=== PATIENT | male | born 1945 | race Caucasian/White ===

== ENCOUNTER → 2020-02-05 14:33 | Outpatient (BNVA) | payer MEDICARE, MEDICAID, SELFPAY | PROVIDERS: Family Provider Family Medicine; Referring Provider Physician Assistant Medical; Visit Provider Specialist | DX: M25.559 Pain in unspecified hip (principal); Z96.641 Presence of right artificial hip joint | CPT/HCPCS: 72170 ==

== ENCOUNTER → 2020-04-01 16:30 | Outpatient (BNVA) | payer MEDICARE, MEDICAID, SELFPAY | PROVIDERS: Family Provider Family Medicine; Visit Provider Specialist | DX: M16.12 Unilateral primary osteoarthritis, left hip (principal) | CPT/HCPCS: 81000; 87081 ==

== ENCOUNTER 2020-04-07 06:26 | Inpatient (IN) | payer MEDICARE, MEDICAID, SELFPAY ==
--- NOTE | 2020-04-03 14:55 | ECG_ITS ---
[facility] Test Date: 2020-04-03 Pat Name: Ted Borden Department: Room: Gender: Male Core Dipper: : 1945 Requested By: Swathi Kidd Order Number: [id number] Trevor MD: Grant Peguero M.D. Measurements Intervals [place] Rate: 67 P: 78 WV: 165 QRS: -35 QRSD: 135 T: 28 QT: 426 QTc: 450 Interpretive Statements SINUS RHYTHM MARKED LEFT AXIS DEVIATION [QRS AXIS < -30] INTRAVENTRICULAR CONDUCTION DELAY [130+ ms QRS DURATION] POSSIBLE LEFT VENTRICULAR HYPERTROPHY [VOLTAGE CRITERIA PLUS LAE OR QRS WIDENING] No previous ECG available for comparison Electronically Signed On 04-03-2020 16:12:12 CDT by Grant Peguero M.D. [id number]
--- NOTE | 2020-04-03 15:05 | XR_ITS ---
WS: [id number] Chest 2 views, 04/03/2020 Clinical Data: preop Comparison: None. Findings: No nodules, masses or effusions are seen. The heart is normal. The pulmonary vascularity is not increased. No pneumonia or pneumothorax is seen. XR/XR chest 2V* [id number] Impression: Negative chest.
--- NOTE | 2020-04-03 15:17 | P.ANESASSM_ITS ---
Pre-Anesthetic Assessment Pre-Anesthetic Assessment: Height/Weight: Height 1.8 m Weight 119.748 kg Preop Diagnosis: Left hip DJD Proposed Procedure: Operation Date: 04/07/20 08:50 Proposed Procedures p Total Hip Arthroplasty 95524/ m16.12 left hip osteoarthritis(Left) - Felicia Duarte MD Familial anesthetic complications: None Social: Social History: Tobacco Exam: Pre-Anes Outpt Exam: alert, oriented x 3, clear to auscultation bilaterally and regular rate & rhythm Additional Exam Findings (including area of procedure): coarse and diminshed breath sounds Airway: Cervical ROM: WNL MP: 3 Dentition: Other (edentulous) Additional comments: full najera Pulmonary: Pulmonary: COPD (wears 2 L NC during day and 3 L NC at night), ANDREW and Sleep apnea (cpap and night) CV/HEM: CV/HEM: Afib (no recent episodes), Angina (Stable) (hx of chest pains), CAD (stent placed 2013), HTN, AR and PVD Comments: echo 02/06 ef 60%, mild LVH, Mild Metabolic: Metabolic: Morbid obesity Musc/skel: Comments: wheelchair because of hip pain Neuropsych: Comments: B/L carotid stenosis Anesthetic Plan: ASA status: 4 Anesthesia: General Risk of > 500 ml blood loss (7ml/kg in children): No Other Pertinent Information: An EKG 11/2018 was done, to further evaluate the symptoms. The EKG showed a sinus; With incomplete right bundle-branch block pattern. Nonspecific ST changes. Left axis deviation. Features of LVH. Possible left atrial enlargement. 01/2019 ECHO Normal left ventricular size and systolic function, EF 60 %. Mild left ventricular hypertrophy. No regional wall motion abnormalities. Grade I/IV diastolic dysfunction (abnormal relaxation filling pattern), normal to mildly elevated filling pressures. Mild aortic valve stenosis, mean gradient 14.6 mmHg, NUNU 1.5 cm squared. Peak velocity 2.6. Her per second with a peak gradient of 27 and a mean gradient of 15 mmHg. Thickened mitral valve. Moderate mitral annular calcification. Mildly increased left atrial size. There is no pericardial effusion. Pulmonary artery systolic pressure is within normal limits. No previous study is available for comparison. 03/2019 CAROTID DUPLEX Bilateral ICA stenosis less than 50%. Mild carotid atherosclerosis. 01/2019 LMM IMPRESSIONS 1. Nonspecific EKG changes with the LexiScan infusion 2. No LexiScan induced chest pain or cardiac arrhythmia 3. Normal blood pressure and heart rate response #1. Myocardial perfusion imaging revealing a moderate area of persistent decreased tracer uptake in the inferior, inferolateral and apical regions, suggestive of myocardial scarring in the distribution of the right coronary artery/circumflex artery. #2. Markedly diminished LV ejection fraction of 28%. #3. Moderately dilated LV cavity with an end systolic volume of 121 mL. #4. Multiple wall motion abnormalities as mentioned above. No significant coronary ischemia, based on the above findings. No similar previous studies available for comparison 12/2018 EVENT MONITOR 1. The baseline rhythm was found to be normal sinus rate of 67 beats per minute 2. The above-mentioned symptom was not found to be associated with any significant arrhythmias. One episode of nonsustained V. tach of 6 beats was noted, found to be asymptomatic 3. No other significant tachycardia or bradycardia arrhythmias. PFSH Anesthesia PFSH: Medical History (Updated 04/03/20 @ 14:07 by Felicia Duarte MD) Aortic valve stenosis Atherosclerosis of coronary artery of [place] heart with stable angina pectoris Atrial fibrillation Bilateral carotid artery stenosis Hyperlipidemia Hypertension Ischemic cardiomyopathy Surgical History S/P hip replacement Right Family History Other CAD (coronary artery disease) Stroke Social History Smoking and tobacco status: current every day smoker e-cigarettes E-Cigarette Details: e-cigarette Alcohol intake: never Data Anesthesia CBC & Chem 7: 04/03/20 15:04 04/03/20 15:04 Cardiac Studies: No Data to Display
[2020-04-03 15:29] LABS: Basophils # 0.1 10^3/uL (0.0-0.1); Basophils % 1.2 %; Eosinophils # 0.2 10^3/uL (0.0-0.8); Eosinophils % 2.6 %; Lymphocytes # 2.4 10^3/uL (0.8-4.8); Lymphocytes % 28.3 %; Mean Corpuscular HGB Conc 34.1 g/dL (30.0-36.0); Mean Corpuscular Hemoglobin 32.8 pg (28.0-34.0); Mean Platelet Volume 11.1 fL (7.4-10.4); Monocytes # 0.8 10^3/uL (0.2-0.9); Monocytes % 9.7 %; Neutrophils # 4.88 10^3/uL (1.8-7.7); Neutrophils % 57.8 %; Nucleated Red Blood Cells % 0 %; Platelet Count 198 10^3/cmm (130-400); Red Blood Count 4.27 10^6/uL (4.1-5.3); Red Cell Distribution Width 13.3 % (12.1-15.1); White Blood Count 8.4 10^3/uL (4.0-10.0)
[2020-04-03 15:46] LABS: Alanine Aminotransferase 25 U/L (0-41); Albumin Level 4.7 g/dL (3.5-5.2); Alkaline Phosphatase 51 IU/L (40-130); Anion Gap 11.1 (5-19); Aspartate Amino Transferase 25 U/L (0-40); Blood Urea Nitrogen 15 mg/dL (8-23); Calcium 9.6 mg/dL (8.5-10.5); Carbon Dioxide 28 mmol/L (22-29); Chloride 102 mmol/L (98-107); Glucose 99 mg/dL (65-115); Osmolality Calculated 280 mOsm/kg (285-295); Potassium 4.1 mmol/L (3.5-5.1); Sodium 137 mmol/L (136-145); Total Bilirubin 0.4 mg/dL (0.15-1.2); Total Protein 7.7 g/dL (6.6-8.7)
[2020-04-05 15:27] LABS: Coronavirus Lab Test PTC Negative
[2020-04-07] VITALS (16 sets, daily range): BP systolic 113–168; BP diastolic 57–76; PULSE 65–102; RESP 16–23; TEMP 36.3–37.1; O2SAT 91–97
--- NOTE | 2020-04-07 06:57 | W.PM.OPSUD ---
Surgery/Procedure H&P Update DATE OF PROCEDURE: April 07, 2020 DATE H&P PERFORMED: 04/02/20 H&P UPDATE INFORMATION: I have reviewed H&P completed within last 30 days, I have examined patient prior to procedure and H&P is in [facility] EMR on date indicated PREOP DIAGNOSIS: Left hip DJD PLANNED PROCEDURE: Operation Date: 04/07/20 08:00 Proposed Procedures p Total Hip Arthroplasty 28045/ m16.12 left hip osteoarthritis(Left) - Felicia Duarte MD Related Problem List Diagnoses (1) Primary osteoarthritis of left hip:
[2020-04-07] MEDS: sodium chloride 0.9% 1,000 ML 30 ML IV (07:30)
[2020-04-07] MEDS: CELEcoxib 200 mg Capsule 400 MG PO (07:31)
[2020-04-07] MEDS: vancomycin 1,000 MG in sodium chloride 0.9% 250 ML 250 MG IV ×2 (07:38→16:43)
--- NOTE | 2020-04-07 07:43 | P.ANESUD_ITS ---
Pre-Anesthetic Update Pre-Anesthetic Assessment: Date of Surgery/Procedure: 04/07/20 Preop Josie gnosis: Left hip DJD Proposed Procedure: Operation Date: 04/07/20 08:00 Proposed Procedures p Total Hip Arthroplasty 26222/ m16.12 left hip osteoarthritis(Left) - Felicia Duarte MD Any changes to Pre-Anesthetic Assessment?: No Last Intake: Intake Last Liquid Date 04/06/20 Last Liquid Time 20:00 Last Solid Date 04/06/20 Last Solid Time 20:00 Labs Last 48hrs: Laboratory Results - last 48 hr 04/03/20 15:04 Nasal/Oral COVID-1 9 PCR Negative Vitals: Temperature 98.2 F 04/07/20 07:10 Temperature Source Temporal Artery S can 04/07/20 07:10 Pulse Rate 102 H 04/07/20 07:10 Pulse Strength 3+ Normal 04/07/20 07:10 Respiratory Rate 20 H 04/07/20 07:10 Blood Pressure 149/74 04/07/20 07:10 Blood Pressure Yaritza n 99 04/07/20 07:10 Pulse Oximetry 95 04/07/20 07:10 Oxygen Delivery Me thod 04/07/20 07:10 Oxygen Flow Rate 2 04/07/20 07:10 Exam: Pre-Anes Outpt Exam: alert, oriented x 3, clear to auscultation bilaterally and regular rate & rhythm Cardiac Studies: No Data to Display
[2020-04-07] MEDS: vancomycin 1,000 MG SDV 1000 MG XX (09:26)
[2020-04-07] MEDS: ceFAZolin 1,000 mg SDV 1000 MG IRRIGATION (09:26)
--- NOTE | 2020-04-07 10:57 | PC.CHAP ---
Pastoral Care Encounter/Spiritual Assessment Type of Contact [] Declined slitting machine operator helper visit [] Patient/Family/Request visit [] Outpatient visit [] Follow-up visit [] Physician referral [] Code/Alert [] Routine visit [] Staff referral [] Actively dying [] Patient sleeping [] Family support [] [] Out of room [] Palliative care [] [] Receiving care in room [] Pre-surgical visit [] Trauma [] Long length of stay [] ICU visit [] Other: Procedure out of room moved to [facility] Relational/Emotional Strength [] Patient feels connected with others/family/visitors/staff [] Distress [] Loneliness/isolation [] Abandonment Spirituality of Patient [] Person of Pema [] Attends Rastafarian of their Pema [] Believes in Prayer [] Reads Bible or Muslim materials [] There are Spiritual issues to be addressed Acoustic Sensor Operator Interventions [] Prayer [] Active listening [] Non-anxious presence [] Spiritual/emotional support [] Crisis/trauma care [] Spiritual counseling [] Bereavement support [] Provided bereavement packet [] Provided Bible/devotional materials [] Provided toy/stuffed animal, coloring book to patient or family member [] Provided Communion [] Anointing/[place] [] Salvation [] Completed spiritual assessment [] Other: Impact on Illness or Injury [] Angry [] Fearful [] Anxious [] Often cries [] Exhaustion [] Unable to work [] Unable to attend rastafari [] Unable to walk/stand [] Unable to read [] Unable to drive [] Unable to eat/drink [] Unable to sleep [] Unable to be with family [] Patient intubated [] Other: Summary Procedure out of room moved to [facility] Time spent with patient 5 mins
[2020-04-07 11:10] LABS: Hematocrit 37.1 % (42.0-52.0); Hemoglobin 12.3 g/dL (11.7-16.6)
--- NOTE | 2020-04-07 11:54 | XR_ITS ---
WS: [id number] EXAM: AP PELVIS DATE OF EXAMINATION: 04/07/2020, 1212 hours COMPARISON: AP pelvis examination from 02/05/2020. HISTORY: Patient is 75 years old with new left total hip arthroplasty. FINDINGS: Since the prior examination there has been interval placement of a noncemented left total hip arthrop lasty. No hardware complication is seen. No bony malalignment. Air in the soft tissues correlates wit h an open procedure. Right total hip arthroplasty changes similar. XR/XR pelvis 1-2V* [id number] IMPRESSION: New noncemented left total hip arthroplasty without acute abnormality.
--- NOTE | 2020-04-07 11:56 | P.OP_ITS ---
Operative Report Date of procedure: April 07, 2020 Pre-op Diagnosis: Left hip DJD Post-op diagnosis: same Post-op Findings: Significant osteoarthritic findings. Postoperatively, the patient was stable at 90 degrees of flexion with 30 degrees of abduction and 60 degrees of internal rotation. He was stable to gentle toe hang and to external rotation. Procedure Done: Left total hip arthroplasty utilizing the following implants: The Rebekah Accolade II total hip system with a size 6 x 127 degree neck angle hip stem, a Trident II Tritanium solid back acetabular shell size 52 with an E alpha code, an MDM liner size 42 mm inner diameter with an E alpha code, and MDM insert size 28 mm inner diameter by 42E to match the MDM liner, and a Biolox ceramic femoral head size 28 mm x +0 mm offset Specimens removed/disposition: Femoral head, disposed of Pathology: none sent Surgeon: Felicia Duarte Gimp Buttonhole Machine Operator: Sera Martin Anesthesia: General (Intubated, ASA 4) Estimated blood loss (mL): 600 IV fluids (mL): 1,400 Urine output (mL): 300 Complications: None Findings: Severe degenerative osteoarthritis of the left hip. The patient is status post right total hip arthroplasty Condition: stable Disposition: PACU (Then to floor for postoperative rehabilitation and pain management) Brief History: This 75-year-old gentleman was admitted today with complaints of severe left hip pain secondary to degenerative osteoarthritis. Remotely, he underwent right total hip arthroplasty, and following that procedure, he remained approximately 7 to 10 days in the hospital. Preoperatively, I did notify the hospitalist team of the patient's admission and my request that they help to follow the patient postoperatively. He was made a mandatory inpatient secondary to his significant cardiac history. He did have cardiac clearance preoperatively. Procedure: Patient was brought to the operating theater. He was transferred to the operating room table and subsequently administered a general anesthetic intubated. Following administration of adequate anesthesia, the patient was placed in full lateral position and held in position with a pegboard. Also, the patient had minimal movement in his left lower extremity preoperatively. The patient's left lower extremity was then prepped and draped in usual fashion utilizing DuraPrep. It was draped free. Following prepping and draping a surgical pause was performed. At the time of surgical pause, we identified the site and side of surgery. We also identified the patient and preoperative surgical markings. Confirmation was made of equipment availability. Additionally, the patient's preoperative IV antibiotic, vancomycin 1 g, was confirmed as being given in a timely fashion and being the appropriate antibiotic. Following the surgical pause, an incision was made centering over the patient's greater trochanter continuing proximally and distally as necessary to allow access to the hip joint. Dissection continued through skin and soft tissues using a scalpel, and hemostasis was obtained using electrocautery. The tensor fascia caro was identified and incised longitudinally. The patient had quite deep subcutaneous tissue, and this required significant retraction and made exposure of the joint quite difficult. Sciatic nerve was identified and protected throughout the surgical procedure. A Charnley U retractor was placed after the tensor fascia caro had been incised longitudinally, and the sciatic nerve had been identified. The hip was internally rotated, and the piriformis muscle was identified and tagged. Piriformis muscle along with the remaining short external rotators were then incised from the posterior aspect of the hip joint. These were retracted posteriorly. The capsule was entered in a T-type fashion with the edges being tagged, and subsequently the hip was dislocated. Following hip dislocation, a femoral neck osteotomy was accomplished in the appropriate position. The head was sent to pathology. We then evaluated the acetabulum. The femur was retracted anteriorly. Soft tissues were retracted and the labrum was removed. We then began reaming. Exposure was noted to be difficult secondary to this patient's size, and the acetabulum was noted to be quite small with respect to the soft tissue envelope surrounding the patient's hip. Once the femoral head was removed, we reamed to a size 51 to allow for a size 52 acetabular shell. The acetabulum was impacted into position. It was noted that the acetabulum matched the bony anatomy. There were osteophytes posteriorly which were removed as well. The cup was noted to seat nicely and had good fixation upon impact. The MDM liner was then impacted into position with significant difficulty secondary to the soft tissue. We confirmed that the acetabular insert was completely seated prior to addressing the femur. Attention was directed to the proximal femur. The proximal femur was lifted out of the wound. A canal finder was passed after the box chisel. The reamer was used to lateralize. We then began broaching. We broached sequentially and had excellent fit and fill with the size 6 Accolade II broach. A trial reduction was accomplished with a -4 mm offset femoral head, and following this, we increased to the +0 mm offset femoral head to provide better stability and leg length. The patient soft tissues were quite retracted, so the -4 was used to further stretch out the muscles around the hip. With this in place, we had the above stabilities, and at that time, we felt that we had restored leg lengths. We also felt that we had excellent stability noted above. Therefore, trial components were removed after the hip was dislocated. The size 6 Accolade II stem with a 127 degree neck was impacted into position without difficulty and onto this was placed a 28 mm by +0 mm offset femoral head which had been placed into the MDM insert size 42E with a 28 mm outer diameter. With a +0 mm offset femoral head, we had the above-noted stability. The stem was noted to seat nicely prior to placement of the femoral head MDM insert construct. The wound was copiously irrigated with 20 mL of Betadine and 500 mL of normal saline mixed together. Subsequently, we suctioned this out and irrigated the wound copiously with lactated Ringer's. At this time, with all components in appropriate position, the hip was reduced. Following reduction of the prosthesis once again, we confirmed the stability of the hip. Leg lengths were also felt to be satisfactory. Being satisfied with the prosthesis, attention was directed to closure. Closure was accomplished with 0 Vicryl in the capsular tissues. Piriformis was reattached with 0 Vicryl as well. Tensor fascia caro was closed with 0 Vicryl in an interrupted fashion. The subcutaneous tissues were closed the combination of 0 Vicryl and 2-0 Monocryl. Vancomycin powder and a Gelfoam thrombin mixture was placed into the wound as well. The skin was closed with a running 3-0 Monocryl followed by Exofin and Steri-Strips. This was covered with Telfa and Tegaderm. The patient was placed in an abduction pillow. He was returned the Recovery Room in a satisfactory condition and will be discharged to the floor for postoperative rehabilitation and pain management. There were no complications. Associated Problem List Diagnoses (1) Primary osteoarthritis of left hip:
--- NOTE | 2020-04-07 12:36 | SUR.PHASEI ---
1230 PT TO FLOOR PER BED LT HIP DRESSSING D/I FIRST ICE TO HIP STRONG REGULAR PULSE TO DISTAL FOOT HANDOFF AT BEDSIDE PT AAWKE AND TALKATIVE WITH STAFF. BP 133/73, HR 75, RESP 22 SATS ON 3LNC 94%
--- NOTE | 2020-04-07 12:40 | ANE.PACU2 ---
Inpatient post-anesthesia follow up: Airway intact: Yes Vital signs: Temperature 98.3 F Pulse Rate 68 Respiratory Rate 18 Blood Pressure 116/64 Pulse Oximetry 94 Oxygen Delivery Me thod CPAP Oxygen Flow Rate 4.5 Fraction of Inspir ed Oxygen Hydration adequate: Yes Nausea and vomiting: No Pain level: 1 Mental status: Baseline
--- NOTE | 2020-04-07 14:45 | P.CONIM_ITS ---
Providers/Reason For Consult Consulting Physican/Specialty*: Ondina Pompa, hospitalist Reason for Consult*: Medical management Requesting Physcian: Dr. Duarte, orthopedic surgery Attending Physician: Felicia Duarte MD Primary Care Provider: Musa Myers History of Present Illness History of Present Illness Ted Borden is a 75 year old male with a past medical history of aortic stenosis, coronary artery disease, atrial fibrillation, bilateral carotid artery stenosis, hypertension and congestive heart failure that presented to the hospital today for left total hip arthroplasty. Patient reported that he had been doing well prior to surgery, no recent illness, no fevers or chills. He reports that his only concern was hip pain. He denies any concerns at time of exam, no chest pain or shortness of breath. Review of Systems Const: Denies: fever(s) or chills Eyes: Denies: change in vision ENMT: Denies: nasal congestion Card: Denies: chest pain, palpitations or edema Resp: Denies: dyspnea, productive cough or hemoptysis GI: Denies: abdominal pain, nausea, vomiting, diarrhea, constipation, hematochezia or melena : Denies: dysuria or hematuria Musc: Reports: extremity pain (Postoperative discomfort in the left hip); Denies: muscle cramps Skin/Breast: Denies: rash or new lesions Neuro: Denies: headache(s) or dizziness Psych: Denies: anxiety or depression Endo: Denies: polyuria or hot flashes Jez/Lymph: Denies: easy bruising or easy bleeding Meds/Allergies Home Medications and Allergies Home Medications Medication Instructions Recorded Confirmed Last Taken Type lisinopril 10 mg tablet 10 mg PO DAILY #90 tab 11/18/19 04/03/20 04/06/20 Rx aspirin 325 mg tablet 325 mg PO DAILY 01/06/20 04/03/20 04/03/20 History atorvastatin 40 mg tablet 40 mg PO DAILY 01/06/20 04/03/20 04/06/20 History metoprolol tartrate 25 mg tablet 12.5 mg PO DAILY 01/06/20 04/03/20 04/06/20 22:00 History nitroglycerin 0.4 mg sublingual 0.4 mg SUBLINGUAL Q5M PRN 01/06/20 04/03/20 Unknown History tablet sertraline 50 mg tablet 50 mg PO DAILY 01/06/20 04/03/20 04/06/20 History tizanidine 2 mg tablet 2 mg PO Q8H PRN 01/06/20 04/03/20 04/06/20 History acetaminophen [Tylenol Arthritis 650 mg PO Q8H PRN 04/03/20 04/03/20 Unknown History Pain] albuterol sulfate 90 mcg INHALATION BID PRN 04/03/20 04/03/20 04/07/20 History arformoterol [Brovana] 2 ml INHALATION BID 04/03/20 04/03/20 04/06/20 History budesonide 0.25 mg INHALATION BID 04/03/20 04/03/20 04/06/20 History ipratropium-albuterol 3 ml INHALATION BID 04/03/20 04/03/20 04/06/20 History multivitamin 1 tab PO DAILY 04/03/20 04/07/20 04/07/20 History Allergies Allergy/AdvReac Type Severity Reaction Status Date / Time erythromycin base Allergy Mild ALGY-Rash Verified 04/03/20 14:25 Current Medications Current Medications Generic Name Dose Route Start Last Admin Trade Name Freq PRN Reason Stop Dose Admin Chlorhexidine Gluconate 30 ml 04/07/20 13:00 04/07/20 13:14 Perigard MUCOUS MEM Not Given QID ILDA PFSH Acute PFSH: Medical History Aortic valve stenosis Atherosclerosis of coronary artery of [place] heart with stable angina pectoris Atrial fibrillation Bilateral carotid artery stenosis Hyperlipidemia Hypertension Ischemic cardiomyopathy Surgical History History of total left hip arthroplasty S/P hip replacement Right Family History Other CAD (coronary artery disease) Stroke Social History Smoking and tobacco status: current every day smoker e-cigarettes E-Cigarette Details: e-cigarette Alcohol intake: never Vitals/I&O/Wt Last Vital Signs Temp 98.0 F 04/07/20 12:26 Pulse 81 04/07/20 13:54 Resp 18 04/07/20 13:54 BP 133/73 04/07/20 12:26 Pulse Ox 94 04/07/20 13:54 04/06/20 04/07/20 04/07/20 22:59 06:59 14:59 Intake Total 2368 / 2368 Output Total 1200 / 1200 Balance 1168 / 1168 Physical Exam Urinary Catheter Management^: F: Cath Placed During This Visit: yes Urinary Catheter Date of Insertion: 04/07/20 Urinary Catheter Time of Insertion: 08:55 A&P Assessment and plan (1) Atrial fibrillation: Continue on metoprolol 12.5 mg twice daily Aspirin 325 mg daily Patient is not on anticoagulation, previously had been taken off of anticoagulation. On recent Holter monitor did not have any recurrence of atrial fibrillation. Continue with close monitoring on telemetry. Hold off on full dose anticoagulation at this time Status: Acute Qualifiers: Atrial fibrillation type: paroxysmal Qualified Code(s): I48.0 - Paroxysmal atrial fibrillation (2) Bilateral carotid artery stenosis: Continue aspirin and atorvastatin Status: Acute (3) Hyperlipidemia: Continue atorvastatin 40 mg daily Status: Acute Qualifiers: Hyperlipidemia type: mixed hyperlipidemia Qualified Code(s): E78.2 - Mixed hyperlipidemia (4) Hypertension: Continue lisinopril 10 mg, metoprolol 12.5 mg twice daily Status: Acute Qualifiers: Hypertension type: essential hypertension Qualified Code(s): I10 - Essential (primary) hypertension (5) Aortic valve stenosis: Mild aortic valve stenosis, continue close outpatient follow-up Status: Acute Qualifiers: Cardiac valve disease etiology: nonrheumatic Qualified Code(s): I35.0 - Nonrheumatic aortic (valve) stenosis (6) Atherosclerosis of coronary artery of [place] heart with stable angina pectoris: Status: Acute Qualifiers: Coronary Disease-Associated Artery/Lesion type: [place] artery Qualified Code(s): I25.118 - Atherosclerotic heart disease of [place] coronary artery with other forms of angina pectoris (7) Primary osteoarthritis of left hip: Status post total hip arthroplasty performed by Dr. Duarte Status: Acute Consult Attestations Medical Necessity Statement: Patient requires hospitalization status post total hip arthroplasty with aortic stenosis, coronary artery disease, atrial fibrillation, hypertension and bilateral carotid artery stenosis. Expected stay greater than 2 midnights Coding Level of Care Code Acute Advertising Strategist for [facility] Fwd Diagnoses Atrial fibrillation I48.0 Atrial fibrillation type: paroxysmal Bilateral carotid artery stenosis I65.23 Hyperlipidemia E78.2 Hyperlipidemia type: mixed hyperlipidemia Hypertension I10 Hypertension type: essential hypertension Aortic valve stenosis I35.0 Cardiac valve disease etiology: nonrheumatic Atherosclerosis of coronary artery of [place] heart with stable angina pectoris I25.118 Coronary Disease-Associated Artery/Lesion type: [place] artery Primary osteoarthritis of left hip M16.12
[2020-04-07] MEDS: chlorhexidine gluconate 0.12% Btl 473 mL 30 ML MUCOUS MEM ×2 (16:43→21:14)
[2020-04-07] MEDS: metoprolol tartrate 25 mg Tablet 12.5 MG PO (16:44)
[2020-04-07] MEDS: calcium carbonate 500 mg Chew Tablet 1000 MG PO (16:44)
[2020-04-07] MEDS: CELEcoxib 200 mg Capsule PO (16:44)
[2020-04-07] MEDS: iron polysaccharide complex 150 mg Capsule PO (16:45)
[2020-04-07] MEDS: sennosides-docusate Tablet 2 TAB PO (16:45)
--- NOTE | 2020-04-07 19:12 | PC.NURSE ---
End of shift summary Patient had a left total hip replacement today. Patient is A&Ox3. Respirations even and non-labored on 3 liters of oxygen. Patient uses 2 liter of oxygen at home regularly. Patient has his home CPAP to use while here. Patient dressing is clean and dry and ice is applied. Patient is up to chair. Patient has a Montoya Catheter in place.
[2020-04-07] MEDS: ipratropium-albuterol 3 mL Neb INHALATION (20:33)
[2020-04-07] MEDS: budesonide 0.5 mg/2 mL Neb 0.25 MG INHALATION (20:33)
[2020-04-08] VITALS (17 sets, daily range): BP systolic 107–139; BP diastolic 53–67; PULSE 61–101; RESP 14–20; TEMP 36.4–36.9; O2SAT 87–98
[2020-04-08] MEDS: CELEcoxib 200 mg Capsule PO ×2 (01:32→13:59)
[2020-04-08 04:36] LABS: Basophils % 0.1 %; Hematocrit 30.5 % (42.0-52.0); Hemoglobin 9.9 g/dL (11.7-16.6); Lymphocytes # 1.2 10^3/uL (0.8-4.8); Lymphocytes % 8.8 %; Mean Corpuscular HGB Conc 32.5 g/dL (30.0-36.0); Mean Corpuscular Hemoglobin 31.1 pg (28.0-34.0); Mean Corpuscular Volume 95.9 fL (80-94); Mean Platelet Volume 10.8 fL (7.4-10.4); Monocytes # 0.9 10^3/uL (0.2-0.9); Monocytes % 6.6 %; Neutrophils % 83.9 %; Nucleated Red Blood Cells % 0 %; Platelet Count 152 10^3/cmm (130-400); Red Blood Count 3.18 10^6/uL (4.1-5.3); Red Cell Distribution Width 13.3 % (12.1-15.1); White Blood Count 13.5 10^3/uL (4.0-10.0)
[2020-04-08 05:06] LABS: Anion Gap 16.6 (5-19); Blood Urea Nitrogen 17 mg/dL (8-23); Carbon Dioxide 24 mmol/L (22-29); Chloride 99 mmol/L (98-107); Glucose 170 mg/dL (65-115); Osmolality Calculated 280 mOsm/kg (285-295); Potassium 4.6 mmol/L (3.5-5.1); Sodium 135 mmol/L (136-145)
[2020-04-08] MEDS: metoprolol tartrate 25 mg Tablet 12.5 MG PO ×2 (05:30→17:36)
[2020-04-08] MEDS: albuterol 8 gm MDI 1 PUFF INHALATION ×2 (05:55→17:54)
[2020-04-08] MEDS: budesonide 0.5 mg/2 mL Neb 0.25 MG INHALATION ×2 (08:47→20:32)
[2020-04-08] MEDS: ipratropium-albuterol 3 mL Neb INHALATION ×2 (08:48→20:33)
[2020-04-08] MEDS: lisinopril 10 mg Tablet PO (08:56)
[2020-04-08] MEDS: multivitamin therapeutic Tablet 1 TAB PO (08:56)
[2020-04-08] MEDS: sertraline 50 mg Tablet PO (08:56)
[2020-04-08] MEDS: atorvastatin 40 mg Tablet PO (08:56)
[2020-04-08] MEDS: cholecalciferol (vitamin D3) 1,000 unit Tablet 1000 UNIT PO (08:56)
[2020-04-08] MEDS: iron polysaccharide complex 150 mg Capsule PO ×2 (08:56→17:37)
[2020-04-08] MEDS: sennosides-docusate Tablet 2 TAB PO (08:57)
[2020-04-08] MEDS: calcium carbonate 500 mg Chew Tablet 1000 MG PO ×2 (08:57→17:36)
[2020-04-08] MEDS: chlorhexidine gluconate 0.12% Btl 473 mL 30 ML MUCOUS MEM ×3 (08:59→17:37)
[2020-04-08] MEDS: aspirin 325 mg Tablet PO (09:00)
--- NOTE | 2020-04-08 10:23 | P.PN_ITS ---
Subjective Subjective: Interval history: Patient awake sitting up in the chair at time of exam this morning. He denied any chest pain or shortness of breath. Reported nonproductive cough which is chronic in nature due to smoking. Patient reported the pain is well controlled. Reported that he does not have any nausea, had a bowel movement this morning. RN at bedside during exam Vitals/I&O/Wt Last Vital Signs Temp 98.3 F 04/08/20 07:21 Pulse 87 04/08/20 08:57 Resp 20 H 04/08/20 08:55 BP 135/67 04/08/20 07:21 Pulse Ox 95 04/08/20 08:55 04/07/20 04/08/20 04/08/20 22:59 06:59 14:59 Intake Total 440 / 2808 100 / 2908 480 / 480 Output Total 500 / 1700 1400 / 3100 300 / 300 Balance -60 / 1108 -1300 / -192 180 / 180 Physical Exam Const: COMMON NORMALS: patient oriented x3 and alert GENERAL APPEARANCE: cooperative ORIENTATION/CONSCIOUSNESS: Yes awake, Yes oriented to person, Yes oriented to place and Yes oriented to time HENMT: COMMON NORMALS: normocephalic and atraumatic HEAD & SCALP: normocephalic and atraumatic Eye: COMMON NORMALS: Equal, round and reactive pupils present PUPIL: Yes Equal, round and reactive pupils present Neck/C-Spine: COMMON NORMALS: supple GENERAL: Yes normal visual inspection Resp: COMMON NORMALS: normal respiratory effort and clear to auscultation bilaterally EFFORT & INSPECTION: Yes able to speak in complete sentences AUSCULTATION: clear to auscultation bilaterally and no rhonchi OTHER: Faint end expiratory wheezing, prolonged expiratory phase Cardio: COMMON NORMALS: regular rate, regular rhythm and No murmurs present ( Cardio) RATE: regular rate RHYTHM: regular rhythm GI: COMMON NORMALS: Soft to palpation and non-tender INSPECTION: No abdominal distension AUSCULTATION: Yes normoactive bowel sounds PALPATION: Yes Soft to palpation Extremity: COMMON NORMALS: no calf tenderness NARRATIVE EXTREMITY EXAM: Postoperative dressing in place in the left hip Neuro: COMMON NORMALS: patient oriented x3, CN's II-XII intact bilaterally, moves all extremities and no focal motor deficits SENSORIUM/ORIENTATION: Yes alert, Yes oriented to person, Yes oriented to place and Yes oriented to time SPEECH: speech normal Psych: COMMON NORMALS: mental status grossly normal and cooperative Skin: COMMON NORMALS: no rashes or lesions noted GENERAL SKIN EXAM: no rashes or lesions noted Urinary Catheter Management^: F: Cath Placed During This Visit: yes Reason for Continuing Indwelling Catheter: Perioperative Use in Selected Surgeries Urinary Catheter Date of Insertion: 04/07/20 Urinary Catheter Time of Insertion: 08:55 Data : 04/08/20 04:06 04/08/20 04:06 A&P Assessment and plan (1) Atrial fibrillation: Continue on metoprolol 12.5 mg twice daily Aspirin 325 mg daily Patient is not on anticoagulation, previously had been taken off of anticoagulation. On recent Holter monitor did not have any recurrence of atrial fibrillation. Continue with close monitoring on telemetry. Hold off on full dose anticoagulation at this time Status: Acute Qualifiers: Atrial fibrillation type: paroxysmal Qualified Code(s): I48.0 - Paroxysmal atrial fibrillation (2) Bilateral carotid artery stenosis: Continue aspirin and atorvastatin Status: Acute (3) Hyperlipidemia: Continue atorvastatin 40 mg daily Status: Acute Qualifiers: Hyperlipidemia type: mixed hyperlipidemia Qualified Code(s): E78.2 - Mixed hyperlipidemia (4) Hypertension: Continue lisinopril 10 mg, metoprolol 12.5 mg twice daily Status: Acute Qualifiers: Hypertension type: essential hypertension Qualified Code(s): I10 - Essential (primary) hypertension (5) Aortic valve stenosis: Mild aortic valve stenosis, continue close outpatient follow-up Status: Acute Qualifiers: Cardiac valve disease etiology: nonrheumatic Qualified Code(s): I35.0 - Nonrheumatic aortic (valve) stenosis (6) Atherosclerosis of coronary artery of [place] heart with stable angina pectoris: Status: Acute Qualifiers: Coronary Disease-Associated Artery/Lesion type: [place] artery Qualified Code(s): I25.118 - Atherosclerotic heart disease of [place] coronary artery with other forms of angina pectoris (7) Primary osteoarthritis of left hip: Status post total hip arthroplasty performed by Dr. Duarte on 04/07/2020 Status: Acute Additional A&P Information Chronic oxygen dependence of 2 L of oxygen by nasal cannula at baseline, 3 L at night Obstructive sleep apnea: Continue home CPAP Attestations Medical Necessity Statement*: Patient requires continued hospitalization status post total hip arthroplasty with atrial fibrillation, carotid stenosis, aortic stenosis, hypertension and hyperlipidemia Coding Level of Care Code Acute Cableway Operator for Chg Fwd Diagnoses Atrial fibrillation I48.0 Atrial fibrillation type: paroxysmal Bilateral carotid artery stenosis I65.23 Hyperlipidemia E78.2 Hyperlipidemia type: mixed hyperlipidemia Hypertension I10 Hypertension type: essential hypertension Aortic valve stenosis I35.0 Cardiac valve disease etiology: nonrheumatic Atherosclerosis of coronary artery of [place] heart with stable angina pectoris I25.118 Coronary Disease-Associated Artery/Lesion type: [place] artery Primary osteoarthritis of left hip M16.12
--- NOTE | 2020-04-08 13:42 | PM.PN ---
Subjective Subjective: Interval history: The patient is lying in bed, but he has worked with physical therapy. He appears comfortable. H&H did drop, but he denies any symptoms at the present time. Medications: Reviewed: Yes Vitals/I&O/Wt Last Vital Signs Temp 98.2 F 04/08/20 11:17 Pulse 70 04/08/20 11:17 Resp 18 04/08/20 11:17 BP 123/60 04/08/20 11:17 Pulse Ox 97 04/08/20 11:17 04/07/20 04/08/20 04/08/20 22:59 06:59 14:59 Intake Total 440 / 2808 100 / 2908 840 / 840 Output Total 500 / 1700 1400 / 3100 300 / 300 Balance -60 / 1108 -1300 / -192 540 / 540 Physical Exam Const: COMMON NORMALS: no acute distress, average body habitus, patient oriented x3 and alert GENERAL APPEARANCE: cooperative and comfortable ORIENTATION/CONSCIOUSNESS: Yes awake HENMT: COMMON NORMALS: normocephalic and atraumatic HEAD & SCALP: normocephalic and atraumatic Eye: GENERAL EYE: appearance normal, both eyes and all related structures Chest: COMMONS NORMALS: normal inspection of the chest Resp: COMMON NORMALS: normal respiratory effort EFFORT & INSPECTION: Yes able to speak in complete sentences and Yes symmetric chest movement Extremity: LEFT LOWER EXTREMITY: Yes hip joint Left hip: Yes inspection (Patient's hip is slightly swollen, there is no drainage or erythema.), Yes palpation (Hip is only minimally tender to palpation.), Yes ROM (Not evaluated as the patient is resting in bed.) and Yes neurovascular exam (Intact distal to the surgical site.) Neuro: COMMON NORMALS: patient oriented x3 SENSORIUM/ORIENTATION: Yes alert Psych: COMMON NORMALS: mental status grossly normal APPEARANCE: Yes grossly normal ATTITUDE: Yes calm and Yes engaged ATTENTION/CONCENTRATION: Yes attention grossly intact Skin: COMMON NORMALS: no rashes or lesions noted GENERAL SKIN EXAM: no rashes or lesions noted Urinary Catheter Management^: F: Cath Placed During This Visit: yes Reason for Continuing Indwelling Catheter: Perioperative Use in Selected Surgeries Urinary Catheter Date of Insertion: 04/07/20 Urinary Catheter Time of Insertion: 08:55 Data : 04/08/20 04:06 04/08/20 04:06 A&P Assessment and plan (1) History of total right hip arthroplasty: The patient is doing well following his left total hip arthroplasty. He has been working with physical therapy. Currently, he denies dizziness. His H&H did drop and we will keep him in the hospital 1 more night to be able to check his H&H in the morning. Given his significant cardiac history and risk for perioperative morbidity and mortality, we will maintain him in the hospital to assure that no complications develop for at least 1 more day. I have discussed the patient with the hospitalist service, and they are in agreement. Status: Acute (2) Primary osteoarthritis of left hip: Status: Acute Attestations Medical Necessity Statement*: Patient will require an additional midnight for further evaluation of H&H and cardiac stability. Coding Level of Care Code Acute Printed Forms Proofreader for Cipriano Adams Diagnoses History of total right hip arthroplasty Z96.641 Primary osteoarthritis of left hip M16.12
--- NOTE | 2020-04-08 13:52 | PC.CHAP ---
Pastoral Care Encounter/Spiritual Assessment Type of Contact [] Declined station inspector visit [] Patient/Family/Request visit [] Outpatient visit [] Follow-up visit [] Physician referral [] Code/Alert [X] Routine visit [] Staff referral [] Actively dying [] Patient sleeping [] Family support [] [] Out of room [] Palliative care [] [] Receiving care in room [] Pre-surgical visit [] Trauma [] Long length of stay [] ICU visit [] Other: Relational/Emotional Strength [] Patient feels connected with others/family/visitors/staff [] Distress [] Loneliness/isolation [] Abandonment Spirituality of Patient [] Person of Pema [] Attends Anglican of their Pema [] Believes in Prayer [] Reads Bible or Uatsdin materials [] There are Spiritual issues to be addressed Structural Technician Interventions [] Prayer [] Active listening [] Non-anxious presence [] Spiritual/emotional support [] Crisis/trauma care [] Spiritual counseling [] Bereavement support [] Provided bereavement packet [] Provided Bible/devotional materials [] Provided toy/stuffed animal, coloring book to patient or family member [] Provided Communion [] Anointing/[place] [] Salvation [] Completed spiritual assessment [] Other: Impact on Illness or Injury [] Angry [] Fearful [] Anxious [] Often cries [] Exhaustion [] Unable to work [] Unable to attend samaritan [] Unable to walk/stand [] Unable to read [] Unable to drive [] Unable to eat/drink [] Unable to sleep [] Unable to be with family [] Patient intubated [] Other: Summary Time spent with patient
--- NOTE | 2020-04-08 16:08 | PC.RESP ---
SMOKING CESSATION INFORMATION SENT TO PATIENT.
[2020-04-08] MEDS: acetaminophen 500 mg Tablet 1000 MG PO (17:35)
[2020-04-08] MEDS: oxyCODONE 5 mg IR Tab/Cap PO (20:12)
[2020-04-09] VITALS (9 sets, daily range): BP systolic 111–134; BP diastolic 58–70; PULSE 61–74; RESP 14–20; TEMP 36.4–37; O2SAT 90–97
[2020-04-09 04:53] LABS: Basophils # 0.1 10^3/uL (0.0-0.1); Basophils % 0.6 %; Eosinophils # 0.1 10^3/uL (0.0-0.8); Eosinophils % 1.1 %; Hematocrit 27.9 % (42.0-52.0); Lymphocytes # 2.1 10^3/uL (0.8-4.8); Lymphocytes % 21.3 %; Mean Corpuscular HGB Conc 32.3 g/dL (30.0-36.0); Mean Corpuscular Hemoglobin 31.7 pg (28.0-34.0); Mean Corpuscular Volume 98.2 fL (80-94); Mean Platelet Volume 10.8 fL (7.4-10.4); Monocytes # 1.1 10^3/uL (0.2-0.9); Neutrophils % 65.3 %; Nucleated Red Blood Cells % 0 %; Platelet Count 151 10^3/cmm (130-400); Red Blood Count 2.84 10^6/uL (4.1-5.3); Red Cell Distribution Width 13.7 % (12.1-15.1); White Blood Count 9.8 10^3/uL (4.0-10.0)
[2020-04-09] MEDS: metoprolol tartrate 25 mg Tablet 12.5 MG PO (05:33)
[2020-04-09] MEDS: calcium carbonate 500 mg Chew Tablet 1000 MG PO (08:05)
[2020-04-09] MEDS: atorvastatin 40 mg Tablet PO (08:05)
[2020-04-09] MEDS: chlorhexidine gluconate 0.12% Btl 473 mL 30 ML MUCOUS MEM ×2 (08:05→13:50)
[2020-04-09] MEDS: lisinopril 10 mg Tablet PO (08:06)
[2020-04-09] MEDS: sennosides-docusate Tablet 2 TAB PO (08:06)
[2020-04-09] MEDS: aspirin 325 mg Tablet PO (08:06)
[2020-04-09] MEDS: iron polysaccharide complex 150 mg Capsule PO (08:06)
[2020-04-09] MEDS: sertraline 50 mg Tablet PO (08:06)
[2020-04-09] MEDS: cholecalciferol (vitamin D3) 1,000 unit Tablet 1000 UNIT PO (08:06)
[2020-04-09] MEDS: multivitamin therapeutic Tablet 1 TAB PO (08:06)
[2020-04-09] MEDS: budesonide 0.5 mg/2 mL Neb 0.25 MG INHALATION (08:35)
[2020-04-09] MEDS: ipratropium-albuterol 3 mL Neb INHALATION (08:38)
[2020-04-09] MEDS: mupirocin oint 22 gm 1 APPLIC NASAL (10:05)
[2020-04-09] MEDS: acetaminophen 500 mg Tablet 1000 MG PO (10:05)
--- NOTE | 2020-04-09 10:10 | PM.PN ---
Subjective Subjective: Interval history: Patient awake sitting up in chair at time of exam this morning. He reported that pain was well controlled with medication, denied any chest pain or shortness of breath. Physical therapy in the room with patient and reported that patient did well with ambulation this morning, no lightheadedness or dizziness. Discussed with patient and strongly encouraged him to stop smoking, discussed with him about nicotine patches and he agreed, prescription sent for nicotine patches on discharge. Discussed with patient to continue with home oxygen 2 to 3L by nasal cannula that he uses at baseline Medications: Reviewed: Yes Vitals/I&O/Wt Last Vital Signs Temp 98.4 F 04/09/20 08:00 Pulse 74 04/09/20 08:45 Resp 20 H 04/09/20 08:39 BP 111/62 04/09/20 08:00 Pulse Ox 96 04/09/20 08:39 04/08/20 04/09/20 04/09/20 22:59 06:59 14:59 Intake Total 1300 / 2140 120 / 2260 480 / 480 Output Total 900 / 1200 300 / 1500 650 / 650 Balance 400 / 940 -180 / 760 -170 / -170 Physical Exam Const: COMMON NORMALS: patient oriented x3 and alert GENERAL APPEARANCE: cooperative ORIENTATION/CONSCIOUSNESS: Yes awake, Yes oriented to person, Yes oriented to place and Yes oriented to time HENMT: COMMON NORMALS: normocephalic and atraumatic HEAD & SCALP: normocephalic and atraumatic Eye: COMMON NORMALS: Equal, round and reactive pupils present PUPIL: Yes Equal, round and reactive pupils present Neck/C-Spine: COMMON NORMALS: supple GENERAL: Yes normal visual inspection Resp: COMMON NORMALS: normal respiratory effort and clear to auscultation bilaterally EFFORT & INSPECTION: Yes able to speak in complete sentences AUSCULTATION: clear to auscultation bilaterally and no rhonchi OTHER: Respirations even and unlabored, lungs clear to auscultation without wheezing or rhonchi, prolonged expiratory phase secondary to COPD Cardio: COMMON NORMALS: regular rate, regular rhythm and No murmurs present (Cardio) RATE: regular rate RHYTHM: regular rhythm GI: COMMON NORMALS: Soft to palpation and non-tender INSPECTION: No abdominal distension AUSCULTATION: Yes normoactive bowel sounds PALPATION: Yes Soft to palpation Extremity: COMMON NORMALS: no calf tenderness NARRATIVE EXTREMITY EXAM: Postoperative dressing in place in the left hip Neuro: COMMON NORMALS: patient oriented x3, CN's II-XII intact bilaterally, moves all extremities and no focal motor deficits SENSORIUM/ORIENTATION: Yes alert, Yes oriented to person, Yes oriented to place and Yes oriented to time SPEECH: speech normal Psych: COMMON NORMALS: mental status grossly normal and cooperative Skin: COMMON NORMALS: no rashes or lesions noted GENERAL SKIN EXAM: no rashes or lesions noted Urinary Catheter Management^: F: Cath Placed During This Visit: yes Reason for Continuing Indwelling Catheter: Perioperative Use in Selected Surgeries Urinary Catheter Date of Insertion: 04/07/20 Urinary Catheter Time of Insertion: 08:55 Data : 04/09/20 04:42 04/08/20 04:06 A&P Assessment and plan (1) Atrial fibrillation: Continue on metoprolol 12.5 mg twice daily Aspirin 325 mg daily Patient is not on anticoagulation, previously had been taken off of anticoagulation. DVT prophylaxis per orthopedic surgery Status: Acute Qualifiers: Atrial fibrillation type: paroxysmal Qualified Code(s): I48.0 - Paroxysmal atrial fibrillation (2) Bilateral carotid artery stenosis: Continue aspirin and atorvastatin Status: Acute (3) Hyperlipidemia: Continue atorvastatin 40 mg daily Status: Acute Qualifiers: Hyperlipidemia type: mixed hyperlipidemia Qualified Code(s): E78.2 - Mixed hyperlipidemia (4) Hypertension: Continue lisinopril 10 mg, metoprolol 12.5 mg twice daily Status: Acute Qualifiers: Hypertension type: essential hypertension Qualified Code(s): I10 - Essential (primary) hypertension (5) Aortic valve stenosis: Mild aortic valve stenosis, continue close outpatient follow-up Status: Acute Qualifiers: Cardiac valve disease etiology: nonrheumatic Qualified Code(s): I35.0 - Nonrheumatic aortic (valve) stenosis (6) Atherosclerosis of coronary artery of [place] heart with stable angina pectoris: Status: Acute Qualifiers: Coronary Disease-Associated Artery/Lesion type: [place] artery Qualified Code(s): I25.118 - Atherosclerotic heart disease of [place] coronary artery with other forms of angina pectoris (7) Primary osteoarthritis of left hip: Status post total hip arthroplasty performed by Dr. Duarte on 04/07/2020 Status: Acute Additional A&P Information Chronic oxygen dependence of 2 L of oxygen by nasal cannula at baseline, 3 L at night Obstructive sleep apnea: Continue home CPAP Attestations Medical Necessity Statement*: Plan for discharge to home with home health today Coding Level of Care Code Acute Real Estate Sales Agent for Cipriano Fwd Diagnoses Atrial fibrillation I48.0 Atrial fibrillation type: paroxysmal Bilateral carotid artery stenosis I65.23 Hyperlipidemia E78.2 Hyperlipidemia type: mixed hyperlipidemia Hypertension I10 Hypertension type: essential hypertension Aortic valve stenosis I35.0 Cardiac valve disease etiology: nonrheumatic Atherosclerosis of coronary artery of [place] heart with stable angina pectoris I25.118 Coronary Disease-Associated Artery/Lesion type: [place] artery Primary osteoarthritis of left hip M16.12
--- NOTE | 2020-04-09 12:50 | PM.DCS ---
Discharge Providers Date of Admission: 04/07/20 06:26 Date of Discharge: April 09, 2020 Attending Provider at Admission: Felicia Duarte MD Attending Provider at Discharge: Felicia Duarte MD Primary Care Provider: Musa Sharifno Diagnoses at Discharge Discharge Diagnosis (1) Primary osteoarthritis of left hip: Status: Acute (2) Atrial fibrillation: Status: Acute Qualifiers: Atrial fibrillation type: paroxysmal Qualified Code(s): I48.0 - Paroxysmal atrial fibrillation (3) Bilateral carotid artery stenosis: Status: Acute (4) Hyperlipidemia: Status: Acute Qualifiers: Hyperlipidemia type: mixed hyperlipidemia Qualified Code(s): E78.2 - Mixed hyperlipidemia (5) Hypertension: Status: Acute Qualifiers: Hypertension type: essential hypertension Qualified Code(s): I10 - Essential (primary) hypertension (6) Aortic valve stenosis: Status: Acute Qualifiers: Cardiac valve disease etiology: nonrheumatic Qualified Code(s): I35.0 - Nonrheumatic aortic (valve) stenosis (7) Atherosclerosis of coronary artery of [place] heart with stable angina pectoris: Status: Acute Qualifiers: Coronary Disease-Associated Artery/Lesion type: [place] artery Qualified Code(s): I25.118 - Atherosclerotic heart disease of [place] coronary artery with other forms of angina pectoris Reason for Visit Reason for Visit: Brief History: This 75-year-old gentleman was admitted today with complaints of severe left hip pain secondary to degenerative osteoarthritis. Remotely, he underwent right total hip arthroplasty, and following that procedure, he remained approximately 7 to 10 days in the hospital. Preoperatively, I did notify the hospitalist team of the patient's admission and my request that they help to follow the patient postoperatively. He was made a mandatory inpatient secondary to his significant cardiac history. He did have cardiac clearance preoperatively. Hospital Course Discharge Summary: Patient was admitted as a mandatory inpatient for the following procedure: Left total hip arthroplasty utilizing the following implants: The [place] Accolade II total hip system with a size 6 x 127 degree neck angle hip stem, a Trident II Tritanium solid back acetabular shell size 52 with an E alpha code, an MDM liner size 42 mm inner diameter with an E alpha code, and MDM insert size 28 mm inner diameter by 42E to match the MDM liner, and a Biolox ceramic femoral head size 28 mm x +0 mm offset. Postoperatively, he was discharged home on the second postoperative day. Physical Exam Const: COMMON NORMALS: no acute distress, patient oriented x3 and alert GENERAL APPEARANCE: cooperative and comfortable ORIENTATION/CONSCIOUSNESS: Yes awake HENMT: COMMON NORMALS: normocephalic and atraumatic HEAD & SCALP: normocephalic and atraumatic Eye: GENERAL EYE: appearance normal, both eyes and all related structures Chest: COMMONS NORMALS: normal inspection of the chest Resp: COMMON NORMALS: normal respiratory effort EFFORT & INSPECTION: Yes able to speak in complete sentences and Yes symmetric chest movement Extremity: RIGHT LOWER EXTREMITY: Yes hip joint Right hip: Yes inspection (There is some ecchymosis in the right hip, but it is soft and nontender to palpation. There is no evidence of drainage from the hip wound.), Yes palpation (There is some swelling, but no tenderness is previously noted.), Yes ROM (Not evaluated.) and Yes neurovascular exam (Intact distal to the surgical site. There is no evidence of DVT.) Neuro: COMMON NORMALS: patient oriented x3 SENSORIUM/ORIENTATION: Yes alert Psych: COMMON NORMALS: mental status grossly normal APPEARANCE: Yes grossly normal ATTITUDE: Yes calm and Yes engaged ATTENTION/CONCENTRATION: Yes attention grossly intact Skin: COMMON NORMALS: no rashes or lesions noted GENERAL SKIN EXAM: no rashes or lesions noted Urinary Catheter Management^: F: Cath Placed During This Visit: yes Reason for Continuing Indwelling Catheter: Perioperative Use in Selected Surgeries Urinary Catheter Date of Insertion: 04/07/20 Urinary Catheter Time of Insertion: 08:55 Discharge Data Data Completed and Pending: Completed Studies During Hospitalization Category Date Time Status XR chest 2V* 7104 6 Routine Exams 04/03/20 15:05 Completed XR pelvis 1-2V* 7 2170 Routine Exams 04/07/20 11:54 Completed Pending at discharge Category Date Time Status Complete Blood Co unt w/Auto AM LABS Lab 04/10/20 04:00 Ordered PRBC [Leukocyte R educed RBC] Stat Lab 04/07/20 09:45 Results Type and Screen S tat Lab 04/07/20 09:45 Results Labs from last 24 hours 04/09/20 04:42 WBC 9.8 RBC 2.84 L Hgb 9.0 L Hct 27.9 L MCV 98.2 H MCH 31.7 MCHC 32.3 RDW 13.7 Plt Count 151 MPV 10.8 H Neut % (Auto) 65.3 Lymph % (Auto) 21.3 [place] % (Auto) 11.0 Eos % (Auto) 1.1 Baso % (Auto) 0.6 Neut # (Auto) 6.40 Lymph # (Auto) 2.1 [place] # (Auto) 1.1 H Eos # (Auto) 0.1 Baso # (Auto) 0.1 Nucleated RBC % (a uto) 0 Nucleated RBCs # 0.0 Vitals: Last Vital Signs Temp 98.4 F 04/09/20 11:19 Pulse 61 04/09/20 11:19 Resp 17 04/09/20 11:19 BP 120/70 04/09/20 11:19 Pulse Ox 94 04/09/20 11:19 Discharge Plan Discharge Patient Disposition: Home Health Service Condition: Stable Prescriptions: New nicotine 21 mg/24 hr patch 24 hour 1 patch TRANSDERMA DAILY 7 Days Qty: 7 RF: 0 oxycodone 5 mg Tablet 1 - 2 mg PO Q6H PRN (Reason: Moderate Pain) Qty: 30 RF: 0 celecoxib 200 mg Capsule 200 mg PO Q12H Qty: 60 RF: 0 Continued atorvastatin 40 mg tablet 40 mg PO DAILY RF: 0 nitroglycerin [Nitrostat] 0.4 mg tablet, sublingual 0.4 mg SUBLINGUAL Q5M PRN (Reason: Chest Pain) RF: 0 tizanidine 2 mg tablet 2 mg PO Q8H PRN (Reason: Pain) RF: 0 metoprolol tartrate 25 mg tablet 12.5 mg PO BID RF: 0 aspirin 325 mg tablet 325 mg PO DAILY RF: 0 sertraline 50 mg tablet 50 mg PO DAILY RF: 0 lisinopril 10 mg tablet 10 mg PO DAILY Qty: 90 RF: 3 multivitamin Tablet 1 tab PO DAILY RF: 0 Tylenol Arthritis Pain 650 mg Tablet Extended Release 650 mg PO Q8H PRN (Reason: Pain) RF: 0 albuterol sulfate 90 mcg/actuation HFA aerosol inhaler 90 mcg INHALATION BID PRN (Reason: Shortness Of Breath) RF: 0 budesonide 0.5 mg/2 mL Suspension For Nebulization 0.25 mg INHALATION BID RF: 0 ipratropium-albuterol 0.5 mg-3 mg(2.5 mg base)/3 mL Solution For Nebulization 3 ml INHALATION BID RF: 0 Brovana 15 mcg/2 mL Solution For Nebulization 2 ml INHALATION BID RF: 0 Discharge Orders: Discharge Order (Routine); Ordered 04/09/20 Ordered By: Felicia Duarte Referrals: [facility] [Outside] (Called to inform of discharge home. ) Felicia Duarte MD [Physician] - 04/29/20 11:45 am (You have an appointment on April 29 at 11:45) Discharge Diet: Advance as tolerated and Usual diet Discharge Activity: Increase activity as tolerated, Use walker/crutches as instructed, As per PT/OT instructions and Oxygen as instructed Patient Instructions: Nicotine (Absorbed through the skin), Oxycodone, Rapid Release (By mouth), Celecoxib (By mouth), Hypertension, Coronary Artery Disease (DC), Atrial Fibrillation (DC), Aortic Stenosis (DC), Osteoarthritis (DC), Revision Total Joint Arthroplasty (DC), Hyperlipidemia (DC) Activity Restrictions/Additional Instructions: Posterior hip precautions, follow-up with me as recommended. Work with physical therapy as directed. Continue with home oxygen 2 to 3 L by nasal cannula as previously prescribed. Strongly encouraged tobacco cessation, nicotine patches ordered for discharge Call your physician or present to the ED for any acute illness or concern Discharge Attestations Time Spent in Discharge Care*: greater than 30 min Specific Discharge Activities: Specific discharge activities: discussing with pcp/other providers, documenting/other paperwork and evaluating patient/reviewing data Quality Metrics Clinical Quality Measures During this hospital stay, did patient experience: None Coding Level of Care Code Acute Hand Cutter Apprentice for g Fwd Exam Comprehensive Diagnoses Primary osteoarthritis of left hip M16.12 Atrial fibrillation I48.0 Atrial fibrillation type: paroxysmal Bilateral carotid artery stenosis I65.23 Hyperlipidemia E78.2 Hyperlipidemia type: mixed hyperlipidemia Hypertension I10 Hypertension type: essential hypertension Aortic valve stenosis I35.0 Cardiac valve disease etiology: nonrheumatic Atherosclerosis of coronary artery of [place] heart with stable angina pectoris I25.118 Coronary Disease-Associated Artery/Lesion type: [place] artery
[2020-04-09] MEDS: oxyCODONE 5 mg IR Tab/Cap PO (13:50)
[2020-04-09] MEDS: CELEcoxib 200 mg Capsule PO (13:50)
== END 2020-04-09 15:30 | disposition home health service (06) | DRG 470 ==
PROVIDERS: Admitting Provider Specialist; PCP Family Medicine; Visit Provider Specialist
PROC: 0SRB0J9 Replacement of Left Hip Joint with Synthetic Substitute, Cemented, Open Approach (ICD-10-PCS; CPT 27130; principal; 2020-04-07 08:00)
DX: M16.12 Unilateral primary osteoarthritis, left hip (principal); I48.0 Paroxysmal atrial fibrillation; E78.2 Mixed hyperlipidemia; I10 Essential (primary) hypertension; I35.0 Nonrheumatic aortic (valve) stenosis; I25.118 Atherosclerotic heart disease of native coronary artery with other forms of angina pectoris; I65.23 Occlusion and stenosis of bilateral carotid arteries; Z79.82 Long term (current) use of aspirin; Z95.5 Presence of coronary angioplasty implant and graft; I25.2 Old myocardial infarction; I73.9 Peripheral vascular disease, unspecified; E66.01 Morbid (severe) obesity due to excess calories; Z68.36 Body mass index [BMI] 36.0-36.9, adult; Z96.641 Presence of right artificial hip joint; I25.5 Ischemic cardiomyopathy; F17.210 Nicotine dependence, cigarettes, uncomplicated
CPT/HCPCS: 12345; 36415; 51702; 71046; 72170; 80048; 80053; 85014; 85018; 85025; 86850; 86900; 86920; 87635; 93005; 93010; 94640; 96365; 97110; 97116; 97161; 97166; 97530; C1776; J0131; J0330; J0690; J1100; J2370; J2405; J2704; J2710; J3010; J3370; J3490; J3535; J7030; J7050; J7626

== ENCOUNTER → 2020-04-29 12:08 | Outpatient (BNVA) | payer MEDICARE, MEDICAID, SELFPAY | PROVIDERS: PCP Family Medicine; Visit Provider Specialist | DX: Z48.89 Encounter for other specified surgical aftercare (principal); Z96.642 Presence of left artificial hip joint | CPT/HCPCS: 73502 ==

== ENCOUNTER 2020-05-05 08:19 | Outpatient (RCR) | payer MEDICARE, MEDICAID, SELFPAY | END 2020-05-20 23:59 | disposition home or self-care (01) | LOC: SPT 08:19 | PROVIDERS: PCP Family Medicine; Referring Provider Specialist; Visit Provider Specialist | DX: Z47.1 Aftercare following joint replacement surgery (principal); Z96.642 Presence of left artificial hip joint | CPT/HCPCS: 97110; 97161 ==

== ENCOUNTER 2020-05-21 06:00 | Outpatient (RCR) | payer MEDICARE, MEDICAID, SELFPAY | END 2020-06-20 23:59 | disposition home or self-care (01) | LOC: SPT 06:00 | PROVIDERS: PCP Family Medicine; Referring Provider Specialist; Visit Provider Specialist | DX: Z47.1 Aftercare following joint replacement surgery (principal); Z96.642 Presence of left artificial hip joint | CPT/HCPCS: 97110; 97112; 97116 ==

== ENCOUNTER → 2020-07-02 08:18 | Outpatient (BNVA) | payer MEDICARE, MEDICAID, SELFPAY | PROVIDERS: PCP Family Medicine; Visit Provider Specialist | DX: M16.12 Unilateral primary osteoarthritis, left hip (principal) | CPT/HCPCS: 73502 ==

== ENCOUNTER → 2020-12-23 09:12 | Outpatient (BNVA) | payer MEDICARE, MEDICAID, SELFPAY | PROVIDERS: PCP Family Medicine; Visit Provider Specialist | DX: Z96.642 Presence of left artificial hip joint (principal); M25.552 Pain in left hip; M25.551 Pain in right hip | CPT/HCPCS: 73522 ==

== ENCOUNTER 2021-02-02 08:58 | Outpatient (CLI) | payer MEDICARE, MEDICAID, SELFPAY ==
[2021-02-02 09:12] VITALS: BMI 34.8
--- NOTE | 2021-02-02 09:15 | ECG_ITS ---
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 Interpretive Statements NAME OF STUDY: LEXISCAN SESTAMIBI STRESS TEST INDICATION: Chest Pain PROCEDURE: At the baseline, the blood pressure was 120/60 mmHg with a heart rate of 66 bpm. The electrocardiogram showed normal sinus rhythm, normal axis. Intraventricular conduction delay. Nonspecific ST-T wave changes. The Lexiscan was infused over a period of 20 seconds. A total of 0.4 milligrams of Lexiscan was infused. The stress phase was continued for a total of 5 minutes. Heart rate at the end of the stress phase was 70 beats per with a blood pressure of 91/57 mmHg. The EKG at the peak infusion revealed sinus rhythm with no significant ST-T wave changes. Study was terminated due to protocol completion. Patient developed intraprocedural shortness of breath which resolved by the time of discharge. Sestamibi was injected 20 seconds after the Lexiscan infusion. Blood pressure at the end of the recovery phase was 116/57 mmHg with a heart rate of 68 beats per minute. CONCLUSION: 1. No significant EKG changes with the LexiScan infusion. 2. No LexiScan induced chest pain or cardiac arrhythmia. 3. Normal blood pressure and heart rate response. 4. Sestamibi/sestamibi perfusion scan pending; see separate report. Electronically Signed On 02-08-2021 8:40:20 CDT by Louann Gonzales M.D. [id number]
--- NOTE | 2021-02-02 09:16 | NMCV_ITS ---
NM brad perf SPECT r/s* [id number] Ted Borden Age: 75 Gender: M : 1945 Exam Date: 02/02/2021 10:08 Ordering Phys: Jose Soler PA-C XX Technologist: DEJA Raygoza Exam Location: [facility] Indications: CHEST PAIN STRESS TEST [facility] IMAGE PROTOCOL Rest/Stress 1 Lexiscan Day Radiopharmaceutical Dose (mCi) Administration Site Administered by Rest: Tc-99m 10.4 IV DEJA De La Torre Sestamibi Stress:Tc-99m 32.4 IV DEJA De La Torre Sestamibi Rest: 02-Feb-2021 60 Discovery 630 Stress: 02-Feb-2021 30 Discovery 630 0.4mg Lexiscan. Supine position only as patient was unable to lay prone. SPECT RESULTS Technical Quality: Good Raw Data Analysis: Soft tissue attenuation Image Corrections: No attenuation or motion correction applied Summed Stress Score: 15 Summed Rest Score: 19 Summed Difference Score: 0 PERFUSION FINDINGS Large size perfusion abnormality of basal to apical inferior, basal to mid inferolateral, apical lateral, apical septal and apical dwyer on rest images with no significant reversibility on stress images. FUNCTIONAL RESULTS (calculated via Gated SPECT) Stress Image LV EF (%): 50 Stress EDV (mL):179 TID: 0.86 Stress ESV (mL):90 FUNCTIONAL FINDINGS: The left ventricle is normal in size. Transient Ischemia Dilatation of 0.86. The left ventricular ejection fraction is mildly reduced with a value of 50%. There is possible mild hypokinesis of basal to mid inferolateral and inferior dwyer. Increased end-diastolic and end-systolic volume. IMPRESSIONS 1. Large size predominantly fixed perfusion abnormality of basal to apical inferior, basal to mid inferolateral, apical lateral, apical septal and apical dwyer. 2. This may be suggestive of old myocardial infarction in right coronary artery/circumflex artery territory or attenuation artifact. 3. The left ventricular ejection fraction is mildly reduced with a value of 50%. 4. There is possible mild hypokinesis of basal to mid inferolateral and inferior dwyer. 5. No coronary ischemia based on the study. 6. No significant EKG changes with Lexiscan infusion. Please refer to separate report for details. Louann Gonzales MD (Electronically Signed) Final Date: 08 February 2021 08:46 S
[2021-02-02] MEDS: regadenoson 0.4 Mg/5 ml Syringe IVP (11:25)
[2021-02-02 11:51] VITALS: BP 124/64; PULSE 83
== END 2021-02-02 08:59 | disposition home or self-care (01) ==
LOC: CDL 09:00
PROVIDERS: PCP Family Medicine; Visit Provider Physician Assistant Medical
DX: R07.9 Chest pain, unspecified (principal)
CPT/HCPCS: 78452; 93017; A9500; J2785

== ENCOUNTER 2021-04-08 10:28 | Outpatient (CLI) | payer MEDICARE, MEDICAID, SELFPAY ==
--- NOTE | 2021-04-08 10:38 | CT_ITS ---
WS: [id number] LDCT LUNG CANCER SCREENING HISTORY: nicotine dependence TECHNIQUE: Axial imaging performed from the apices to 1 cm below the costophrenic angles. Coronal and sagittal reformats are submitted with axial MIP series. All CT scans at [facility] use at least one of these dose optimization techniques: automated exposure control; mA and/or kV adjustment per patient size (includes targeted exams where dose is matched to clinical indication); or iterativ e reconstruction. DLP: 54.19 mGy.cm DIvol: 1.58 mGy COMPARISON: None available. Diagnostic quality: Satisfactory Lung Nodules: No pulmonary nodules or endobronchial lesions are identified. Lungs: No abnormality. Heart: Mild coronary artery calcifications. Other findings: Minimal atherosclerosis thoracic aorta. Hepatic steatosis. CT/CT lung screening 16572 IMPRESSION: LUNG-RADS: 1-Negative FOLLOW UP: 12 Month: Continue annual screening with LDCT OTHER FINDINGS (S MODIFIER): None.
== END 2021-04-08 10:29 | disposition home or self-care (01) ==
LOC: RAD 10:35
PROVIDERS: PCP Family Medicine; Visit Provider Internal Medicine Pulmonary Disease
DX: Z12.2 Encounter for screening for malignant neoplasm of respiratory organs (principal); F17.210 Nicotine dependence, cigarettes, uncomplicated; K76.0 Fatty (change of) liver, not elsewhere classified
CPT/HCPCS: 71271

== ENCOUNTER 2021-09-02 12:34 | Inpatient (IN) | payer MEDICARE, MEDICAID, SELFPAY ==
[2021-09-02] VITALS (18 sets, daily range): BP systolic 92–139; BP diastolic 44–64; PULSE 53–113; RESP 14–22; TEMP 36.4–37.1; O2SAT 92–100; BMI 37.6
--- NOTE | 2021-09-02 12:36 | ECG_ITS ---
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1945 Requested By: Monica Robins Order Number: [id number] Reading MD: RONY ROMERO Measurements Intervals Shirley Rate: 54 P: 53 PA: 177 QRS: -27 QRSD: 109 T: 150 QT: 438 QTc: 418 Interpretive Statements SINUS BRADYCARDIA WITH OCCASIONAL SUPRAVENTRICULAR PREMATURE COMPLEXES BORDERLINE LEFT AXIS DEVIATION [QRS AXIS < -20] POSSIBLE RIGHT VENTRICULAR CONDUCTION DELAY [RSR (QR) IN V1/V2] ST DEVIATION AND MARKED T-WAVE ABNORMALITY, CONSIDER ANTEROLATERAL ISCHEMIA [-0.5+ mV T-WAVE IN I/aVL/V3-V6] Compared to ECG 04/03/2020 15:15:17 T-wave abnormality now present Possible ischemia now present Sinus rhythm no longer present Intraventricular conduction delay no longer present Electronically Signed On 09-03-2021 18:16:49 ASSET ADMINISTRATOR by RONY ROMERO [id number]
--- NOTE | 2021-09-02 12:52 | ED_ITS ---
HPI - General Adult General: Chief complaint: Weakness Stated complaint: WEAKNESS, LOW H&H Time Seen by Provider: 09/02/21 12:35 History of Present Illness: HPI narrative: 76-year-old male with history of COPD on 3 L oxygen, , afib, HTN, HLD presented emergency room with complaints of dyspnea and routine blood work concerns for anemia. EMS, patient had routine blood work that was done which showed hemoglobin 5.5 days ago. Patient has any melena or hematochezia, excessive aspirin or NSAID use, or any anticoagulation. Denies any active chest pain. Patient reports wheezing and has used a dose of albuterol without improvement symptoms. Patient received 1 round of treatment in route. Patient denies any fever/chills, cough, exertional chest pain, abdominal complaints of nausea/vomiting, urine or urinary complaints Onset: unknown anemia, dyspnea x 2 days Duration:ongoing Location:home Severity:moderate Associated symptoms: Reports dyspnea and malaise; Deny chest pain, nausea, rash, palpitations or vomiting Review of Systems Const: Reports: fatigue, malaise and other; Denies: fever(s) or chills Eyes: Denies: change in vision ENMT: Denies: mouth pain Card: Denies: chest pain or palpitations Resp: Reports: dyspnea; Denies: non-productive cough GI: Denies: abdominal pain, nausea, vomiting or diarrhea : Denies: dysuria Musc: Denies: extremity pain Skin/Breast: Denies: rash or new lesions Neuro: Denies: weakness in extremities Psych: Reports: other (Normal mood) Jez/Lymph: Denies: easy bruising PFSH ED PFSH: Medical History Aortic valve stenosis Atherosclerosis of coronary artery of [place] heart with stable angina pectoris Atrial fibrillation Bilateral carotid artery stenosis Hyperlipidemia Hypertension Ischemic cardiomyopathy Surgical History History of total left hip arthroplasty History of total right hip arthroplasty S/P hip replacement Right Family History Father CAD (coronary artery disease) Lung disease Denies family history of Diabetes Clotting disorder Dementia Chronic kidney disease (CKD) Suicide Anesthesia complication Bleeding disorder Cancer Stroke Social History Smoking and tobacco status: current some day smoker cigarettes Packs smoked per day: 0.5 Years cigarettes smoked: 58 [ Other cigarette details: 1-2ppd ] Quit status (tobacco): considering quitting Second hand smoke exposure: No Smoking risk assessment/counseling performed?: Yes Alcohol intake: never Lives independently: Yes Household members: spouse Marital status: service: No Current occupational status: retired Pets and animals: Yes History of recent travel: No Current gender identity: Male Physical Exam Const: COMMON NORMALS: alert HENMT: COMMON NORMALS: atraumatic HEAD & SCALP: atraumatic MOUTH: moist mucous membranes not abnormal Eye: COMMON NORMALS: EOMs intact bilaterally and conjunctivae normal CONJUNCTIVA: Yes conjunctivae normal Neck/C-Spine: COMMON NORMALS: full ROM and supple Resp: COMMON NORMALS: normal respiratory effort AUSCULTATION: other (wheezing b/l) Cardio: COMMON NORMALS: regular rate RATE: regular rate GI: COMMON NORMALS: Soft to palpation and non-tender PALPATION: Yes Soft to palpation OTHER: RECTAL: hemoocult negative brown stool Extremity: COMMON NORMALS: full ROM Neuro: SENSORIUM/ORIENTATION: Yes alert MOTOR EXAM: No Abnormal motor strength present and Other motor observations present (no focal motor deficits) Psych: COMMON NORMALS: speech normal SPEECH: Yes normal speech MOOD & AFFECT: Yes euthymic mood Course Vital Signs: Vital signs: Vital Signs Temperature 98.7 F 09/02/21 14:59 Pulse Rate 113 H 09/02/21 14:59 Respiratory Rate 16 09/02/21 14:59 Blood Pressure 119/52 09/02/21 14:59 Pulse Oximetry 96 09/02/21 14:59 MDM - General Adult MDM Narrative: Medical decision making narrative: 76-year-old male with hx COPD on 3 L oxygen, , afib, HTN, HLD emergency room with concerns for anemia and dyspnea. Recent fall patient is noted to be satting in 95% on 3 L of oxygen. Patient is noted to be wheezing bilaterally without any increasing respiratory effort. Patient recevied DuoNeb in the emergency room with significant improvement in breathing. Patient is noted to have a hemoglobin of 5.3 today will need transfusion. Hemoccult negative. EKG showing regular sinus rhythm at HT of [54]. Left axis, Q in V1 with 1mm TIBURCIO, STD in V3-V6 similar to prior EKG from 04/03/2021. Normal SC, QTC. QRS mildly enlarged at 135. +occasional PVCs. Patient was also found to have troponin of 247 concern for possible NSTEMI. EKG does not meet STEMI criteira. S/p ASA. At 3:07pm, case was discussed with Dr. Moore who recommended not starting patient on heparin drip given the fact that patient has a low hemoglobin. He recommended reassessment after transfusion and serial troponins for now. Disposition: admission for transfusion and observation Lab Data: Labs: Lab Results 09/02/21 09/02/21 09/02/21 13:33 13:33 13:33 WBC 8.1 10^3/uL 10^3/ uL (4.0-10.0) RBC 2.50 10^6/uL L 10 ^6/uL (4.1-5.3) Hgb 5.3 g/dL L* g/dL (11.7-16.6) Hct 18.5 % L* % (42.0-52.0) MCV 74.0 fl L fl (80-94) MCH 21.2 pg L pg (28.0-34.0) MCHC 28.6 g/dL L g/dL (30.0-36.0) RDW 17.2 % H % (12.1-15.1) Plt Count 254 10^3/cmm 10^3 /cmm (130-400) MPV 10.5 fL H fL (7.4-10.4) Neut % (Auto) 79.0 % % Lymph % (Auto) 11.5 % % [place] % (Auto) 7.4 % % Eos % (Auto) 0.1 % % Baso % (Auto) 0.5 % % Neut # (Auto) 6.39 10^3/uL 10^3 /uL (1.8-7.7) Lymph # (Auto) 0.9 10^3/uL 10^3/ uL (0.8-4.8) [place] # (Auto) 0.6 10^3/uL 10^3/ uL (0.2-0.9) Eos # (Auto) 0.0 10^3/uL 10^3/ uL (0.0-0.8) Baso # (Auto) 0.0 10^3/uL 10^3/ uL (0.0-0.1) Nucleated RBC % (a uto) 2.2 % % Nucleated RBCs # 0.2 /100WBC /100W BC PT 16.60 SECONDS H S ECONDS (12.1-14.9) INR 1.31 H (0.8-1.2) APTT 33.5 SECONDS SECO NDS (23.9-36.7) Specimen Type Sample Site ABG pH ABG pCO2 ABG pO2 ABG HCO3 ABG Base Excess Ted Test Hematocrit O2 Delivery Device O2 Liters/Min FiO2 Construction Rigger ID Sodium Potassium Chloride Carbon Dioxide Anion Gap BUN Creatinine GFR Calculation Glucose Calculated Osmolal ity Calcium Troponin T Baselin e NT-Pro-B Natriuret Pep Blood Type A Negative Rho(D) Type Negative Antibody Screen Negative Crossmatch See Detail 09/02/21 09/02/21 09/02/21 13:33 13:33 13:53 WBC RBC Hgb Hct MCV MCH MCHC RDW Plt Count MPV Neut % (Auto) Lymph % (Auto) [place] % (Auto) Eos % (Auto) Baso % (Auto) Neut # (Auto) Lymph # (Auto) [place] # (Auto) Eos # (Auto) Baso # (Auto) Nucleated RBC % (a uto) Nucleated RBCs # PT INR APTT Specimen Type Arterial Sample Site Radial, right ABG pH 7.39 (7.35-7.45) ABG pCO2 32.0 mmHg L mmHg (35-45) ABG pO2 101.0 mmHg H mmHg (80.0-100.0) ABG HCO3 19.3 mmol/L L mmo l/L (22-26) ABG Base Excess -5.2 mmol/L L mmo l/L (-2.0-2.0) Ted Test Pos Hematocrit 17.4 % L % (42-52) O2 Delivery Device Nc O2 Liters/Min 3.0 % % FiO2 32.0 % % Construction Rigger ID Ed Sodium 126 mmol/L L mmol /L (136-145) Potassium 5.3 mmol/L H mmol /L (3.5-5.1) Chloride 93 mmol/L L mmol/ L (98-107) Carbon Dioxide 17 mmol/L L mmol/ L (22-29) Anion Gap 21.3 H (5-19) BUN 42 mg/dL H mg/dL (8-23) Creatinine 2.2 mg/dL H mg/dL (0.7-1.2) GFR Calculation Not Reportable Glucose 97 mg/dL mg/dL (65-115) Calculated Osmolal ity 272 mOsm/kg L mOs m/kg (285-295) Calcium 8.6 mg/dL mg/dL (8.5-10.5) Troponin T Baselin e 247 ng/L H* ng/L (0-15) NT-Pro-B Natriuret Pep 3387 pg/mL H pg/m L (0-125) Blood Type Rho(D) Type Antibody Screen Crossmatch Imaging Data^: Other Imaging: Radiologist's impression: [address] [id number] ReportSigned Patient: Ted Borden #: [id number]: [id number]#:[id number]/Sex: 76 / MADM Date: 09/02/21Loc: ERRoom/Bed:Attending Dr: Ordering Provider/Ordering MD: Monica Robins MD Date of Service: 09/02/21 Procedure(s): XR chest 1V portable [id number] Accession Number(s): [id number] Report Number: [id number] WS: [id number] XR chest 1V portable [id number] REASON FOR EXAM: dyspnea FINDINGS: Most recent examination is 04/03/2020. The heart is significantly larger than on the previous examination. Calcified granulomatous disease bilaterally. There is subtle increased lung opacity adjacent to the right margin of the hear t. This could be due to decreased inspiratory effort. Moderate degenerative spondylosis in the mid and lower thoracic spine. XR/XR chest 1V portable [id number] IMPRESSION: Cardiomegaly, a new finding. Equivocal findings in the right lower lung. Follow-up chest x-ray recommended as clinically warranted. Dictated By:Roc Mcgregor Jr MDSigned By:Roc Mcgregor Jr MDSigned Date/Time:09/02/21 1328DD/ 1321 Discharge Plan Discharge Patient Disposition: Admitted As Inpatient Clinical Impression: Acute exacerbation of chronic obstructive pulmonary disease, Acute dyspnea, Acute anemia, Non-ST elevation AL (NSTEMI) Condition: Stable Coding Level of Care Code ED Feed Inspection Supervisor for Chg Fwd Exam Comprehensive
--- NOTE | 2021-09-02 12:52 | XR_ITS ---
WS: [id number] XR chest 1V portable [id number] REASON FOR EXAM: dyspnea FINDINGS: Most recent examination is 04/03/2020. The heart is significantly larger than on the previous examination. Calcified granulomatous disease bilaterally. There is subtle increased lung opacity adjacent to the right margin of the heart. This could be due t o decreased inspiratory effort. Moderate degenerative spondylosis in the mid and lower thoracic spine. XR/XR chest 1V portable [id number] IMPRESSION: Cardiomegaly, a new finding. Equivocal findings in the right lower lung. Follow-up chest x-ray recommended a s clinically warranted.
[2021-09-02] MEDS: predniSONE 20 mg Tablet 60 MG PO (13:19)
[2021-09-02 13:47] LABS: Basophils % 0.5 %; Eosinophils % 0.1 %; Lymphocytes # 0.9 10^3/uL (0.8-4.8); Lymphocytes % 11.5 %; Mean Corpuscular HGB Conc 28.6 g/dL (30.0-36.0); Mean Corpuscular Hemoglobin 21.2 pg (28.0-34.0); Mean Platelet Volume 10.5 fL (7.4-10.4); Monocytes # 0.6 10^3/uL (0.2-0.9); Monocytes % 7.4 %; Neutrophils # 6.39 10^3/uL (1.8-7.7); Nucleated Red Blood Cells # 0.2 /100WBC; Nucleated Red Blood Cells % 2.2 %; Platelet Count 254 10^3/cmm (130-400); Red Cell Distribution Width 17.2 % (12.1-15.1); White Blood Count 8.1 10^3/uL (4.0-10.0)
[2021-09-02] MEDS: ipratropium-albuterol 3 mL Neb INHALATION ×3 (13:51)
[2021-09-02 14:00] LABS: INR 1.31 (0.8-1.2); Partial Thromboplastin Time 33.5 SECONDS (23.9-36.7)
[2021-09-02 14:02] LABS: ABG PH Result 7.39 (7.35-7.45); Arterial Blood Gas Hematocrit 17.4 % (42-52); Base Excess ABG -5.2 mmol/L (-2.0-2.0); Blood Gas Allen Test Pos; Blood Gas Sample Type Arterial; HCO3 ABG 19.3 mmol/L (22-26)
[2021-09-02 14:04] LABS: Blood Gas Operator Identificat ED; Blood Gas Sample Site Radial, right; Oxygen Device NC
[2021-09-02 14:08] LABS: Hematocrit 18.5 % (42.0-52.0); Hemoglobin 5.3 g/dL (11.7-16.6)
[2021-09-02 14:20] LABS: Anion Gap 21.3 (5-19); Blood Urea Nitrogen 42 mg/dL (8-23); Calcium 8.6 mg/dL (8.5-10.5); Carbon Dioxide 17 mmol/L (22-29); Chloride 93 mmol/L (98-107); Glucose 97 mg/dL (65-115); NT Pro B Type Natriuretic Pept 3387 pg/mL (0-125); Osmolality Calculated 272 mOsm/kg (285-295); Potassium 5.3 mmol/L (3.5-5.1); Sodium 126 mmol/L (136-145)
[2021-09-02 14:24] LABS: Troponin(5th) Baseline 247 ng/L (0-15)
--- NOTE | 2021-09-02 14:52 | ECG_ITS ---
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1945 Requested By: Monica Robins Order Number: [id number] Reading MD: RONY ROMERO Measurements Intervals [place] Rate: 62 P: [place]: QRS: -10 QRSD: 117 T: 128 QT: 434 QTc: 442 Interpretive Statements SUPRAVENTRICULAR RHYTHM POSSIBLE RIGHT VENTRICULAR CONDUCTION DELAY [RSR (QR) IN V1/V2] ST DEVIATION AND MODERATE T-WAVE ABNORMALITY, CONSIDER LATERAL ISCHEMIA [-0.1+ mV T-WAVE IN I/aVL/V5/V6] Compared to ECG 09/02/2021 13:11:10 Supraventricular rhythm now present Sinus bradycardia no longer present T-wave abnormality still present Possible ischemia still present Electronically Signed On 09-03-2021 18:16:25 BEARING GRINDER by RONY ROMERO [email or web address]/[id number]
[2021-09-02] MEDS: sodium chloride 0.9% 100 mL Bag 50 ML IV ×2 (15:33→18:49)
[2021-09-02] MEDS: aspirin 325 mg Tablet PO (15:35)
[2021-09-02 16:51] LABS: Troponin 5 2HR Delta 1.6 ABS# (0-10)
[2021-09-02 16:54] LABS: Troponin 5 2HR 248.6 ng/L (0-15)
--- NOTE | 2021-09-02 18:19 | P.HP_ITS ---
Providers/Chief Complaint Admitting Physician: Katharina Murray MD Primary Care Provider: Musa Myers Chief Complaint: WEAKNESS, LOW H&H History of Present Illness Ted Borden is a 76 year old male with h/o COPD, CORTEZ, smoking, CAD, atrial fibrillation and type 2 DM who presented to ED with weakness, dyspnea and abnormal labs. Patient had labs drawn that revealed hemoglobin of 5.3 which is new finding for him, previous hemoglobin of record 9.0 on 04/09/20. Patient denies melena or bloody stools . He is not on anticoagulation. He also is noted to have elevated troponin of 247 and BNP of 3387 with CXR findings of cardiomegaly- new from previous. EKG did not reveal acute ischemia. Patient admitted for transfusion, further investigation of anemia and management of NATALIE. Serum creatinine noted to be 2.2 which is elevated compared to previous labs. Review of Systems General: Reports: 10 or more systems reviewed and unremarkable except in HPI and below Narrative: c/o weakness, dyspnea Const: Reports: fatigue and malaise; Denies: fever(s), chills or body aches ENMT: Denies: throat pain, odynophagia or swelling of lips/tongue Card: Reports: orthopnea; Denies: chest pain, palpitations, edema or syncope Resp: Reports: dyspnea and wheezing GI: Denies: abdominal pain, nausea, vomiting, dysphagia, hematochezia or melena Skin/Breast: Denies: rash, pruritus or erythema Neuro: Denies: headache(s), numbness in extremities or weakness in extremities Psych: Denies: anxiety, depression or mood swings Jez/Lymph: Denies: easy bleeding or enlarged lymph nodes Medications/Allergies Home Medications Medication Instructions Recorded Confirmed Last Taken Type aspirin 325 mg tablet 325 mg PO QAM 01/06/20 09/02/21 09/02/21 History atorvastatin 40 mg tablet 40 mg PO QPM 01/06/20 09/02/21 09/01/21 History nitroglycerin 0.4 mg sublingual 0.4 mg SUBLINGUAL Q5M PRN 01/06/20 09/02/21 Unknown History tablet sertraline 50 mg tablet 50 mg PO QPM 01/06/20 09/02/21 09/01/21 History tizanidine 2 mg tablet 2 mg PO BEDTIME 05/09/02/21 09/01/21 History arformoterol [Brovana] 2 ml INHALATION BID 04/03/20 09/02/21 09/02/21 07:30 History budesonide 0.5 mg INHALATION BID 04/03/20 09/02/21 09/02/21 07:30 History multivitamin 1 tab PO QAM 04/03/20 09/02/21 09/02/21 History clopidogrel 75 mg tablet 75 mg PO QAM 04/29/20 09/02/21 09/02/21 History ipratropium bromide 0.02 % 2.5 ml INHALATION BID ml 02/16/21 09/02/21 09/02/21 History solution for inhalation meclizine 25 mg tablet 25 mg PO QPM 02/16/21 09/02/21 Unknown History tiotropium 2.5 mcg-olodaterol 2.5 2 puff INHALATION DAILY #4 g 06/14/21 09/02/21 Unknown Rx mcg/actuation mist for inhalation glipizide 5 mg tablet 5 mg PO QAM tab 08/19/21 09/02/21 09/02/21 History acetaminophen [Tylenol Ex Str 1,000 mg PO Q6H PRN 09/02/21 09/02/21 Unknown History Rapid Release] amlodipine 2.5 mg PO QAM 09/02/21 09/02/21 09/02/21 07:30 History cholecalciferol (vitamin D3) 25 mcg PO QPM 09/02/21 09/02/21 09/01/21 History [Vitamin D3] doxycycline hyclate 100 mg PO BID 09/02/21 09/02/21 09/02/21 History famotidine 40 mg PO QPM 09/02/21 09/02/21 09/01/21 History levalbuterol tartrate 2 puff INHALATION Q6H PRN 09/02/21 09/02/21 Unknown History lisinopril 40 mg PO QPM 09/02/21 09/02/21 09/01/21 History metoprolol tartrate 12.5 mg PO BID 09/02/21 09/02/21 09/02/21 History prednisone 20 mg PO DAILY 09/02/21 09/02/21 09/02/21 History tramadol 50 mg PO Q8H PRN 09/02/21 09/02/21 Unknown History Allergies Allergy/AdvReac Type Severity Reaction Status Date / Time erythromycin base Allergy Mild ALGY-Rash Verified 09/02/21 12:37 PFSH Acute PFSH: Medical History Aortic valve stenosis Atherosclerosis of coronary artery of [place] heart with stable angina pectoris Atrial fibrillation Bilateral carotid artery stenosis Hyperlipidemia Hypertension Ischemic cardiomyopathy Surgical History History of total left hip arthroplasty History of total right hip arthroplasty S/P hip replacement Right Family History Father CAD (coronary artery disease) Lung disease Denies family history of Diabetes Clotting disorder Dementia Chronic kidney disease (CKD) Suicide Anesthesia complication Bleeding disorder Cancer Stroke Social History Smoking and tobacco status: current some day smoker cigarettes Packs smoked per day: 0.5 Years cigarettes smoked: 58 [ Other cigarette details: 1-2ppd ] Quit status (tobacco): considering quitting Second hand smoke exposure: No Smoking risk assessment/counseling performed?: Yes Alcohol intake: never Lives independently: Yes Household members: spouse Marital status: service: No Current occupational status: retired Pets and animals: Yes History of recent travel: No Current gender identity: Male Vitals/I&O/Wt Last Vital Signs Temp 98.1 F 09/02/21 15:16 Pulse 58 L 09/02/21 17:52 Resp 15 09/02/21 15:17 BP 92/60 09/02/21 17:52 Pulse Ox 94 09/02/21 17:52 09/02/21 09/02/21 09/02/21 06:59 14:59 22:59 Intake Total 250 / 250 Balance 250 / 250 Weight last 48 hrs Weight 122.47 kg Physical Exam Narrative: EXAM NARRATIVE: chronically ill appearing male HENMT: COMMON NORMALS: normocephalic and atraumatic Eye: COMMON NORMALS: Equal, round and reactive pupils present and negative for conjunctivae normal Neck/C-Spine: COMMON NORMALS: full ROM, supple and no JVD Chest: COMMONS NORMALS: normal inspection of the chest Resp: COMMON NORMALS: No use of accessory muscles EFFORT & INSPECTION: Yes other (scattered bibasilar wheezes) Cardio: COMMON NORMALS: regular rate, regular rhythm and No murmurs present (Cardio) GI: COMMON NORMALS: Soft to palpation and no masses PALPATION: No Tenderness to palpation present (GI) Back/Pelvis: COMMON NORMALS: no CVA tenderness Extremity: COMMON NORMALS: negative for no pedal edema NARRATIVE EXTREMITY EXAM: 1 plus pedal edema Neuro: COMMON NORMALS: patient oriented x3, moves all extremities and no sensory deficits noted Psych: COMMON NORMALS: mental status grossly normal and cooperative Skin: COMMON NORMALS: no rashes or lesions noted, no wounds and turgor normal Data : 09/02/21 13:33 09/02/21 13:33 A&P Assessment and plan (1) Acute anemia: Patient is 72 year old male who presented with weakness, fatigue and abnormal labs Noted to be severely anemic with hemoglobin of 5.3 and hematocrit of 18.5 as compared to previous labs with hemoglobin of 9 on 04/09/20. No blood y stools of melena He is not on anticoagulation He will be transfused 2 units of PRBC. Monitor H and H closely Pepcid Status: Acute (2) Atherosclerosis of coronary artery of [place] heart with stable angina pect maureen: Has h/o CAD. Has been following with cardiology Resume home meds of aspirin, statin and beta shorty Telemetry Status: Acute Qualifiers: Coronary Disease-Associated Artery/Lesion type: [place] artery Qualified Code(s): I25.118 - Atherosclerotic heart disease of [place] coronary artery with other forms of angina pectoris (3) Atrial fibrillation: oN METOPROLOL Status: Acute Qualifiers: Atrial fibrillation type: paroxysmal Qualified Code(s): I48.0 - Paroxysmal atrial fibrillation (4) Exertional dyspnea: Likely multifactorial with severe anemia, as well as baseline COPD. Has elevated BNP with new findings of cardiomegaly on CXR ECHO ordered Continue supplemental oxygen, resume nebs/inhalers Status: Acute (5) NATALIE (acute kidney injury): Noted to have elevated serum creatinine of 2.2 which is elevated compared to previous normal level 04/08/20 Etiology unclear Hold lisinopril and amlodipine Monitor I/O, renal function closely If no improvement- renal US and nephrology eval Status: Acute (6) Hyponatremia: Serum sodium 126 Likely related to NATALIE and possible CHF Monitor Status: Acute (7) Elevated troponin: Initial troponin 247 No acute EKG changes of ischemia noted Repeat 2 hour troponin is 248 Likely non cardiac. 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
[2021-09-02] MEDS: atorvastatin 40 mg Tablet PO (19:03)
[2021-09-02] MEDS: famotidine 20 mg Tablet 40 MG PO (19:03)
[2021-09-02] MEDS: sertraline 50 mg Tablet PO (19:04)
[2021-09-02] MEDS: ipratropium 0.5 mg/2.5 mL Neb INHALATION (19:37)
[2021-09-02] MEDS: budesonide 0.5 mg/2 mL Neb INHALATION (19:37)
--- NOTE | 2021-09-02 20:52 | ECG_ITS ---
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1945 Requested By: Monica Robins Order Number: [id number] Reading MD: RONY ROMERO Measurements Intervals [place] Rate: 62 P: 58 MD: 157 QRS: -7 QRSD: 132 T: 160 QT: 412 QTc: 419 Interpretive Statements SINUS RHYTHM INTRAVENTRICULAR CONDUCTION DELAY [130+ ms QRS DURATION] PROBABLE LATERAL MYOCARDIAL INFARCTION , OF INDETERMINATE AGE [35 ms Q WAVE IN I/aVL/V5/V6] Compared to ECG 09/02/2021 14:55:46 Intraventricular conduction delay now present Myocardial infarct finding now present Supraventricular rhythm no longer present T-wave abnormality no longer present Possible ischemia no longer present Electronically Signed On 09-03-2021 18:19:15 WEDDING PLANNER by RONY ROMERO [id number]
--- NOTE | 2021-09-02 21:40 | PM.CONSULT ---
Providers/Reason For Consult Consulting Physician/Specialty*: Cardiology Reason for Consult*: Non-ST ovation SD , atrial fibrillation Attending Physician: Katharina Murray MD Primary Care Provider: Musa Myers History of Present Illness History of Present Illness Ted Borden is a 76 year old male who is not a good historian presented with generalized weakness denies any chest pain noted to have severe anemia with hemoglobin of 5.5 and renal failure with creatinine of 2.2. Cardiac troponin was in the range of 270. Past medical history coronary artery disease aortic stenosis COPD continues tobacco abuse and ischemic cardiomyopathy. Twelve-lead EKG was suggestive of anterolateral ischemia. I been asked to assist in his care. When I saw the patient he denies any complaint he is rate controlled. Review of Systems General: Reports: 10 or more systems reviewed and unremarkable except in HPI and below Narrative: c/o weakness, dyspnea Const: Reports: fatigue, malaise and other; Denies: fever(s), chills or body aches Eyes: Denies: change in vision ENMT: Denies: throat pain, odynophagia, mouth pain or swelling of lips/tongue Card: Reports: orthopnea; Denies: chest pain, palpitations, edema or syncope Resp: Reports: dyspnea and wheezing; Denies: non-productive cough GI: Denies: abdominal pain, nausea, vomiting, dysphagia, diarrhea, hematochezia or melena : Denies: dysuria Musc: Denies: extremity pain Skin/Breast: Denies: rash, pruritus, erythema or new lesions Neuro: Denies: headache(s), numbness in extremities or weakness in extremities Psych: Reports: other (Normal mood); Denies: anxiety, depression or mood swings Jez/Lymph: Denies: easy bruising, easy bleeding or enlarged lymph nodes Medications/Allergies Home Medications Medication Instructions Recorded Confirmed Last Taken Type aspirin 325 mg tablet 325 mg PO QAM 01/06/20 09/02/21 09/02/21 History atorvastatin 40 mg tablet 40 mg PO QPM 01/06/20 09/02/21 09/01/21 History nitroglycerin 0.4 mg sublingual 0.4 mg SUBLINGUAL Q5M PRN 01/06/20 09/02/21 Unknown History tablet sertraline 50 mg tablet 50 mg PO QPM 01/06/20 09/02/21 09/01/21 History tizanidine 2 mg tablet 2 mg PO BEDTIME 01/06/20 09/02/21 09/01/21 History arformoterol [Brovana] 2 ml INHALATION BID 04/03/20 09/02/21 09/02/21 07:30 History budesonide 0.5 mg INHALATION BID 04/03/20 09/02/21 09/02/21 07:30 History multivitamin 1 tab PO QAM 04/03/20 09/02/21 09/02/21 History clopidogrel 75 mg tablet 75 mg PO QAM 04/29/20 09/02/21 09/02/21 History ipratropium bromide 0.02 % 2.5 ml INHALATION BID ml 02/16/21 09/02/21 09/02/21 History solution for inhalation meclizine 25 mg tablet 25 mg PO QPM 02/16/21 09/02/21 Unknown History tiotropium 2.5 mcg-olodaterol 2.5 2 puff INHALATION DAILY #4 g 06/14/21 09/02/21 Unknown Rx mcg/actuation mist for inhalation glipizide 5 mg tablet 5 mg PO QAM tab 08/19/21 09/02/21 09/02/21 History acetaminophen [Tylenol Ex Str 1,000 mg PO Q6H PRN 09/02/21 09/02/21 Unknown History Rapid Release] amlodipine 2.5 mg PO QAM 09/02/21 09/02/21 09/02/21 07:30 History cholecalciferol (vitamin D3) 25 mcg PO QPM 09/02/21 09/02/21 09/01/21 History [Vitamin D3] doxycycline hyclate 100 mg PO BID 09/02/21 09/02/21 09/02/21 History famotidine 40 mg PO QPM 09/02/21 09/02/21 09/01/21 History levalbuterol tartrate 2 puff INHALATION Q6H PRN 09/02/21 09/02/21 Unknown History lisinopril 40 mg PO QPM 09/02/21 09/02/21 09/01/21 History metoprolol tartrate 12.5 mg PO BID 09/02/21 09/02/21 09/02/21 History prednisone 20 mg PO DAILY 09/02/21 09/02/2122 History tramadol 50 mg PO Q8H PRN 09/02/21 09/02/21 Unknown History Allergies Allergy/AdvReac Type Severity Reaction Status Date / Time erythromycin base Allergy Mild ALGY-Rash Verified 09/02/21 12:37 Current Medications Generic Name Dose Route Start Last Admin Trade Name Freq PRN Reason Stop Dose Admin Atorvastatin Calcium 40 mg 09/02/21 18:30 09/02/21 19:03 Atorvastatin 40 Mg Tablet PO 40 mg QPM ILDA Administration Budesonide 0.5 mg 09/02/21 20:00 09/02/21 19:37 Budesonide 0.5 Mg/2 Ml Neb INHALATION 0.5 mg BID.RESPIRATORY ILDA Administration Famotidine 40 mg 09/02/21 18:30 09/02/21 19:03 Famotidine 20 Mg Tablet PO 40 mg QPM ILDA Administration Ipratropium [place] 0.5 mg 09/02/21 20:00 09/02/21 19:37 Ipratropium 0.5 Mg/2.5 Ml Neb INHALATION 0.5 mg BID.RESPIRATORY ILDA Administration Non-Formulary Medication 2 ml 09/02/21 18:00 09/02/21 19:05 Arformoterol [Brovana] INHALATION Not Given BID ILDA Sertraline HCl 50 mg 09/02/21 18:30 09/02/21 19:04 Sertraline 50 Mg Tablet PO 50 mg QPM ILDA Administration PFSH Acute PFSH: Medical History Aortic valve stenosis Atherosclerosis of coronary artery of [place] heart with stable angina pectoris Atrial fibrillation Bilateral carotid artery stenosis Hyperlipidemia Hypertension Ischemic cardiomyopathy Surgical History History of total left hip arthroplasty History of total right hip arthroplasty S/P hip replacement Right Family History Father CAD (coronary artery disease) Lung disease Denies family history of Diabetes Clotting disorder Dementia Chronic kidney disease (CKD) Suicide Anesthesia complication Bleeding disorder Cancer Stroke Social History Smoking and tobacco status: current some day smoker cigarettes Packs smoked per day: 0.5 Years cigarettes smoked: 58 [ Other cigarette details: 1-2ppd ] Quit status (tobacco): considering quitting Second hand smoke exposure: No Smoking risk assessment/counseling performed?: Yes Alcohol intake: never Lives independently: Yes Household members: spouse Marital status: service: No Current occupational status: retired Pets and animals: Yes History of recent travel: No Current gender identity: Male Dietary Habits: Current diet type/program: regular Caffeine: Yes Vitals/I&O/Wt Last Vital Signs Temp 98.5 F 09/02/21 18:57 Pulse 60 09/02/21 18:57 Resp 20 H 09/02/21 18:57 BP 108/63 09/02/21 18:57 Pulse Ox 92 09/02/21 18:25 09/02/21 09/02/21 09/02/21 06:59 14:59 22:59 Intake Total 250 / 250 Balance 250 / 250 Weight last 48 hrs Weight 270 lb Physical Exam Narrative: EXAM NARRATIVE: GENERAL: Patient is awake oriented heart to NECK: No jugular vein distension. [] HEENT: No cyanosis. No icterus. No pallor. [] HEART: Regular S1 and S2. No murmur, rub or gallop. [] LUNGS: Clear to auscultate bilaterally. [] ABDOMEN: Protuberant, nontender and distended. Positive bowel sounds. No guarding, rebound or tenderness. [] CENTRAL NERVOUS SYSTEM: Grossly nonfocal. [] A&P Assessment and plan (1) Elevated troponin: Most likely due to underlying coronary artery disease and demand ischemia in the face of acute anemia, patient denies bleeding per rectum but not a good historian he was on anticoagulation and antiplatelet therapy. Unfortunately continue to smoke he told me he has just quit. At this point we will manage him medically, he is getting transfused we will keep hemoglobin above 9, isosorbide mononitrate will be added. Will avoid anticoagulation. We will hold aspirin and Plavix as well. We will ask for echo to assess LV function and wall motion abnormality. Status: Acute (2) Acute anemia: Possible due to GI with anemia of chronic disease such as renal failure, he is getting transfused may need scope at some point Status: Acute (3) Ischemic cardiomyopathy: The moment appear to be we will continue to treat him medically Status: Acute (4) Atrial fibrillation: Rate controlled will avoid anticoagulation due to acute anemia Status: Acute Qualifiers: Atrial fibrillation type: paroxysmal Qualified Code(s): I48.0 - Paroxysmal atrial fibrillation (5) NATALIE (acute kidney injury): After transfusion and gentle hydration may will improve with Status: Acute Consult Attestations Medical Necessity Statement: Continuation hospitalization for above defined care. Coding Level of Care Code New Pt Acute Central Scheduler for Chg Fwd Patient Type New History Detailed Exam Detailed Medical Decision Making Moderate Complexity Diagnoses Elevated troponin R77.8 Acute anemia D64.9 Ischemic cardiomyopathy I25.5 Atrial fibrillation I48.0 Atrial fibrillation type: paroxysmal NATALIE (acute kidney injury) N17.9
[2021-09-02] MEDS: tizanidine 4 mg Tablet 2 MG PO (22:30)
[2021-09-02] MEDS: metoprolol tartrate 25 mg Tablet 12.5 MG PO (22:30)
[2021-09-02 22:56] LABS: Basophils % 0.2 %; Eosinophils % 0.1 %; Hematocrit 23.8 % (42.0-52.0); Hemoglobin 7.1 g/dL (11.7-16.6); Lymphocytes # 0.7 10^3/uL (0.8-4.8); Lymphocytes % 8.3 %; Mean Corpuscular HGB Conc 29.8 g/dL (30.0-36.0); Mean Corpuscular Hemoglobin 22.6 pg (28.0-34.0); Mean Corpuscular Volume 75.8 fl (80-94); Mean Platelet Volume 11.1 fL (7.4-10.4); Monocytes # 0.7 10^3/uL (0.2-0.9); Monocytes % 7.6 %; Neutrophils # 7.23 10^3/uL (1.8-7.7); Neutrophils % 81.8 %; Nucleated Red Blood Cells # 0.4 /100WBC; Nucleated Red Blood Cells % 4.2 %; Platelet Count 282 10^3/cmm (130-400); Red Blood Count 3.14 10^6/uL (4.1-5.3); Red Cell Distribution Width 18.2 % (12.1-15.1); White Blood Count 8.8 10^3/uL (4.0-10.0)
[2021-09-02 23:14] LABS: Troponin 5 6HR 195.9 ng/L (0-15)
[2021-09-02 23:20] LABS: Anion Gap 20.6 (5-19); Blood Urea Nitrogen 47 mg/dL (8-23); Calcium 8.7 mg/dL (8.5-10.5); Carbon Dioxide 16 mmol/L (22-29); Chloride 95 mmol/L (98-107); Creatinine Clr Calc Pharmacy 47.9559; Glucose 135 mg/dL (65-115); Osmolality Calculated 276 mOsm/kg (285-295); Potassium 5.6 mmol/L (3.5-5.1); Sodium 126 mmol/L (136-145)
[2021-09-03] VITALS (17 sets, daily range): BP systolic 83–116; BP diastolic 54–68; PULSE 71–131; RESP 15–31; TEMP 36.6–36.7; O2SAT 91–97
--- NOTE | 2021-09-03 00:51 | ECG_ITS ---
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1945 Requested By: Flaco Moore Order Number: [id number] Reading MD: FLACO MOORE Measurements Intervals [place] Rate: 125 P: [place]: QRS: -1 QRSD: 133 T: 180 QT: 297 QTc: 430 Interpretive Statements ATRIAL FIBRILLATION WITH RAPID VENTRICULAR RESPONSE INTRAVENTRICULAR CONDUCTION DELAY [130+ ms QRS DURATION] Compared to ECG 09/02/2021 21:45:32 Sinus rhythm no longer present Myocardial infarct finding no longer present Electronically Signed On 09-03-2021 18:19:12 SCALEMAKER by FLACO MOORE [id number]
[2021-09-03] MEDS: metoprolol tartrate 1 mg/1 mL SDV 5 mL 5 MG IVP (02:29)
--- NOTE | 2021-09-03 02:33 | PC.NURSE ---
00:00 09/03/2021 Patient noted to be tachycardic with heart rate 160-190. crew caller hospitalist and director of medical education financial professional notified. Orders received for Cardizem gtt and 5mg metoprolol IVP once. Medication administered, continuous monitoring in place.
[2021-09-03 02:45] LABS: Basophils % 0.1 %; Hematocrit 22.2 % (42.0-52.0); Hemoglobin 6.7 g/dL (11.7-16.6); Lymphocytes # 0.8 10^3/uL (0.8-4.8); Lymphocytes % 12.3 %; Mean Corpuscular HGB Conc 30.2 g/dL (30.0-36.0); Mean Corpuscular Hemoglobin 22.6 pg (28.0-34.0); Mean Corpuscular Volume 74.7 fl (80-94); Mean Platelet Volume 10.9 fL (7.4-10.4); Monocytes # 0.5 10^3/uL (0.2-0.9); Monocytes % 6.6 %; Neutrophils # 5.35 10^3/uL (1.8-7.7); Neutrophils % 78.7 %; Nucleated Red Blood Cells # 0.1 /100WBC; Nucleated Red Blood Cells % 2.1 %; Platelet Count 236 10^3/cmm (130-400); Red Blood Count 2.97 10^6/uL (4.1-5.3); Red Cell Distribution Width 17.8 % (12.1-15.1); White Blood Count 6.8 10^3/uL (4.0-10.0)
[2021-09-03 03:10] LABS: Anion Gap 17.6 (5-19); Blood Urea Nitrogen 45 mg/dL (8-23); Calcium 8.6 mg/dL (8.5-10.5); Carbon Dioxide 19 mmol/L (22-29); Chloride 95 mmol/L (98-107); Glucose 116 mg/dL (65-115); Osmolality Calculated 275 mOsm/kg (285-295); Potassium 5.6 mmol/L (3.5-5.1); Sodium 126 mmol/L (136-145)
[2021-09-03] MEDS: clopidogrel 75 mg Tablet PO (05:49)
[2021-09-03] MEDS: ipratropium 0.5 mg/2.5 mL Neb INHALATION ×2 (07:45→21:19)
[2021-09-03] MEDS: budesonide 0.5 mg/2 mL Neb INHALATION ×2 (07:45→21:19)
[2021-09-03] MEDS: metoprolol tartrate 25 mg Tablet 12.5 MG PO (08:02)
[2021-09-03] MEDS: FUROsemide 10 mg/mL SDV 4mL 40 MG IVP (08:02)
--- NOTE | 2021-09-03 10:30 | PC.CHAP ---
Pastoral Care Encounter/Spiritual Assessment Type of Contact [] Declined child care education coordinator visit [] Patient/Family/Request visit [] Outpatient visit [] Follow-up visit [] Physician referral [] Code/Alert [xx] Routine visit [xx] Staff referral [] Actively dying [] Patient sleeping [] Family support [] [] Out of room [] Palliative care [] [] Receiving care in room [] Pre-surgical visit [] Trauma [] Long length of stay [] ICU visit [] Other: Relational/Emotional Strength [xx] Patient feels connected with others/family/visitors/staff [] Distress [xx] Loneliness/isolation [] Abandonment Spirituality of Patient [xx] Person of Pema [] Attends Muslim of their Pema [xx] Believes in Prayer [xx] Reads Bible or Roman Catholic materials [] There are Spiritual issues to be addressed Baggage Agent Supervisor Interventions [xx] Prayer [xx] Active listening [xx] Non-anxious presence [] Spiritual/emotional support [] Crisis/trauma care [] Spiritual counseling [] Bereavement support [] Provided bereavement packet [xx] Provided Bible/devotional materials [] Provided toy/stuffed animal, coloring book to patient or family member [] Provided Communion [] Anointing/[place] [] Salvation [xx] Completed spiritual assessment [] Other: Impact on Illness or Injury [] Angry [] Fearful [] Anxious [] Often cries [] Exhaustion [] Unable to work [] Unable to attend presybeterian [] Unable to walk/stand [] Unable to read [xx] Unable to drive [] Unable to eat/drink [xx] Unable to sleep [] Unable to be with family [] Patient intubated [] Other: Summary Patient needed to talk. Nurse asked child care education coordinator to spend extra time with him. Patient spends too much time thinking about his heart and lung problems and needs to be distracted if only for a few minutes. Patient is a pleasant older gentleman with breathing difficulties that keep him uncomfortable and changing positions a lot. He talked mostly about his son and his son's farm and activities but also mentioned he has a daughter and 3 grandchildren he is not close to and does not see often. He has been 3 times. His current is coming to visit him today. Time spent with patient 20 minutes
[2021-09-03] MEDS: cholecalciferol (vitamin D3) 1,000 unit Tablet 1000 UNIT PO (11:47)
[2021-09-03] MEDS: nicotine 21 mg Patch 1 PATCH TRANSDERMA (11:47)
[2021-09-03] MEDS: multivitamin therapeutic Tablet 1 TAB PO (11:47)
--- NOTE | 2021-09-03 12:09 | P.PN_ITS ---
Subjective Subjective: Interval history: Patient went into atrial fib with RVR overnight and was started on IV cardizem infusion. He has coarse wheezing. He denies chest pain Medications: Reviewed: Yes Vitals/I&O/Wt Last Vital Signs Temp 98.1 F 09/02/21 22:00 Pulse 113 H 09/03/21 08:37 Resp 20 H 09/03/21 08:37 BP 121/56 09/02/21 20:57 Pulse Ox 92 09/03/21 08:37 09/02/21 09/03/21 09/03/21 22:59 06:59 14:59 Intake Total 750 / 750 411.083 / 1161.083 18.25 / 18.25 Output Total 550 / 550 Balance 200 / 200 411.083 / 611.083 18.25 / 18.25 Weight last 48 hrs Weight 122.47 kg Physical Exam Narrative: EXAM NARRATIVE: Patient ill appearing, somewhat disoriented, obese, mildly anxious Const: COMMON NORMALS: alert ORIENTATION/CONSCIOUSNESS: Yes oriented to person and Yes oriented to place HENMT: COMMON NORMALS: normocephalic, atraumatic, Normal external nose present and moist oral mucous membranes HEAD & SCALP: normocephalic and atraumatic FACE & SINUS: sinuses nontender NOSE: Normal external nose present Eye: COMMON NORMALS: conjunctivae normal and no scleral icterus CONJUNCTIVA: Yes conjunctivae normal Neck/C-Spine: COMMON NORMALS: full ROM, supple, no JVD and Thyroid normal THYROID: Thyroid normal Chest: COMMONS NORMALS: normal inspection of the chest Resp: EFFORT & INSPECTION: Yes tachypneic AUSCULTATION: wheezes scattered wheezes and lower bilaterally Cardio: COMMON NORMALS: no JVD and No murmurs present (Cardio) OTHER: Irregularly irregular, HR 110 GI: COMMON NORMALS: Soft to palpation, non-tender and no masses PALPATION: Yes Soft to palpation OTHER: obese : COMMON NORMALS: Yes no CVA tenderness BLADDER/KIDNEY EXAM: Yes no CVA tenderness Back/Pelvis: COMMON NORMALS: no CVA tenderness and thoracic and lumbar spine n ormal to inspection Extremity: COMMON NORMALS: full ROM NARRATIVE EXTREMITY EXAM: 1 plus bilateral pedal edema Neuro: SENSORIUM/ORIENTATION: Yes alert, Yes oriented to person and Yes oriented to place Psych: COMMON NORMALS: mental status grossly normal and cooperative Skin: COMMON NORMALS: no rashes or lesions noted, no wounds, turgor normal, no jaundice and no petechiae GENERAL SKIN EXAM: no rashes or lesions noted and turgor normal Data : 09/03/21 02:12 09/03/21 02:12 A&P Assessment and plan (1) Acute anemia: Patient is 72 year old male who presented with weakness, fatigue and abnormal labs Noted to be severely anemic with hemoglobin of 5.3 and hematocrit of 18.5 as compared to previous labs with hemoglobin of 9 on 04/09/20. No blood y stools of melena He is not on anticoagulation except for plavix Patient received PRBC 2 units- hemoglobin 6.7- will transfuse additional unit and continue to monitor Pepcid May require scope to evaluate for GI source of blood loss- however, due to acute issues including rapid a fib and NATALIE, hyperkalemia- will hold for now Status: Acute (2) Atherosclerosis of coronary artery of [place] heart with stable angina pectoris: Has h/o CAD. Has been following with cardiology On home meds of aspirin, statin and beta shorty Telemetry Status: Acute Qualifiers: Coronary Disease-Associated Artery/Lesion type: [place] artery Qualified Code(s): I25.118 - Atherosclerotic heart disease of [place] coronary artery with other forms of angina pectoris (3) Atrial fibrillation: Overnight patient placed on cardizem infusion for atrial fib with RVR- will continue Increase dose of PO metoprolol to 50 QD Status: Acute Qualifiers: Atrial fibrillation type: paroxysmal Qualified Code(s): I48.0 - Paroxysmal atrial fibrillation (4) Exertional dyspnea: Likely multifactorial with severe anemia, as well as baseline COPD. Has elevated BNP with new findings of cardiomegaly on CXR- given lasix x 1 post transfusion of 2 units of PRBC ECHO ordered Continue supplemental oxygen, resume nebs/inhalers Status: Acute (5) NATALIE (acute kidney injury): Noted to have elevated serum creatinine of 2.2 which is elevated compared to previous normal level 04/08/20 Etiology unclear Hold lisinopril and amlodipine Monitor I/O, renal function closely Creatinine improved to 1.6- good urine output. Continue to monitor closely Status: Acute (6) Hyponatremia: Serum sodium 126 Likely related to NATALIE and possible CHF Monitor Status: Acute (7) Elevated troponin: Initial troponin 247 No acute EKG changes of ischemia noted Repeat 2 hour troponin is 248 Likely non cardiac. May be related to renal failure Status: Acute (8) Cardiomegaly: as above Status: Acute (9) Hyperkalemia: Potassium 5.6- continue to hold lisinopril- he recd lasix- will recheck potassium level this afternoon Status: Acute Attestations Medical Necessity Statement*: Patient requires continued hospitalization for management of his acute medical problems including atrial fib with RVR, NATALIE, hyponatremia and severe anemia Coding Level of Care Code Acute Gold Leaf Layer for Chg Fwd Exam Comprehensive Diagnoses Acute anemia D64.9 Atherosclerosis of coronary artery of [place] heart with stable angina pectoris I25.118 Coronary Disease-Associated Artery/Lesion type: [place] artery Atrial fibrillation I48.0 Atrial fibrillation type: paroxysmal Exertional dyspnea R06.00 NATALIE (acute kidney injury) N17.9 Hyponatremia E87.1 Elevated troponin R77.8 Cardiomegaly I51.7 Hyperkalemia E87.5
[2021-09-03] MEDS: aspirin 325 mg Tablet PO (13:14)
[2021-09-03] MEDS: metoprolol succinate ER (24 HR) 50 mg Tablet PO (13:14)
[2021-09-03] MEDS: TRAMadol 50 mg Tablet PO (14:42)
[2021-09-03] MEDS: polyethylene glycol 3350 Pkt 17 gm PO (17:49)
[2021-09-03] MEDS: famotidine 20 mg Tablet 40 MG PO (17:54)
[2021-09-03] MEDS: sertraline 50 mg Tablet PO (17:54)
[2021-09-03] MEDS: docusate sodium 100 mg Capsule PO (17:54)
[2021-09-03] MEDS: atorvastatin 40 mg Tablet PO (17:54)
--- NOTE | 2021-09-03 18:17 | USCV_ITS ---
MichiTed Age: 76 Gender: M : 1945 Exam Date: 09/03/2021 06:17 Ordering Phys: Katharina Murray MD Technologist: ISAAC [place] [facility] [place]: SOB CHF. History of mild . BP: 108 / 55 HR: 105 Rhythm: Sinus Technical Quality: Adequate MEASUREMENTS (Male / Female) Normal Values 2D ECHO LV Diastolic Diameter PLAX 5.1 cm 4.2 - 5.9 / 3.9 - 5.3 cm LV Systolic Diameter PLAX 4.4 cm IVS Diastolic Thickness 1.5 cm 0.6 - 1.0 / 0.6 - 0.9 cm IVS Systolic Thickness 1.8 cm LVPW Diastolic Thickness 1.4 cm 0.6 - 1.0 / 0.6 - 0.9 cm LVPW Systolic Thickness 1.5 cm LVOT Diameter 2.2 cm LV Ejection Fraction 2D Teich 31.3 % LV Ejection Fraction MOD 2C 51.1 % LV Ejection Fraction 2C AL 52.7 % LA Diameter 5.1 cm LA Width 6.0 cm LA Height 7.5 cm RA Width 5.8 cm RA Height 6.1 cm Aorta at Sinotubular Diameter 3.0 cm M-MODE Aortic Annulus Diameter 3.5 cm LA Ao Ratio MM 1.5 MV E Point Septal Separation 0.7 cm DOPPLER AV Peak Velocity 298.0 cm/s LVOT Peak Velocity 114.0 cm/s AV Area Cont Eq vti 1.4 cm squared AV Area Cont Eq pk 1.5 cm squared MV Peak Velocity 127.0 cm/s MV Area PHT 4.8 cm squared Mitral E to A Ratio 172.4 MV E' Velocity 66.0 cm/s Mitral E to MV E' Ratio 11.9 Mitral E to LV E' Lateral Ratio 10.9 Mitral E to LV E' Septal Ratio 13.3 TR Peak Velocity 268.0 cm/s TR Peak Gradient 28.7 mmHg TV Peak E Velocity 68.0 cm/s Right Atrial Pressure 20.0 mmHg Pulmonary Artery Systolic Pressu 48.7 mmHg PV Peak Velocity 134.0 cm/s RV Acceleration Time 0.1 s RV Ejection Time 0.4 s RV AcT/ET 0.3 FINDINGS Left Ventricle Normal LV size with diminished ejection fraction of 45 to 50%. Mild diffuse hypokinesia of the left ventricle. Right Ventricle The right ventricle is normal in size and function. Right Atrium Mildly increased right atrial size. Left Atrium Moderately increased left atrial size. Mitral Valve Thickened mitral valve. Moderate mitral valve regurgitation. Aortic Valve Moderate aortic valve calcification. Moderate aortic valve stenosis, mean gradient 92 mmHg, NUNU 1.4 cm squared. Peak gradient of 37 mmHg. Peak velocity of 3.03 m/s Tricuspid Valve [id number] tricuspid valve regurgitation. Estimated pulmonary artery peak systolic pressure of 49 mmHg Pulmonic Valve Pulmonic valve not well visualized. Pericardium Normal pericardium without effusion. Aorta Normal ascending aorta dimension. CONCLUSIONS Normal LV size with diminished ejection fraction of 45 to 50%. Mild diffuse hypokinesia of the left ventricle. Moderate aortic valve calcification. Moderate aortic valve stenosis, mean gradient 92 mmHg, NUNU 1.4 cm squared. Peak gradient of 37 mmHg. Peak velocity of 3.03 m/s. [id number] tricuspid valve regurgitation. Estimated pulmonary artery peak systolic pressure of 49 mmHg. Thickened mitral valve. Moderate mitral valve regurgitation. There is no pericardial effusion. There are no intracardiac masses. No previous study is available for comparison. Dr. Murray was informed about these findings Dr Justyn Middleton MD [facility] (Electronically Signed) Final Date: 03 September 2021 15:21 S
[2021-09-03 19:15] LABS: Hemoglobin 8.5 g/dL (11.7-16.6)
[2021-09-03] MEDS: tizanidine 4 mg Tablet 2 MG PO (20:39)
[2021-09-04] VITALS (21 sets, daily range): BP systolic 90–140; BP diastolic 50–79; PULSE 67–126; RESP 13–25; TEMP 36.4–36.8; O2SAT 95–97
[2021-09-04 04:59] LABS: Basophils # 0.1 10^3/uL (0.0-0.1); Basophils % 0.8 %; Eosinophils # 0.1 10^3/uL (0.0-0.8); Eosinophils % 0.8 %; Hematocrit 28.4 % (42.0-52.0); Hemoglobin 8.4 g/dL (11.7-16.6); Lymphocytes # 2.2 10^3/uL (0.8-4.8); Lymphocytes % 20.9 %; Mean Corpuscular HGB Conc 29.6 g/dL (30.0-36.0); Mean Corpuscular Hemoglobin 22.7 pg (28.0-34.0); Mean Corpuscular Volume 76.8 fl (80-94); Mean Platelet Volume 10.5 fL (7.4-10.4); Monocytes # 1.5 10^3/uL (0.2-0.9); Monocytes % 13.9 %; Neutrophils # 6.64 10^3/uL (1.8-7.7); Neutrophils % 62.7 %; Nucleated Red Blood Cells # 0.1 /100WBC; Nucleated Red Blood Cells % 1.3 %; Platelet Count 276 10^3/cmm (130-400); White Blood Count 10.6 10^3/uL (4.0-10.0)
[2021-09-04 05:15] LABS: Anion Gap 17.4 (5-19); Blood Urea Nitrogen 36 mg/dL (8-23); Calcium 8.7 mg/dL (8.5-10.5); Carbon Dioxide 22 mmol/L (22-29); Chloride 98 mmol/L (98-107); Creatinine Clr Calc Pharmacy 86.3207; Glucose 99 mg/dL (65-115); Osmolality Calculated 284 mOsm/kg (285-295); Potassium 4.4 mmol/L (3.5-5.1); Sodium 133 mmol/L (136-145)
[2021-09-04] MEDS: clopidogrel 75 mg Tablet PO (06:13)
[2021-09-04] MEDS: budesonide 0.5 mg/2 mL Neb INHALATION ×2 (07:29→22:02)
[2021-09-04] MEDS: ipratropium 0.5 mg/2.5 mL Neb INHALATION ×2 (07:29→22:02)
[2021-09-04] MEDS: docusate sodium 100 mg Capsule PO ×2 (08:51→17:23)
[2021-09-04] MEDS: metoprolol succinate ER (24 HR) 50 mg Tablet PO (08:51)
[2021-09-04] MEDS: multivitamin therapeutic Tablet 1 TAB PO (08:51)
[2021-09-04] MEDS: nicotine 21 mg Patch 1 PATCH TRANSDERMA (08:51)
[2021-09-04] MEDS: polyethylene glycol 3350 Pkt 17 gm PO (08:52)
[2021-09-04] MEDS: cholecalciferol (vitamin D3) 1,000 unit Tablet 1000 UNIT PO (08:52)
--- NOTE | 2021-09-04 10:33 | P.PN_ITS ---
Subjective Subjective: Interval history: Patient lethargic, sleeping. Awakens briefly, but not very conversant today. Has had chest congestion with audible wheezing and cough Medications: Reviewed: Yes Vitals/I&O/Wt Last Vital Signs Temp 98.1 F 09/03/21 20:32 Pulse 79 09/04/21 07:33 Resp 16 09/04/21 07:33 BP 113/70 09/04/21 06:00 Pulse Ox 97 09/04/21 07:33 09/03/21 09/04/21 09/04/21 22:59 06:59 14:59 Intake Total 739.833 / 1153.750 163.167 / 1316.917 406.833 / 406.833 Output Total 1005 / 2055 950 / 3005 Balance -265.167 / -901.250 -786.833 / -1688.083 406.833 / 406.833 Weight last 48 hrs Weight 122.47 kg Physical Exam Narrative: EXAM NARRATIVE: chronically ill appearing Const: COMMON NORMALS: patient oriented x3 HENMT: COMMON NORMALS: normocephalic, atraumatic and hearing grossly normal bilaterally HEAD & SCALP: normocephalic and atraumatic Eye: COMMON NORMALS: Equal, round and reactive pupils present and EOMs intact bilaterally PUPIL: Yes Equal, round and reactive pupils present Neck/C-Spine: COMMON NORMALS: full ROM and supple Resp: COMMON NORMALS: No retractions and No use of accessory muscles AUSCULTATION: rhonchi lower bilaterally Cardio: COMMON NORMALS: S1 normal heart sound present and S2 normal heart sound present HEART SOUNDS: S1 normal heart sound present and S2 normal heart sound present OTHER: irregular, rate 80/min GI: COMMON NORMALS: Soft to palpation, non-tender and no masses PALPATION: Yes Soft to palpation Extremity: OTHER: has 1 plus bilateral pedal edema Neuro: COMMON NORMALS: patient oriented x3, moves all extremities, no focal motor deficits and no sensory deficits noted Psych: COMMON NORMALS: mental status grossly normal Skin: COMMON NORMALS: no rashes or lesions noted and no jaundice GENERAL SKIN EXAM: no rashes or lesions noted Data : 09/04/21 04:13 09/04/21 04:13 A&P Assessment and plan (1) Acute anemia: Patient is 72 year old male who presented with weakness, fatigue and abnormal labs Noted to be severely anemic with hemoglobin of 5.3 and hematocrit of 18.5 as compared to previous labs with hemoglobin of 9 on 04/09/20. Patient has received 3 units PRBC since admission- hemoglobin stable at 8.4 No active bleeding Continue pepcid May require scope to evaluate for GI source of blood loss- however, due to acute issues including rapid a fib and NATALIE, hyperkalemia- will hold for now and may be obtained as outpatient Status: Acute (2) Acute decompensated heart failure: Patient noted to have signs of fluid overload on imaging with elevated BNP. Improved with IV lasix Started on PO lasix ECHO obtained and reviewed with EF of 45 percent and moderate aortic stenosis and moderate mitral regurgitation Lisinopril resumed at lower dose Will need outpatient cardiology F/U Status: Acute (3) Atrial fibrillation with RVR: Wean off cardizem infusion. Continue PO metoprolol Status: Acute (4) Atherosclerosis of coronary artery of [place] heart with stable angina pectoris: Has h/o CAD. Has been following with cardiology On home meds of aspirin, statin and beta shorty Telemetry Status: Acute Qualifiers: Coronary Disease-Associated Artery/Lesion type: [place] artery Qualified Code(s): I25.118 - Atherosclerotic heart disease of [place] coronary artery with other forms of angina pectoris (5) Atrial fibrillation: Will D/C cardizem infusion Continue PO metoprolol Cardiology following Not a current candidate for [facility] anticoagulation due to anemia Status: Acute Qualifiers: Atrial fibrillation type: paroxysmal Qualified Code(s): I48.0 - Parox ysmal atrial fibrillation (6) Exertional dyspnea: Likely multifactorial with severe anemia, as well as baseline COPD and new onset CHF exacerbation Has elevated BNP with new findings of cardiomegaly on CXR- given lasix x 1 post transfusion of 2 units of PRBC ECHO noted with EF of 45 percent, mild hypokinesis of LV, moderate aortic stenosis and moderate mitral regurg Continue supplemental oxygen, resume nebs/inhalers Lasix PO started Resume lisinopril Will need cardiology F/U as outpatient Status: Acute (7) NATALIE (acute kidney injury): Noted to have elevated serum creatinine of 2.2 which is elevated compared to previous normal level 04/08/20 Improved to baseline with serum creatinine of 1.0 today. Lisinopril was held- will resume at lower dose. Monitor renal function, I/O closely Status: Acute (8) Hyponatremia: Serum sodium 126 on arrival Likely related to NATALIE and possible CHF Has improved to 133 Status: Acute (9) Elevated troponin: Initial troponin 247 No acute EKG changes of ischemia noted Repeat 2 hour troponin is 248 Likely non cardiac. May be related to renal failure Status: Acute (10) Hyperkalemia: Potassium 5.6- has now returned to normal range Status: Acute (11) Acute exacerbation of chronic obstructive pulmonary disease: Continue nebs Add solumedrol Monitor He is a smoker with baseline COPD Status: Acute Attestations Medical Necessity Statement*: Patient requires ongoing hospitalization for management of acute medical problems including severe anemia, NATALIE, CHF decompen sated as well as atrial fib Coding Level of Care Code Acute Information Technology Administrator for g Fwd Exam Comprehensive Diagnoses Acute anemia D64.9 Acute decompensated heart failure I50.9 Atrial fibrillation with RVR I48.91 Atherosclerosis of coronary artery of [place] heart with stable angina pectoris I25.118 Coronary Disease-Associated Artery/Lesion type: [place] artery Atrial fibrillation I48.0 Atrial fibrillation type: paroxysmal Exertional dyspnea R06.00 NATALIE (acute kidney injury) N17.9 Hyponatremia E87.1 Elevated troponin R77.8 Hyperkalemia E87.5 Acute exacerbation of chronic obstructive pulmonary disease J44.1
[2021-09-04] MEDS: lisinopril 5 mg Tablet PO (11:31)
[2021-09-04] MEDS: aspirin 325 mg Tablet PO (11:31)
[2021-09-04] MEDS: FUROsemide 40 mg Tablet PO (11:31)
[2021-09-04] MEDS: guaiFENesin 600 mg Tablet PO ×2 (13:06→17:23)
--- NOTE | 2021-09-04 13:43 | PM.PN ---
Subjective Subjective: Interval history: Sitting in the chair heart rate is decently controlled but continues to be in A. fib. Creatinine has improved. Hemoglobin is more than 8.5 Medications: Reviewed: Yes Vitals/I&O/Wt Last Vital Signs Temp 98.3 F 09/04/21 11:44 Pulse 89 09/04/21 11:44 Resp 25 H 09/04/21 11:44 BP 131/74 09/04/21 11:44 Pulse Ox 97 09/04/21 07:33 09/03/21 09/04/21 09/04/21 22:59 06:59 14:59 Intake Total 739.833 / 1153.750 163.167 / 1316.917 766.833 / 766.833 Output Total 1005 / 2055 950 / 3005 300 / 300 Balance -265.167 / -901.250 -786.833 / -1688.083 466.833 / 466.833 Physical Exam Narrative: EXAM NARRATIVE: GENERAL: Patient is awake oriented heart to NECK: No jugular vein distension. HEENT: No cyanosis. No icterus. No pallor. HEART: Regular S1 and S2. No murmur, rub or gallop. LUNGS: Decreased breath sounds bilaterally with expiratory wheeze ABDOMEN: Protuberant, nontender and distended. Positive bowel sounds. No guarding, rebound or tenderness. CENTRAL NERVOUS SYSTEM: Grossly nonfocal. Data : 09/04/21 04:13 09/04/21 04:13 A&P Assessment and plan (1) Elevated troponin: Most likely due to underlying coronary artery disease and demand ischemia in the face of acute anemia, patient denies bleeding per rectum but not a good historian he was on anticoagulation and antiplatelet therapy. Unfortunately continue to smoke he told me he has just quit. At this point we will manage him medically, he is getting transfused we will keep hemoglobin above 9, isosorbide mononitrate will be added. Will avoid anticoagulation. We will hold aspirin and Plavix as well. We will ask for echo to assess LV function and wall motion abnormality. Due to severe anemia and possible bleed we will continue to manage him medically continue beta-shorty aspirin statin Status: Acute (2) Acute anemia: Status post transfusion creatinine is 8.4 Status: Acute (3) Ischemic cardiomyopathy: The moment appear to be we will continue to treat him medically Status: Acute (4) Atrial fibrillation: Rate control continue current Status: Acute Qualifiers: Atrial fibrillation type: paroxysmal Qualified Code(s): I48.0 - Paroxysmal atrial fibrillation (5) NATALIE (acute kidney injury): Creatinine has improved and normalized Status: Acute Attestations Medical Necessity Statement*: Patient require continuation hospitalization for above defined care. Coding Level of Care Code Established Pt Acute Velvet Weaver for g Fwd Patient Type Established History Detailed Exam Detailed Medical Decision Making Moderate Complexity Diagnoses Elevated troponin R77.8 Acute anemia D64.9 Ischemic cardiomyopathy I25.5 Atrial fibrillation I48.0 Atrial fibrillation type: paroxysmal NATALIE (acute kidney injury) N17.9
[2021-09-04] MEDS: sertraline 50 mg Tablet PO (17:23)
[2021-09-04] MEDS: famotidine 20 mg Tablet 40 MG PO (17:23)
[2021-09-04] MEDS: atorvastatin 40 mg Tablet PO (17:23)
[2021-09-04] MEDS: bisacodyl 10 mg Supp PR (18:35)
[2021-09-04] MEDS: tizanidine 4 mg Tablet 2 MG PO (21:55)
[2021-09-05] VITALS (35 sets, daily range): BP systolic 100–121; BP diastolic 65–87; PULSE 67–120; RESP 13–27; TEMP 36.7–37.2; O2SAT 90–97
[2021-09-05 04:01] LABS: Basophils % 0.1 %; Lymphocytes # 0.7 10^3/uL (0.8-4.8); Lymphocytes % 9.2 %; Mean Corpuscular HGB Conc 29.6 g/dL (30.0-36.0); Mean Corpuscular Hemoglobin 22.9 pg (28.0-34.0); Mean Corpuscular Volume 77.1 fl (80-94); Mean Platelet Volume 10.5 fL (7.4-10.4); Monocytes # 0.2 10^3/uL (0.2-0.9); Monocytes % 2.5 %; Neutrophils # 6.72 10^3/uL (1.8-7.7); Neutrophils % 86.9 %; Nucleated Red Blood Cells # 0.1 /100WBC; Nucleated Red Blood Cells % 0.8 %; Platelet Count 249 10^3/cmm (130-400); Red Cell Distribution Width 18.3 % (12.1-15.1); White Blood Count 7.7 10^3/uL (4.0-10.0)
[2021-09-05 04:24] LABS: Anion Gap 18.8 (5-19); Blood Urea Nitrogen 29 mg/dL (8-23); Carbon Dioxide 21 mmol/L (22-29); Chloride 94 mmol/L (98-107); Creatinine Clr Calc Pharmacy 86.3207; Glucose 143 mg/dL (65-115); Osmolality Calculated 276 mOsm/kg (285-295); Potassium 4.8 mmol/L (3.5-5.1); Sodium 129 mmol/L (136-145)
[2021-09-05] MEDS: clopidogrel 75 mg Tablet PO (06:14)
[2021-09-05] MEDS: metoprolol succinate ER (24 HR) 50 mg Tablet PO (06:14)
--- NOTE | 2021-09-05 08:08 | PM.PN ---
Subjective Subjective: Interval history: Patient awake and alert. Has had coughing spells and HR goes up when he coughs He has some dyspnea and wheezing Medications: Reviewed: Yes Vitals/I&O/Wt Last Vital Signs Temp 98.9 F 09/05/21 07:21 Pulse 114 H 09/05/21 07:21 Resp 17 09/05/21 07:21 BP 100/77 09/05/21 07:21 Pulse Ox 95 09/05/21 04:00 09/04/21 09/05/21 09/05/21 22:59 06:59 14:59 Intake Total 478 / 1244.833 240 / 1484.833 Output Total 1325 / 2325 650 / 2975 400 / 400 Balance -847 / -1080.167 -410 / -1490.167 -400 / -400 Physical Exam Narrative: EXAM NARRATIVE: elderly, chronically ill appearing, obese male with BMI of 37 Const: COMMON NORMALS: no acute distress, patient oriented x3 and alert HENMT: COMMON NORMALS: normocephalic and atraumatic HEAD & SCALP: normocephalic and atraumatic Neck/C-Spine: COMMON NORMALS: supple Resp: COMMON NORMALS: normal respiratory effort AUSCULTATION: rhonchi lower bilaterally Cardio: OTHER: irregularly irregular rate 90-110/min GI: OTHER: obese, soft, NT, ND Extremity: COMMON NORMALS: no calf tenderness OTHER: 1 plus pedal edema bilaterally Neuro: COMMON NORMALS: patient oriented x3 SENSORIUM/ORIENTATION: Yes alert Psych: COMMON NORMALS: mental status grossly normal Skin: COMMON NORMALS: no rashes or lesions noted and no wounds GENERAL SKIN EXAM: no rashes or lesions noted Data : 09/05/21 03:20 09/05/21 03:20 A&P Assessment and plan (1) Acute anemia: Patient is 72 year old male who presented with weakness, fatigue and abnormal labs Noted to be severely anemic with hemoglobin of 5.3 and hematocrit of 18.5 as compared to previous labs with hemoglobin of 9 on 04/09/20. Patient has received 3 units PRBC since admission- hemoglobin NOW 8.0- monitor closely- per cardiology recommendation- will stop plavix and aspirin for now No active bleeding Continue pepcid May require scope to evaluate for GI source of blood loss- however, due to acute issues including rapid a fib and NATALIE, hyperkalemia- will hold for now and may be obtained as outpatient Status: Acute (2) Acute decompensated heart failure: Patient noted to have signs of fluid overload on imaging with elevated BNP. Improved with IV lasix and now on PO lasix ECHO obtained and reviewed with EF of 45 percent and moderate aortic stenosis and moderate mitral regurgitation Resumed lisinopril at lower dose Will need outpatient cardiology F/U Status: Acute (3) Atrial fibrillation with RVR: Patient off cardizem infusion since 09/04/21 HR between 90-110, irregular- will add PO cardizem Continue PO metoprolol Status: Acute (4) Atherosclerosis of coronary artery of [place] heart with stable angina pectoris: Has h/o CAD. Has been following with cardiology On home meds of aspirin, statin and beta shorty Telemetry Status: Acute Qualifiers: Coronary Disease-Associated Artery/Lesion type: [place] artery Qualified Code(s): I25.118 - Atherosclerotic heart disease of [place] coronary artery with other forms of angina pectoris (5) Atrial fibrillation: Status: Acute Qualifiers: Atrial fibrillation type: paroxysmal Qualified Code(s): I48.0 - Paroxysmal atrial fibrillation (6) Exertional dyspnea: Likely multifactorial with severe anemia, as well as baseline COPD and new onset CHF exacerbation Has elevated BNP with new findings of cardiomegaly on CXR- given lasix x 1 post transfusion of 2 units of PRBC ECHO noted with EF of 45 percent, mild hypokinesis of LV, moderate aortic stenosis and moderate mitral regurg Continue supplemental oxygen, resume nebs/inhalers Lasix PO started Resume lisinopril Will need cardiology F/U as outpatient Status: Acute (7) NATALIE (acute kidney injury): Noted to have elevated serum creatinine of 2.2 which is elevated compared to previous normal level 04/08/20 Improved to baseline with serum creatinine of 1.0 Lisinopril was held- will resume at lower dose. Monitor renal function, I/O closely Status: Acute (8) Hyponatremia: Serum sodium 126 on arrival Likely related to NATALIE and possible CHF Has improved to 133 Status: Acute (9) Elevated troponin: Initial troponin 247 No acute EKG changes of ischemia noted Repeat 2 hour troponin is 248 Likely non cardiac. May be related to renal failure Status: Acute (10) Hyperkalemia: Potassium 5.6- has now returned to normal range Status: Acute (11) Acute exacerbation of chronic obstructive pulmonary disease: Continue nebs and solumedrol Monitor He is a smoker with baseline COPD Status: Acute Attestations Medical Necessity Statement*: Patient requires ongoing hospitalization for management of acute medical issues including anemia, decompensated CHF, Atrial fib with RVR and NATALIE Coding Level of Care Code Acute Infection Control Practitioner for Reginaldg Fwd History Detailed Exam Detailed Medical Decision Making Moderate Complexity Diagnoses Acute anemia D64.9 Acute decompensated heart failure I50.9 Atrial fibrillation with RVR I48.91 Atherosclerosis of coronary artery of [place] heart with stable angina pectoris I25.118 Coronary Disease-Associated Artery/Lesion type: [place] artery Atrial fibrillation I48.0 Atrial fibrillation type: paroxysmal Exertional dyspnea R06.00 NATALIE (acute kidney injury) N17.9 Hyponatremia E87.1 Elevated troponin R77.8 Hyperkalemia E87.5 Acute exacerbation of chronic obstructive pulmonary disease J44.1
[2021-09-05] MEDS: polyethylene glycol 3350 Pkt 17 gm PO (08:38)
[2021-09-05] MEDS: nicotine 21 mg Patch 1 PATCH TRANSDERMA (08:38)
[2021-09-05] MEDS: digoxin 125 mcg Tablet PO (08:38)
[2021-09-05] MEDS: FUROsemide 40 mg Tablet PO (08:39)
[2021-09-05] MEDS: cholecalciferol (vitamin D3) 1,000 unit Tablet 1000 UNIT PO (08:39)
[2021-09-05] MEDS: dilTIAZem 30 mg Tablet PO (08:39)
[2021-09-05] MEDS: docusate sodium 100 mg Capsule PO ×2 (08:39→17:18)
[2021-09-05] MEDS: multivitamin therapeutic Tablet 1 TAB PO (08:39)
[2021-09-05] MEDS: lisinopril 5 mg Tablet PO (08:39)
[2021-09-05] MEDS: guaiFENesin 600 mg Tablet PO ×2 (08:39→17:18)
[2021-09-05] MEDS: ipratropium 0.5 mg/2.5 mL Neb INHALATION ×2 (09:38→21:11)
[2021-09-05] MEDS: budesonide 0.5 mg/2 mL Neb INHALATION ×2 (09:38→21:11)
--- NOTE | 2021-09-05 09:43 | PC.SOCIAL ---
IMM Update Pg. 2 of IMM updated and reviewed with patient. Copy provided.
[2021-09-05 10:30] LABS: Digoxin < 0.3 ng/mL (0.6-1.2)
[2021-09-05] MEDS: dilTIAZem ER (24HR) 180 mg Capsule PO (12:39)
--- NOTE | 2021-09-05 14:42 | PM.PN ---
Subjective Subjective: Interval history: Heart rate is not well controlled otherwise denies shortness of breath or chest pain. Medications: Reviewed: Yes Vitals/I&O/Wt Last Vital Signs Temp 98.9 F 09/05/21 07:21 Pulse 84 09/05/21 14:39 Resp 16 09/05/21 09:35 BP 100/77 09/05/21 07:21 Pulse Ox 97 09/05/21 09:38 09/04/21 09/05/21 09/05/21 22:59 06:59 14:59 Intake Total 478 / 1244.833 240 / 1484.833 360 / 360 Output Total 1325 / 2325 650 / 2975 1200 / 1200 Balance -847 / -1080.167 -410 / -1490.167 -840 / -840 Physical Exam Narrative: EXAM NARRATIVE: GENERAL: Patient is awake oriented heart to NECK: No jugular vein distension. HEENT: No cyanosis. No icterus. No pallor. HEART: Irregularly irregular S1 and S2. 1/8 sys murmur, rub or gallop. LUNGS: Decreased breath sounds bilaterally with expiratory wheeze ABDOMEN: Protuberant, nontender and distended. Positive bowel sounds. No guarding, rebound or tenderness. CENTRAL NERVOUS SYSTEM: Grossly nonfocal. Data : 09/05/21 03:20 09/05/21 03:20 A&P Assessment and plan (1) Elevated troponin: Most likely due to underlying coronary artery disease and demand ischemia in the face of acute anemia, patient denies bleeding per rectum but not a good historian he was on anticoagulation and antiplatelet therapy. Unfortunately continue to smoke he told me he has just quit. At this point we will manage him medically, he is getting transfused we will keep hemoglobin above 9, isosorbide mononitrate will be added. Will avoid anticoagulation. We will hold aspirin and Plavix as well. We will ask for echo to assess LV function and wall motion abnormality. Due to severe anemia and possible bleed we will continue to manage him medically continue beta-shorty aspirin statin Continue to manage medically, at some point he may will be needing a stress test, I will ask for echocardiogram to assess LV function and wall motion normality. Status: Acute (2) Acute anemia: Status post transfusion hemoglobin is 8.0 stable Status: Acute (3) Ischemic cardiomyopathy: Stable medically continue current regimen Status: Acute (4) Atrial fibrillation: I will switch patient to 180 mg of Cardizem and see if I can control his heart rate. Status: Acute Qualifiers: Atrial fibrillation type: paroxysmal Qualified Code(s): I48.0 - Paroxysmal atrial fibrillation (5) NATALIE (acute kidney injury): Normalizing of renal function now. Status: Acute Attestations Medical Necessity Statement*: Patient require continuation of hospitalization for above defined care. Coding Level of Care Code Established Pt Acute Finance Vice President for Cipriano Adams Patient Type Established History Detailed Exam Detailed Medical Decision Making Moderate Complexity Diagnoses Elevated troponin R77.8 Acute anemia D64.9 Ischemic cardiomyopathy I25.5 Atrial fibrillation I48.0 Atrial fibrillation type: paroxysmal NATALIE (acute kidney injury) N17.9
[2021-09-05] MEDS: famotidine 20 mg Tablet 40 MG PO (17:18)
[2021-09-05] MEDS: atorvastatin 40 mg Tablet PO (17:18)
[2021-09-05] MEDS: sertraline 50 mg Tablet PO (17:19)
--- NOTE | 2021-09-05 19:32 | PC.NURSE ---
Shift Note Frequent safety and comfort rounds continue. Orders and/or nursing care completed as indicated. Patient monitored for response to intervention and treatment(s). Education provided includes deep breathing, cardizem, digoxin and solu-medrol. Patient and/or sales representative groceries verbalizes understanding. Will continue to monitor.
[2021-09-05] MEDS: tizanidine 4 mg Tablet 2 MG PO (20:46)
[2021-09-06] VITALS (42 sets, daily range): BP systolic 87–142; BP diastolic 60–94; PULSE 71–120; RESP 11–30; TEMP 36.6–37.1; O2SAT 81–98
[2021-09-06] MEDS: dilTIAZem ER (24HR) 180 mg Capsule PO (08:17)
[2021-09-06] MEDS: cholecalciferol (vitamin D3) 1,000 unit Tablet 1000 UNIT PO (08:17)
[2021-09-06] MEDS: nicotine 21 mg Patch 1 PATCH TRANSDERMA (08:17)
[2021-09-06] MEDS: lisinopril 5 mg Tablet PO (08:18)
[2021-09-06] MEDS: docusate sodium 100 mg Capsule PO ×2 (08:18→18:02)
[2021-09-06] MEDS: multivitamin therapeutic Tablet 1 TAB PO (08:18)
[2021-09-06] MEDS: FUROsemide 40 mg Tablet PO (08:18)
[2021-09-06] MEDS: guaiFENesin 600 mg Tablet PO ×2 (08:18→18:02)
[2021-09-06] MEDS: metoprolol succinate ER (24 HR) 50 mg Tablet PO (08:18)
[2021-09-06] MEDS: polyethylene glycol 3350 Pkt 17 gm PO (08:19)
[2021-09-06] MEDS: ipratropium 0.5 mg/2.5 mL Neb INHALATION ×2 (10:07→19:38)
[2021-09-06] MEDS: budesonide 0.5 mg/2 mL Neb INHALATION ×2 (10:07→19:38)
--- NOTE | 2021-09-06 10:21 | XR_ITS ---
WS: [id number] Exam: XR chest 1V portable [id number] Date/Time of Exam: 09/06/2021 10:21 AM Reason For Exam: confusion, RLL equivocal on initial cxr Comparison 09/02/2021. The lungs are fully expanded and clear. The heart is top limits normal size. No pleural effusion or p neumothorax. The mediastinum and bony thorax are unremarkable. XR/XR chest 1V portable [id number] IMPRESSION: 1. No acute cardiopulmonary finding.
[2021-09-06 11:01] LABS: Mean Corpuscular HGB Conc 29.6 g/dL (30.0-36.0); Mean Corpuscular Hemoglobin 22.9 pg (28.0-34.0); Mean Corpuscular Volume 77.4 fl (80-94); Mean Platelet Volume 10.1 fL (7.4-10.4); Platelet Count 270 10^3/cmm (130-400); Red Blood Count 3.49 10^6/uL (4.1-5.3); Red Cell Distribution Width 18.8 % (12.1-15.1); White Blood Count 10.8 10^3/uL (4.0-10.0)
[2021-09-06 11:45] LABS: Absolute Segmented Neutrophil 9.8 10/cmm (1.6-7.1); Eosinophils 0 %; Lymphocytes 6 %; Lymphocytes Absolute 0.6 10^3/cmm (1.2-3.4); Monocytes Absolute 0.3 10^3/cmm (0.1-0.6); Segmented Neutrophils 91 %; Total Cells Counted 100 (0-100)
[2021-09-06 11:46] LABS: Absolute Neutrophil 9.8 10^3/cmm (1.4-6.5); Anisocytosis 1+; Hypochromasia 1+; Ovalocytes 1+; Platelet Estimate Normal (Normal); Poikilocytosis 1+
--- NOTE | 2021-09-06 12:09 | FL_ITS ---
WS: [id number] Exam: FL barium swallow modifd [id number] Date/Time of Exam: 09/06/2021 2:55 PM Reason For Exam: Oropharyngeal dysphagia Fluoroscopy time: minutes Modified barium swallow was performed in conjunction with the speech therapy service. Swallowing function at the level of the oropharynx was grossly normal. The patient experienced poolin g of thin liquid barium solutions into the vallecula and piriform sinus. There was penetration into t he laryngeal inlet when the patient ingested thin liquid and nectar consistency barium foodstuffs. Th e patient tolerated solid barium mixture foodstuffs without complication. The patient swallowed the b arium pill without significant difficulty. FL/FL barium swallow modifd [id number] IMPRESSION: 1. The patient experienced penetration into the laryngeal inlet when ingesting thin liquid and nectar consistency barium foodstuffs. A separate report of recommendations and findings will follow from the speech t herapy service.
--- NOTE | 2021-09-06 12:09 | PM.PN ---
Subjective Subjective: Interval history: Sleeping, wakes up to shoulder squeeze. Reports he is feeling slightly better. He states has been getting some cough. Denies being short of breath currently. No chest pain. He is reported to have been thinking he is at home, seeing his dog earlier. Currently knows he is in the hospital. Has some trouble recalling the year, but states the month correctly. Tells me his year and age correctly. Vitals/I&O/Wt Last Vital Signs Temp 98.7 F 09/06/21 10:34 Pulse 106 H 09/06/21 10:34 Resp 18 09/06/21 10:34 BP 118/77 09/06/21 10:34 Pulse Ox 93 09/06/21 10:16 09/05/21 09/06/21 09/06/21 22:59 06:59 14:59 Intake Total 870 / 1590 100 / 1690 236 / 236 Output Total 780 / 1980 500 / 2480 250 / 250 Balance 90 / -390 -400 / -790 -14 / -14 Physical Exam Const: COMMON NORMALS: no acute distress GENERAL APPEARANCE: cooperative and disheveled NUTRITIONAL APPEARANCE: obese HENMT: COMMON NORMALS: oropharynx normal Neck/C-Spine: COMMON NORMALS: no JVD Resp: COMMON NORMALS: normal respiratory effort and clear to auscultation bilaterally AUSCULTATION: clear to auscultation bilaterally Cardio: COMMON NORMALS: no JVD, regular rhythm, S1 normal heart sound present, S2 normal heart sound present and No murmurs present (Cardio) RHYTHM: regular rhythm HEART SOUNDS: S1 normal heart sound present and S2 normal heart sound present GI: COMMON NORMALS: Normal to inspection, nondistended, normoactive bowel sounds present, Soft to palpation and non-tender PALPATION: Yes Soft to palpation Extremity: COMMON NORMALS: no joint enlargement and no pedal edema Neuro: COMMON NORMALS: moves all extremities Skin: COMMON NORMALS: no rashes or lesions noted GENERAL SKIN EXAM: no rashes or lesions noted Data : 09/06/21 10:44 09/05/21 03:20 A&P Assessment and plan (1) Acute anemia: Hemoglobin down to 8 yesterday, today lab unavailable, recheck. Aspirin and Plavix have been on hold. Given decreasing hemoglobin will change from famotidine to PPI. Patient is 72 year old male who presented with weakness, fatigue and abnormal labs Noted to be severely anemic with hemoglobin of 5.3 and hematocrit of 18.5 as compared to previous labs with hemoglobin of 9 on 04/09/20. Patient has received 3 units PRBC since admission Consideration given to possible endoscopy, although this was so far deferred due to A. fib RVR, NATALIE, electrolyte abnormality. Follow-up renal function, electrolytes. Status: Acute (2) Acute decompensated heart failure: Was transitioned from IV Lasix to p.o. Continue. Patient noted to have signs of fluid overload on imaging with elevated BNP. ECHO obtained and reviewed with EF of 45 percent and moderate aortic stenosis and moderate mitral regurgitation Resumed lisinopril at lower dose Will need outpatient cardiology F/U Status: Acute (3) Atrial fibrillation with RVR: Heart rate gets worse with exertion. At rest staying mostly below 110. Continue metoprolol, Cardizem p.o. Patient off cardizem infusion since 09/04/21 Status: Acute (4) Atherosclerosis of coronary artery of [place] heart with stable angina pectoris: Cardiology recommendations appreciated. Continue medical therapy. Has h/o CAD. On home meds of aspirin, statin and beta shorty Telemetry Status: Acute Qualifiers: Coronary Disease-Associated Artery/Lesion type: [place] artery Qualified Code(s): I25.118 - Atherosclerotic heart disease of [place] coronary artery with other forms of angina pectoris (5) Atrial fibrillation: Status: Acute Qualifiers: Atrial fibrillation type: paroxysmal Qualified Code(s): I48.0 - Paroxysmal atrial fibrillation (6) Exertional dyspnea: On more oxygen than usual at 3 L nasal cannula currently compared to 2 L usually. Also reported to have some confusion thinking he is at home, seeing his dog. Possible delirium. We will additionally assess by chest x-ray, speech therapy, MBS given equivocal finding in right lower lobe, and he reports cough, consideration of possible aspiration. Likely also contribution from severe anemia, as well as baseline COPD and new onset CHF exacerbation ECHO noted with EF of 45 percent, mild hypokinesis of LV, moderate aortic stenosis and moderate mitral regurg Status: Acute (7) NATALIE (acute kidney injury): Follow-up chemistries for renal function. Status: Acute (8) Hyponatremia: Improved. Follow-up chemistry. Serum sodium 126 on arrival Likely related to NATALIE and possible CHF Status: Acute (9) Elevated troponin: Continue cardiac medicines. Appreciate cardiology consultation. Troponin [id number] No acute EKG changes of ischemia noted Likely non cardiac. May be related to renal failure Status: Acute (10) Hyperkalemia: Resolved. Status: Acute (11) Acute exacerbation of chronic obstructive pulmonary disease: He is still coughing. Diminished air entry on exam. Continue steroid for now, continue nebs. With noted confusion, decrease steroid dose. Oxygen support. States he has quit smoking as of coming to the hospital. Encouraged him to keep up with cessation. Continue nicotine patch, add nicotine lozenges. He is a smoker with baseline COPD Status: Acute Additional A&P Information Possible delirium: Possible infection related acute encephalopathy with delirium. Confusion today noted, with him stating that he thought he was at home, describing his home furniture, seeing his dog. Assess UA, chest x-ray. We will come down on Solu-Medrol dose. Seems to be doing better at the time of my visit. Reorient. Monitor. Attestations Medical Necessity Statement*: Continue admission for assessment management of acute delirium, assessment of acute anemia. Coding Level of Care Code Acute [place] Worker for Chg Fwd Diagnoses Acute anemia D64.9 Acute decompensated heart failure I50.9 Atrial fibrillation with RVR I48.91 Atherosclerosis of coronary artery of [place] heart with stable angina pectoris I25.118 Coronary Disease-Associated Artery/Lesion type: [place] artery Atrial fibrillation I48.0 Atrial fibrillation type: paroxysmal Exertional dyspnea R06.00 NATALIE (acute kidney injury) N17.9 Hyponatremia E87.1 Elevated troponin R77.8 Hyperkalemia E87.5 Acute exacerbation of chronic obstructive pulmonary disease J44.1
[2021-09-06 14:56] LABS: Add Urine Microscopic? NO; Charge for UA Resulting for Rev
[2021-09-06 15:25] LABS: Bilirubin Urine Neg (Negative); Blood Urine Neg (Negative); Glucose Urine UA Norm (Normal); Ketones Urine Negative (Negative); Leukocyte Esterase Urine Negative (Negative); Nitrate Urine Negative (Negative); Protein Urine Neg (Negative); Urine Appearance Clear (CLEAR); Urine Color Yellow (Yellow); Urobilinogen Urine Norm (Negative); pH Urine 5 (5-7)
[2021-09-06] MEDS: pantoprazole 40 mg SDV IVP (15:59)
[2021-09-06] MEDS: sertraline 50 mg Tablet PO (18:02)
[2021-09-06] MEDS: atorvastatin 40 mg Tablet PO (18:02)
--- NOTE | 2021-09-06 18:53 | PM.PN ---
Subjective Subjective: Interval history: Sitting in the chair feeling better when I saw him his heart rate went up otherwise he remains within normal limit around 80s to 90s but underlying A. fib Medications: Reviewed: Yes Vitals/I&O/Wt Last Vital Signs Temp 98.7 F 09/06/21 10:34 Pulse 106 H 09/06/21 10:34 Resp 18 09/06/21 10:34 BP 118/77 09/06/21 10:34 Pulse Ox 93 09/06/21 10:16 09/06/21 09/06/21 09/06/21 06:59 14:59 22:59 Intake Total 100 / 1690 476 / 476 Output Total 500 / 2480 250 / 250 Balance -400 / -790 226 / 226 Physical Exam Narrative: EXAM NARRATIVE: GENERAL: Patient is awake oriented heart to NECK: No jugular vein distension. HEENT: No cyanosis. No icterus. No pallor. HEART: Irregularly irregular S1 and S2. 1/8 sys murmur, rub or gallop. LUNGS: Decreased breath sounds bilaterally with expiratory wheeze ABDOMEN: Protuberant, nontender and distended. Positive bowel sounds. No guarding, rebound or tenderness. CENTRAL NERVOUS SYSTEM: Grossly nonfocal. Data : 09/06/21 10:44 09/05/21 03:20 A&P Assessment and plan (1) Elevated troponin: Most likely due to underlying coronary artery disease and demand ischemia in the face of acute anemia, patient denies bleeding per rectum but not a good historian he was on anticoagulation and antiplatelet therapy. Unfortunately continue to smoke he told me he has just quit. At this point we will manage him medically, he is getting transfused we will keep hemoglobin above 9, isosorbide mononitrate will be added. Will avoid anticoagulation. We will hold aspirin and Plavix as well. We will ask for echo to assess LV function and wall motion abnormality. Due to severe anemia and possible bleed we will continue to manage him medically continue beta-shorty aspirin statin Continue to manage medically, at some point he may will be needing a stress test, I will ask for echocardiogram to assess LV function and wall motion normality. Continue to manage conservatively most likely type II, echocardiogram showed moderate reduced ejection fraction no prior echo present there was global hypokinesis, patient has moderate aortic stenosis as well Status: Acute (2) Acute anemia: Remained stable continue to Status: Acute (3) Ischemic cardiomyopathy: Will continue to manage medically due to recent bleeding anemia. Patient is high risk for intervention or angiogram due to bleeding Status: Acute (4) Atrial fibrillation: Will continue to optimize medicine will further increase Cardizem Status: Acute Qualifiers: Atrial fibrillation type: paroxysmal Qualified Code(s): I48.0 - Paroxysmal atrial fibrillation (5) NATALIE (acute kidney injury): Normalizing of renal function now. Status: Acute Attestations Medical Necessity Statement*: Patient require continuation hospitalization for above defined care Coding Level of Care Code Established Pt Acute Management Trainee for g Fwd Patient Type Established History Detailed Exam Detailed Medical Decision Making Moderate Complexity Diagnoses Elevated troponin R77.8 Acute anemia D64.9 Ischemic cardiomyopathy I25.5 Atrial fibrillation I48.0 Atrial fibrillation type: paroxysmal NATALIE (acute kidney injury) N17.9
[2021-09-06] MEDS: tizanidine 4 mg Tablet 2 MG PO (20:10)
[2021-09-07] VITALS (52 sets, daily range): BP systolic 103–130; BP diastolic 46–79; PULSE 73–122; RESP 12–35; TEMP 36.6; O2SAT 73–98
[2021-09-07] MEDS: pantoprazole 40 mg SDV IVP ×2 (00:49→13:26)
[2021-09-07 03:30] LABS: Basophils % 0.1 %; Hematocrit 26.7 % (42.0-52.0); Hemoglobin 7.8 g/dL (11.7-16.6); Lymphocytes # 0.7 10^3/uL (0.8-4.8); Mean Corpuscular HGB Conc 29.2 g/dL (30.0-36.0); Mean Corpuscular Hemoglobin 22.9 pg (28.0-34.0); Mean Corpuscular Volume 78.3 fl (80-94); Mean Platelet Volume 10.5 fL (7.4-10.4); Monocytes # 0.5 10^3/uL (0.2-0.9); Neutrophils # 8.72 10^3/uL (1.8-7.7); Neutrophils % 86.9 %; Nucleated Red Blood Cells % 0.3 %; Platelet Count 240 10^3/cmm (130-400); Red Blood Count 3.41 10^6/uL (4.1-5.3); Red Cell Distribution Width 19.2 % (12.1-15.1)
[2021-09-07 03:53] LABS: Alanine Aminotransferase 117 U/L (0-41); Albumin Level 3.5 g/dL (3.5-5.2); Alkaline Phosphatase 71 IU/L (40-130); Anion Gap 14.6 (5-19); Aspartate Amino Transferase 29 U/L (0-40); Blood Urea Nitrogen 32 mg/dL (8-23); Carbon Dioxide 25 mmol/L (22-29); Chloride 96 mmol/L (98-107); Creatinine Clr Calc Pharmacy 95.9119; Globulin 2.3 g/dL (1.3-4.6); Glucose 148 mg/dL (65-115); Osmolality Calculated 282 mOsm/kg (285-295); Potassium 4.6 mmol/L (3.5-5.1); Sodium 131 mmol/L (136-145); Total Bilirubin 0.5 mg/dL (0.15-1.2); Total Protein 5.8 g/dL (6.6-8.7)
--- NOTE | 2021-09-07 05:14 | PC.NURSE ---
Shift Note Frequent safety and comfort rounds continue. Orders and/or nursing care completed as indicated. Patient monitored for response to intervention and treatment(s). Education provided includes keeping leads on to allow proper monitoring. Patient and/or construction sales representative verbalizes understanding but needs reinforcement. Will continue to monitor.
--- NOTE | 2021-09-07 06:04 | PC.NURSE ---
Patient attempting to remove telemetry leads and stickers a few times this shift. Denies pain. Teaching done to let patient know why monitoring is necessary. Patient states understanding however needs re-inforcement. Will continue to monitor.
[2021-09-07] MEDS: FUROsemide 40 mg Tablet PO (08:07)
[2021-09-07] MEDS: guaiFENesin 600 mg Tablet PO ×2 (08:08→17:52)
[2021-09-07] MEDS: metoprolol succinate ER (24 HR) 50 mg Tablet PO (08:08)
[2021-09-07] MEDS: cholecalciferol (vitamin D3) 1,000 unit Tablet 1000 UNIT PO (08:09)
[2021-09-07] MEDS: multivitamin therapeutic Tablet 1 TAB PO (08:10)
[2021-09-07] MEDS: lisinopril 5 mg Tablet PO (08:10)
[2021-09-07] MEDS: dilTIAZem ER (24HR) 240 mg Capsule PO (08:10)
[2021-09-07] MEDS: nicotine 21 mg Patch 1 PATCH TRANSDERMA (08:11)
[2021-09-07] MEDS: docusate sodium 100 mg Capsule PO (08:17)
--- NOTE | 2021-09-07 08:41 | PC.CHAP ---
Pastoral Care Encounter/Spiritual Assessment Type of Contact [] Declined walking dragline operator visit [] Patient/Family/Request visit [] Outpatient visit [] Follow-up visit [] Physician referral [] Code/Alert [x] Routine visit [] Staff referral [] Actively dying [] Patient sleeping [] Family support [] [] Out of room [] Palliative care [] [] Receiving care in room [] Pre-surgical visit [] Trauma [] Long length of stay [] ICU visit [] Other: Relational/Emotional Strength [] Patient feels connected with others/family/visitors/staff [] Distress [] Loneliness/isolation [] Abandonment Spirituality of Patient [x] Person of Pema [] Attends Advent of their Pema [x] Believes in Prayer [] Reads Bible or Judaism materials [] There are Spiritual issues to be addressed Pipe Coverer And Insulator Interventions [x] Prayer [] Active listening [] Non-anxious presence [] Spiritual/emotional support [] Crisis/trauma care [] Spiritual counseling [] Bereavement support [] Provided bereavement packet [] Provided Bible/devotional materials [] Provided toy/stuffed animal, coloring book to patient or family member [] Provided Communion [] Anointing/[place] [] Salvation [] Completed spiritual assessment [] Other: Impact on Illness or Injury [] Angry [] Fearful [] Anxious [] Often cries [] Exhaustion [] Unable to work [] Unable to attend sikhism [] Unable to walk/stand [] Unable to read [] Unable to drive [] Unable to eat/drink [] Unable to sleep [] Unable to be with family [] Patient intubated [] Other: Summary Has , son, and daughter and 2 grandchildren. He grew up in [place] but moved to [place] because his son was living here. He was calling his when walking dragline operator came into the room. He said she does not visit because they do not have have a car. He is a person of pema. Time spent with patient 10 m
--- NOTE | 2021-09-07 10:13 | PC.SOCIAL ---
IMM Update pg 2 of IMM updated and reviewed w/ patient. Copy provided.
[2021-09-07] MEDS: metoprolol succinate ER (24 HR) 25 mg Tablet PO (10:55)
--- NOTE | 2021-09-07 11:51 | PM.PN ---
Subjective Subjective: Interval history: Denies pain or discomfort. No trouble breathing. Today he is more alert and interactive. Per discussion with his , he occasionally gets episodes of confusion at home which are not new. Vitals/I&O/Wt Last Vital Signs Temp 98 F 09/07/21 04:37 Pulse 115 H 09/07/21 09:00 Resp 18 09/07/21 05:13 BP 128/54 09/07/21 05:13 Pulse Ox 88 L 09/07/21 05:13 09/06/21 09/07/21 09/07/21 22:59 06:59 14:59 Intake Total 336 / 812 338 / 338 Output Total 250 / 500 377 / 877 150 / 150 Balance 86 / 312 -377 / -65 188 / 188 Weight last 48 hrs Weight 122.924 kg Physical Exam Const: COMMON NORMALS: no acute distress GENERAL APPEARANCE: cooperative and disheveled NUTRITIONAL APPEARANCE: obese HENMT: COMMON NORMALS: oropharynx normal Neck/C-Spine: COMMON NORMALS: no JVD Resp: COMMON NORMALS: normal respiratory effort and clear to auscultation bilaterally AUSCULTATION: clear to auscultation bilaterally Cardio: COMMON NORMALS: no JVD, regular rhythm, S1 normal heart sound present, S2 normal heart sound present and No murmurs present (Cardio) RHYTHM: regular rhythm HEART SOUNDS: S1 normal heart sound present and S2 normal heart sound present GI: COMMON NORMALS: Normal to inspection, nondistended, normoactive bowel sounds present, Soft to palpation and non-tender PALPATION: Yes Soft to palpation Extremity: COMMON NORMALS: no joint enlargement and no pedal edema Neuro: COMMON NORMALS: moves all extremities Skin: COMMON NORMALS: no rashes or lesions noted GENERAL SKIN EXAM: no rashes or lesions noted Data : 09/07/21 02:28 09/07/21 02:28 A&P Assessment and plan (1) Atrial fibrillation with RVR: This morning A. fib with RVR, heart rates into 120s. Cardizem dose was increased this morning to 240 mg ER. Continue telemetry monitoring. Appreciate cardiology recommendations. Continue metoprolol Status: Acute (2) Acute anemia: Hemoglobin was slightly decreased to 7.8. Aspirin and Plavix have been on hold. Changed from famotidine to PPI. If hemoglobin stays out, may need additional outpatient evaluation, otherwise may need to consider endoscopic evaluation prior to discharge. Patient is 72 year old male who presented with weakness, fatigue and abnormal labs Noted to be severely anemic with hemoglobin of 5.3 and hematocrit of 18.5 as compared to previous labs with hemoglobin of 9 on 04/09/20. Patient has received 3 units PRBC since admission Status: Acute (3) Acute decompensated heart failure: Improved. Was transitioned from IV Lasix to p.o. Continue. Patient noted to have signs of fluid overload on imaging with elevated BNP. ECHO obtained and reviewed with EF of 45 percent and moderate aortic stenosis and moderate mitral regurgitation Resumed lisinopril at lower dose Will need outpatient cardiology F/U Status: Acute (4) Atherosclerosis of coronary artery of [place] heart with stable angina pectoris: Cardiology recommendations appreciated. Continue medical therapy. Has h/o CAD. On home meds of aspirin, statin and beta shorty Telemetry Status: Acute Qualifiers: Coronary Disease-Associated Artery/Lesion type: [place] artery Qualified Code(s): I25.118 - Atherosclerotic heart disease of [place] coronary artery with other forms of angina pectoris (5) Atrial fibrillation: Status: Acute Qualifiers: Atrial fibrillation type: paroxysmal Qualified Code(s): I48.0 - Paroxysmal atrial fibrillation (6) Exertional dyspnea: On more oxygen than usual at 3 L nasal cannula currently compared to 2 L usually. Also reported to have some confusion thinking he is at home, seeing his dog. Possible delirium. We will additionally assess by chest x-ray, speech therapy, MBS given equivocal finding in right lower lobe, and he reports cough, consideration of possible aspiration. Likely also contribution from severe anemia, as well as baseline COPD and new onset CHF exacerbation ECHO noted with EF of 45 percent, mild hypokinesis of LV, moderate aortic stenosis and moderate mitral regurg Status: Acute (7) NATALIE (acute kidney injury): Follow-up chemistries for renal function. Status: Acute (8) Hyponatremia: Improved. Follow-up chemistry. Serum sodium 126 on arrival Likely related to NATALIE and possible CHF Status: Acute (9) Elevated troponin: Continue cardiac medicines. Appreciate cardiology consultation. Troponin [id number] No acute EKG changes of ischemia noted Likely non cardiac. May be related to renal failure Status: Acute (10) Hyperkalemia: Resolved. Status: Acute (11) Acute exacerbation of chronic obstructive pulmonary disease: He is still coughing. Diminished air entry on exam. Continue steroid for now, continue nebs. With noted confusion, decrease steroid dose. Oxygen support. States he has quit smoking as of coming to the hospital. Encouraged him to keep up with cessation. Continue nicotine patch, add nicotine lozenges. He is a smoker with baseline COPD Status: Acute Additional A&P Information Possible delirium: reports episodes of occasional confusion at home. No suggestion of acute infection. Chest x-ray unremarkable, although with speech therapy is found to have a risk of aspiration, recommendations for mechanical soft diet and nectar thick liquids discussed with him and his . UA not suggestive of infection. Solu-Medrol dose was decreased. Today appears to be oriented, more alert and interactive. Attestations Medical Necessity Statement*: Continue admission for optimization of control of A. fib with RVR, continued PPI with consideration of follow-up of outpatient versus inpatient endoscopic evaluation for acute anemia. Coding Level of Care Code Acute Real Estate Attorney for g Fwd Diagnoses Atrial fibrillation with RVR I48.91 Acute anemia D64.9 Acute decompensated heart failure I50.9 Atherosclerosis of coronary artery of [place] heart with stable angina pectoris I25.118 Coronary Disease-Associated Artery/Lesion type: [place] artery Atrial fibrillation I48.0 Atrial fibrillation type: paroxysmal Exertional dyspnea R06.00 NATALIE (acute kidney injury) N17.9 Hyponatremia E87.1 Elevated troponin R77.8 Hyperkalemia E87.5 Acute exacerbation of chronic obstructive pulmonary disease J44.1
[2021-09-07] MEDS: predniSONE 20 mg Tablet PO (13:26)
[2021-09-07] MEDS: atorvastatin 40 mg Tablet PO (17:52)
[2021-09-07] MEDS: sertraline 50 mg Tablet PO (17:52)
[2021-09-07] MEDS: budesonide 0.5 mg/2 mL Neb INHALATION (19:14)
[2021-09-07] MEDS: ipratropium 0.5 mg/2.5 mL Neb INHALATION (19:14)
--- NOTE | 2021-09-07 21:18 | PM.PN ---
Subjective Subjective: Interval history: Stable heart rate is not well controlled hemoglobin appear to be stable. Denies chest pain Medications: Reviewed: Yes Vitals/I&O/Wt Last Vital Signs Temp 98 F 09/07/21 20:00 Pulse 104 H 09/07/21 20:00 Resp 20 H 09/07/21 20:00 BP 118/71 09/07/21 20:00 Pulse Ox 93 09/07/21 20:00 09/07/21 09/07/21 09/07/21 06:59 14:59 22:59 Intake Total 698 / 698 460 / 1158 Output Total 377 / 877 350 / 350 450 / 800 Balance -377 / -65 348 / 348 10 / 358 Weight last 48 hrs Weight 271 lb Physical Exam Narrative: EXAM NARRATIVE: GENERAL: Patient is awake oriented heart to NECK: No jugular vein distension. HEENT: No cyanosis. No icterus. No pallor. HEART: Irregularly irregular S1 and S2. 1/8 sys murmur, rub or gallop. LUNGS: Decreased breath sounds bilaterally with expiratory wheeze ABDOMEN: Protuberant, nontender and distended. Positive bowel sounds. No guarding, rebound or tenderness. CENTRAL NERVOUS SYSTEM: Grossly nonfocal. Data : 09/07/21 02:28 09/07/21 02:28 A&P Assessment and plan (1) Elevated troponin: Most likely due to underlying coronary artery disease and demand ischemia in the face of acute anemia, patient denies bleeding per rectum but not a good historian he was on anticoagulation and antiplatelet therapy. Unfortunately continue to smoke he told me he has just quit. At this point we will manage him medically, he is getting transfused we will keep hemoglobin above 9, isosorbide mononitrate will be added. Will avoid anticoagulation. We will hold aspirin and Plavix as well. We will ask for echo to assess LV function and wall motion abnormality. Due to severe anemia and possible bleed we will continue to manage him medically continue beta-shorty aspirin statin Continue to manage medically, at some point he may will be needing a stress test, I will ask for echocardiogram to assess LV function and wall motion normality. Continue to manage conservatively most likely type II, echocardiogram showed moderate reduced ejection fraction no prior echo present there was global hypokinesis, patient has moderate aortic stenosis as well Continue conservative management Status: Acute (2) Acute anemia: Stable. Status: Acute (3) Ischemic cardiomyopathy: Continue conservative medical management patient appeared to be stable Status: Acute (4) Atrial fibrillation: Will increase Cardizem and beta-shorty. Status: Acute Qualifiers: Atrial fibrillation type: paroxysmal Qualified Code(s): I48.0 - Paroxysmal atrial fibrillation (5) NATALIE (acute kidney injury): Normalizing of renal function now. Status: Acute Attestations Medical Necessity Statement*: Patient require continuation hospitalization for above defined care Coding Level of Care Code Established Pt Acute Curriculum And Assessment Director for [facility] Fwd Patient Type Established History Detailed Exam Detailed Medical Decision Making Moderate Complexity Diagnoses Elevated troponin R77.8 Acute anemia D64.9 Ischemic cardiomyopathy I25.5 Atrial fibrillation I48.0 Atrial fibrillation type: paroxysmal NATALIE (acute kidney injury) N17.9
[2021-09-07] MEDS: tizanidine 4 mg Tablet 2 MG PO (22:14)
[2021-09-08] VITALS (22 sets, daily range): BP systolic 84–127; BP diastolic 46–80; PULSE 75–120; RESP 15–24; TEMP 36.6–37.7; O2SAT 90–98; BMI 34.8
[2021-09-08] MEDS: pantoprazole 40 mg SDV IVP ×2 (01:00→13:28)
[2021-09-08 03:53] LABS: Basophils % 0.1 %; Eosinophils % 0.1 %; Hematocrit 28.3 % (42.0-52.0); Hemoglobin 8.3 g/dL (11.7-16.6); Lymphocytes # 1.6 10^3/uL (0.8-4.8); Lymphocytes % 14.8 %; Mean Corpuscular HGB Conc 29.3 g/dL (30.0-36.0); Mean Corpuscular Volume 78.4 fl (80-94); Mean Platelet Volume 9.3 fL (7.4-10.4); Monocytes # 1.4 10^3/uL (0.2-0.9); Monocytes % 12.6 %; Neutrophils # 7.74 10^3/uL (1.8-7.7); Neutrophils % 71.7 %; Nucleated Red Blood Cells % 0.2 %; Platelet Count 223 10^3/cmm (130-400); Red Blood Count 3.61 10^6/uL (4.1-5.3); White Blood Count 10.8 10^3/uL (4.0-10.0)
[2021-09-08 04:13] LABS: Alanine Aminotransferase 135 U/L (0-41); Albumin Level 3.7 g/dL (3.5-5.2); Alkaline Phosphatase 69 IU/L (40-130); Anion Gap 11.1 (5-19); Aspartate Amino Transferase 47 U/L (0-40); Blood Urea Nitrogen 29 mg/dL (8-23); Calcium 8.7 mg/dL (8.5-10.5); Carbon Dioxide 30 mmol/L (22-29); Chloride 94 mmol/L (98-107); Globulin 1.9 g/dL (1.3-4.6); Glucose 121 mg/dL (65-115); Osmolality Calculated 279 mOsm/kg (285-295); Potassium 4.1 mmol/L (3.5-5.1); Sodium 131 mmol/L (136-145); Total Bilirubin 0.5 mg/dL (0.15-1.2); Total Protein 5.6 g/dL (6.6-8.7)
[2021-09-08] MEDS: budesonide 0.5 mg/2 mL Neb INHALATION ×2 (07:34→19:16)
[2021-09-08] MEDS: ipratropium 0.5 mg/2.5 mL Neb INHALATION ×2 (07:34→19:16)
[2021-09-08] MEDS: dilTIAZem ER (24HR) 240 mg Capsule PO (08:59)
[2021-09-08] MEDS: guaiFENesin 600 mg Tablet PO ×2 (08:59→16:59)
[2021-09-08] MEDS: lisinopril 5 mg Tablet PO (08:59)
[2021-09-08] MEDS: predniSONE 20 mg Tablet PO (08:59)
[2021-09-08] MEDS: cholecalciferol (vitamin D3) 1,000 unit Tablet 1000 UNIT PO (08:59)
[2021-09-08] MEDS: FUROsemide 40 mg Tablet PO (08:59)
[2021-09-08] MEDS: docusate sodium 100 mg Capsule PO (09:00)
[2021-09-08] MEDS: metoprolol succinate ER (24 HR) 50 mg Tablet 75 MG PO (09:00)
[2021-09-08] MEDS: nicotine 21 mg Patch 1 PATCH TRANSDERMA (09:01)
[2021-09-08] MEDS: multivitamin therapeutic Tablet 1 TAB PO (09:01)
--- NOTE | 2021-09-08 09:56 | P.PN_ITS ---
Subjective Subjective: Interval history: Status post heart rate is getting under control. No overnight event Medications: Reviewed: Yes Vitals/I&O/Wt Last Vital Signs Temp 98.8 F 09/08/21 08:00 Pulse 88 09/08/21 08:00 Resp 16 09/08/21 07:41 BP 109/64 09/08/21 09:27 Pulse Ox 97 09/08/21 07:41 09/07/21 09/08/21 09/08/21 22:59 06:59 14:59 Intake Total 700 / 1398 120 / 1518 Output Total 450 / 800 350 / 1150 Balance 250 / 598 -230 / 368 Weight last 48 hrs Weight 249 lb 9 oz Weight 271 lb Physical Exam Narrative: EXAM NARRATIVE: GENERAL: Patient is awake oriented heart to NECK: No jugular vein distension. HEENT: No cyanosis. No icterus. No pallor. HEART: Irregularly irregular S1 and S2. 1/8 sys murmur, rub or gallop. LUNGS: Decreased breath sounds bilaterally with expiratory wheeze ABDOMEN: Protuberant, nontender and distended. Positive bowel sounds. No gu arding, rebound or tenderness. CENTRAL NERVOUS SYSTEM: Grossly nonfocal. Data : 09/08/21 03:40 09/08/21 03:40 A&P Assessment and plan (1) Elevated troponin: Most likely due to underlying coronary artery disease and demand ischemia in the face of acute anemia, patient denies bleeding per rectum but not a good historian he was on anticoagulation and antiplatelet therapy. Unfortunately continue to smoke he told me he has just quit. At this point we will manage him medically, he is getting transfused we will keep hemoglobin above 9, isosorbide mononitrate will be added. Will avoid anticoagulation. We will hold aspirin and Plavix as well. We will ask for echo to assess LV function and wall motion abnormality. Due to severe anemia and possible bleed we will continue to manage him medically continue beta-shorty aspirin statin Continue to manage medically, at some point he may will be needing a stress test, I will ask for echocardiogram to assess LV function and wall motion normality. Continue to manage conservatively most likely type II, echocardiogram showed moderate reduced ejection fraction no prior echo present there was global hypokinesis, patient has moderate aortic stenosis as well Continue conservative management Continue to treat continue to treat medically. Patient is not on antiplatelet due to GI bleed. Troponin leak was most likely demand ischemia. Status: Acute (2) Acute anemia: Stable. Status: Acute (3) Ischemic cardiomyopathy: Continue conservative medical management patient appeared to be stable Status: Acute (4) Atrial fibrillation: We will further increase. Follow-up with cardiology as an outpatient. When allowed by medicine from GI bleed perspective patient can go back on Plavix at least. Status: Acute Qualifiers: Atrial fibrillation type: paroxysmal Qualified Code(s): I48.0 - Paroxysmal atrial fibrillation (5) NATALIE (acute kidney injury): Normalizing of renal function now. Status: Acute Attestations Medical Necessity Statement*: Patient require continuation of hospitalization for above defined care. 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
[2021-09-08] MEDS: sertraline 50 mg Tablet PO (16:58)
[2021-09-08] MEDS: atorvastatin 40 mg Tablet PO (16:59)
--- NOTE | 2021-09-08 19:11 | P.PN_ITS ---
Subjective Subjective: Interval history: He was doing well this morning, however, dizzy upon standing up, became lightheaded, confused, and urinated accidentally on the floor. Vitals/I&O/Wt Last Vital Signs Temp 98.3 F 09/08/21 16:58 Pulse 88 09/08/21 14:00 Resp 18 09/08/21 13:00 BP 84/70 09/08/21 13:00 Pulse Ox 92 09/08/21 13:00 09/08/21 09/08/21 09/08/21 06:59 14:59 22:59 Intake Total 120 / 1518 720 / 720 Output Total 350 / 1150 800 / 800 Balance -230 / 368 -80 / -80 Weight last 48 hrs Weight 113.2 kg Weight 122.924 kg Physical Exam Const: COMMON NORMALS: no acute distress GENERAL APPEARANCE: cooperative and disheveled NUTRITIONAL APPEARANCE: obese HENMT: COMMON NORMALS: oropharynx normal Neck/C-Spine: COMMON NORMALS: no JVD Resp: COMMON NORMALS: normal respiratory effort and clear to auscultation bijan aterally AUSCULTATION: clear to auscultation bilaterally Cardio: COMMON NORMALS: no JVD, regular rhythm, S1 normal heart sound present, S2 normal heart sound present and No murmurs present (Cardio) RHYTHM: regular rhythm HEART SOUNDS: S1 normal heart sound present and S2 normal heart sound present GI: COMMON NORMALS: Normal to inspection, nondistended, normoactive bowel sounds present, Soft to palpation and non-tender PALPATION: Yes Soft to palpation Extremity: COMMON NORMALS: no joint enlargement and no pedal edema Neuro: COMMON NORMALS: moves all extremities Skin: COMMON NORMALS: no rashes or lesions noted GENERAL SKIN EXAM: no rashes or lesions noted Data : 09/08/21 03:40 09/08/21 03:40 A&P Assessment and plan (1) Atrial fibrillation with RVR: Overnight heart rates did well. This morning with some mobilization and some increase in heart rate, however, became quite dizzy when standing up, lightheaded. Hypotensive. Will request orthostatic blood pressures. Hold lisinopril for now. Status: Acute (2) Acute anemia: Hemoglobin today is better, 8.3. Aspirin and Plavix are on hold. Continue PPI. Discussed to follow-up with primary provider, follow-up hemoglobin level, possibly resume Plavix after about a week. Hold aspirin for now. Would benefit from endoscopic assessment once heart rates, blood pressures are steady. Patient is 72 year old male who presented with weakness, fatigue and abnormal labs Noted to be severely anemic with hemoglobin of 5.3 and hematocrit of 18.5 as compared to previous labs with hemoglobin of 9 on 04/09/20. Patient has received 3 units PRBC since admission Status: Acute (3) Acute decompensated heart failure: Improved. Was transitioned from IV Lasix to p.o. Continue. Patient noted to have signs of fluid overload on imaging with elevated BNP. ECHO obtained and reviewed with EF of 45 percent and moderate aortic stenosis and moderate mitral regurgitation Hold lisinopril due to low blood pressure. Will need outpatient cardiology F/U Status: Acute (4) Atherosclerosis of coronary artery of [place] heart with stable angina pectoris: Cardiology recommendations appreciated. Continue medical therapy. Has h/o CAD. On home meds of aspirin, statin and beta shorty Telemetry Status: Acute Qualifiers: Coronary Disease-Associated Artery/Lesion type: [place] artery Qualified Code(s): I25.118 - Atherosclerotic heart disease of [place] coronary artery with other forms of angina pectoris (5) Atrial fibrillation: Status: Acute Qualifiers: Atrial fibrillation type: paroxysmal Qualified Code(s): I48.0 - Paroxysmal atrial fibrillation (6) Exertional dyspnea: On more oxygen than usual at 3 L nasal cannula currently compared to 2 L usually. Also reported to have some confusion thinking he is at home, seeing his dog. Possible delirium. We will additionally assess by chest x-ray, speech therapy, MBS given equivocal finding in right lower lobe, and he reports cough, consideration of possible aspiration. Likely also contribution from severe anemia, as well as baseline COPD and new onset CHF exacerbation ECHO noted with EF of 45 percent, mild hypokinesis of LV, moderate aortic stenosis and moderate mitral regurg Status: Acute (7) NATALIE (acute kidney injury): Improved. Status: Acute (8) Hyponatremia: Improved. Serum sodium 126 on arrival Likely related to NATALIE and possible CHF Status: Acute (9) Elevated troponin: Continue cardiac medicines. Appreciate cardiology consultation. Troponin [phone] No acute EKG changes of ischemia noted Likely non cardiac. May be related to renal failure Status: Acute (10) Hyperkalemia: Resolved. Status: Acute (11) Acute exacerbation of chronic obstructive pulmonary disease: Decrease steroid dose. Steroid taper at discharge. Oxygen support. Breathing treatments. Inhaled steroid. States he has quit smoking as of coming to the hospital. Encouraged him to keep up with cessation. Continue nicotine patch, add nicotine lozenges. Status: Acute Additional A&P Information Possible delirium: reports episodes of occasional confusion at home. No suggestion of acute infection. Chest x-ray unremarkable, although with speech therapy is found to have a risk of aspiration, recommendations for mechanical soft diet and nectar thick liquids discussed with him and his . UA not suggestive of infection. Solu-Medrol dose was decreased. Today appears to be oriented, more alert and interactive. Attestations Medical Necessity Statement*: Continue admission for optimization of control of A. fib with RVR, with better control, but with orthostatic symptoms, hypotension. Coding Level of Care Code Acute Assistant Operator for Chg Fwd Diagnoses Atrial fibrillation with RVR I48.91 Acute anemia D64.9 Acute decompensated heart failure I50.9 Atherosclerosis of coronary artery of [place] heart with stable angina pectoris I25.118 Coronary Disease-Associated Artery/Lesion type: [place] artery Atrial fibrillation I48.0 Atrial fibrillation type: paroxysmal Exertional dyspnea R06.00 NATALIE (acute kidney injury) N17.9 Hyponatremia E87.1 Elevated troponin R77.8 Hyperkalemia E87.5 Acute exacerbation of chronic obstructive pulmonary disease J44.1
[2021-09-08] MEDS: tizanidine 4 mg Tablet 2 MG PO (20:42)
--- NOTE | 2021-09-08 20:47 | PC.NURSE ---
Shift Note Pt has been confused off and on but this is his baseline per sadiq. pt has been incontinent with urine and stools. wants pt to use his cpap. rt notified and he used the cpap for 2 hrs. Frequent safety and comfort rounds continue. Orders and/or nursing care completed as indicated. Patient monitored for response to intervention and treatment(s). Education provided includes orthostatic vs check due to his dizziness. Patient and/or accounts payable representative reinforcement needed. Will continue to monitor.
[2021-09-09] VITALS (10 sets, daily range): BP systolic 111–126; BP diastolic 48–80; PULSE 74–124; RESP 14–20; TEMP 36.6; O2SAT 84–100
[2021-09-09 03:47] LABS: Basophils % 0.1 %; Eosinophils # 0.1 10^3/uL (0.0-0.8); Eosinophils % 0.7 %; Hematocrit 31.3 % (42.0-52.0); Hemoglobin 9.2 g/dL (11.7-16.6); Lymphocytes # 2.5 10^3/uL (0.8-4.8); Lymphocytes % 20.3 %; Mean Corpuscular HGB Conc 29.4 g/dL (30.0-36.0); Mean Corpuscular Hemoglobin 22.8 pg (28.0-34.0); Mean Corpuscular Volume 77.7 fl (80-94); Mean Platelet Volume 10.1 fL (7.4-10.4); Monocytes # 1.4 10^3/uL (0.2-0.9); Monocytes % 11.9 %; Neutrophils # 8.02 10^3/uL (1.8-7.7); Neutrophils % 66.3 %; Nucleated Red Blood Cells % 0 %; Platelet Count 235 10^3/cmm (130-400); Red Blood Count 4.03 10^6/uL (4.1-5.3); White Blood Count 12.1 10^3/uL (4.0-10.0)
[2021-09-09 04:11] LABS: Alanine Aminotransferase 155 U/L (0-41); Albumin Level 3.8 g/dL (3.5-5.2); Alkaline Phosphatase 68 IU/L (40-130); Anion Gap 13.7 (5-19); Aspartate Amino Transferase 63 U/L (0-40); Blood Urea Nitrogen 24 mg/dL (8-23); Calcium 8.5 mg/dL (8.5-10.5); Carbon Dioxide 30 mmol/L (22-29); Chloride 91 mmol/L (98-107); Globulin 1.9 g/dL (1.3-4.6); Glucose 92 mg/dL (65-115); Osmolality Calculated 276 mOsm/kg (285-295); Potassium 3.7 mmol/L (3.5-5.1); Sodium 131 mmol/L (136-145); Total Bilirubin 0.5 mg/dL (0.15-1.2); Total Protein 5.7 g/dL (6.6-8.7)
[2021-09-09] MEDS: pantoprazole 40 mg SDV IVP (06:27)
--- NOTE | 2021-09-09 09:29 | PC.SOCIAL ---
IMM Update pg 2 of [facility] updated and reviewed w/ patient and patients Sheryl via phone. Copy provided.
[2021-09-09] MEDS: FUROsemide 40 mg Tablet PO (09:34)
[2021-09-09] MEDS: cholecalciferol (vitamin D3) 1,000 unit Tablet 1000 UNIT PO (09:34)
[2021-09-09] MEDS: dilTIAZem ER (24HR) 240 mg Capsule PO (09:34)
[2021-09-09] MEDS: guaiFENesin 600 mg Tablet PO (09:34)
[2021-09-09] MEDS: metoprolol succinate ER (24 HR) 50 mg Tablet 75 MG PO (09:37)
[2021-09-09] MEDS: multivitamin therapeutic Tablet 1 TAB PO (09:37)
[2021-09-09] MEDS: predniSONE 20 mg Tablet PO (09:38)
[2021-09-09] MEDS: nicotine 21 mg Patch 1 PATCH TRANSDERMA (09:38)
[2021-09-09] MEDS: budesonide 0.5 mg/2 mL Neb INHALATION (09:39)
[2021-09-09] MEDS: ipratropium 0.5 mg/2.5 mL Neb INHALATION (09:39)
[2021-09-09] MEDS: docusate sodium 100 mg Capsule PO (09:40)
[2021-09-09] MEDS: polyethylene glycol 3350 Pkt 17 gm PO (09:40)
--- NOTE | 2021-09-09 14:51 | PM.DCS ---
Discharge Providers Date of Admission: 09/02/21 14:54 Date of Discharge: September 09, 2021 Attending Provider at Admission: Katharina Murray MD Attending Provider at Discharge: Cruzito Odom Primary Care Provider: Musa Myers Diagnoses at Discharge Discharge Diagnosis (1) Atrial fibrillation with RVR: Status: Acute (2) Acute anemia: Status: Acute (3) Acute decompensated heart failure: Status: Acute (4) Atherosclerosis of coronary artery of [place] heart with stable angina pectoris: Status: Acute Qualifiers: Coronary Disease-Associated Artery/Lesion type: [place] artery Qualified Code(s): I25.118 - Atherosclerotic heart disease of [place] coronary artery with other forms of angina pectoris (5) Atrial fibrillation: Status: Acute Qualifiers: Atrial fibrillation type: paroxysmal Qualified Code(s): I48.0 - Paroxysmal atrial fibrillation (6) Exertional dyspnea: Status: Acute (7) NATALIE (acute kidney injury): Status: Acute (8) Hyponatremia: Status: Acute (9) Elevated troponin: Status: Acute (10) Hyperkalemia: Status: Acute (11) Acute exacerbation of chronic obstructive pulmonary disease: Status: Acute Reason for Visit Reason for Visit: WEAKNESS, LOW H&H Hospital Course Hospital Course 76-year-old gentleman assessed and treated due to acute anemia, hemoglobin 5.3 on presentation, required 3 units of PRBC during hospitalization, aspirin and Plavix were held. Hospitalization complicated by difficult to control A. fib with RVR, also with noted troponin elevation, acute CHF exacerbation. EF noted 45%. Possible ischemic cardiomyopathy. Troponin ovation, however, thought to be more likely secondary to acute demand ischemia with acute anemia, A. fib with RVR. Management assisted by cardiology. Heart rates now doing much better on 240 mg Cardizem ER, 75 mg metoprolol. Lisinopril initially was continued at a lower dose, however, blood pressures noted soft history, so lisinopril discontinued, with blood pressures today doing better, 117/59. Would hold off on BRNADIE inhibitor addition for now, but may be considered later if blood pressures allow for beneficial effect with his cardiomyopathy and low EF. During hospitalization also managed for COPD exacerbation treated with steroids, breathing treatments. Symptoms improved. He is doing well, and overall has been feeling much better. He feels ready to return home where he is being cared for by his , and home health care is ordered for him as well. Currently aspirin and Plavix are both on hold. Hemoglobin appears to have stayed out while off antiplatelets, with hemoglobin 8.3 yesterday, 9.2 today. He is continued on PPI twice daily. He is asked to hold Plavix further until 09/14, then consider restarting, with follow-up blood counts in office. Once heart rates are steady and blood pressures are good, as well as he recovers well from the respiratory conditions, please refer him for additional endoscopic evaluation of acute on chronic anemia. Hyponatremia noted on presentation resolved. Noted episodes of occasional confusion in the hospital, as per discussion with his these are not new and happened at home as well. Please reassess at follow-up. Avoid high risk medications if possible. During hospitalization also assessed by speech therapy, MBS, with concern for possible aspiration, he is at risk of aspiration, recommended continue mechanical soft diet with nectar thick liquids. Discharge Data Data Completed and Pending: Completed Studies During Hospitalization Category Date Time Status FL barium swallow modifd [id number] Rout ine Exams 09/06/21 12:09 Completed XR chest 1V kolby ble [id number] Routine Exams 09/06/21 10:21 Completed XR chest 1V kolby ble [id number] Urgent Exams 09/02/21 12:52 Completed CV. echo complete * [id number] Routine Ultrasound 09/03/21 18:17 Completed Labs from last 24 hours 09/09/21 09/09/21 02:54 02:54 WBC 12.1 H RBC 4.03 L Hgb 9.2 L Hct 31.3 L MCV 77.7 L MCH 22.8 L MCHC 29.4 L RDW 19.0 H Plt Count 235 MPV 10.1 Neut % (Auto) 66.3 Lymph % (Auto) 20.3 [place] % (Auto) 11.9 Eos % (Auto) 0.7 Baso % (Auto) 0.1 Neut # (Auto) 8.02 H Lymph # (Auto) 2.5 [place] # (Auto) 1.4 H Eos # (Auto) 0.1 Baso # (Auto) 0.0 Nucleated RBC % (a uto) 0 Nucleated RBCs # 0.0 Sodium 131 L Potassium 3.7 Chloride 91 L Carbon Dioxide 30 H Anion Gap 13.7 BUN 24 H Creatinine 0.6 L GFR Calculation Not Reportable Glucose 92 Calculated Osmolal ity 276 L Calcium 8.5 Total Bilirubin 0.5 AST 63 H ALT 155 H Alkaline Phosphata se 68 Total Protein 5.7 L Albumin 3.8 Globulin 1.9 Vitals: Last Vital Signs Temp 98 F 09/09/21 04:00 Pulse 78 09/09/21 14:00 Resp 20 H 09/09/21 12:00 BP 117/59 09/09/21 12:00 Pulse Ox 93 09/09/21 09:36 Discharge Plan Discharge Patient Disposition: Home Health Service Condition: Stable Prescriptions: New polyethylene glycol 3350 17 gram Powder In Packet 17 g PO DAILY PRN (Reason: constipation) Qty: 90 RF: 0 diltiazem HCl 240 mg Capsule,Extended Release 24hr 240 mg PO DAILY Qty: 90 RF: 0 prednisone 20 mg Tablet 20 mg PO DAILY Qty: 5 RF: 0 metoprolol tartrate 75 mg tablet 75 mg PO BID Qty: 60 RF: 3 pantoprazole 40 mg tablet,delayed release (DR/EC) 40 mg PO BID 42 Days Qty: 84 RF: 0 nicotine 21 mg/24 hr Patch 24 Hour 1 patch transdermal DAILY Qty: 90 RF: 0 furosemide 40 mg Tablet 40 mg PO DAILY@0800 Qty: 90 RF: 0 Continued atorvastatin 40 mg tablet 40 mg PO QPM RF: 0 nitroglycerin [Nitrostat] 0.4 mg tablet, sublingual 0.4 mg SUBLINGUAL Q5M PRN (Reason: Chest Pain) RF: 0 tizanidine 2 mg tablet 2 mg PO BEDTIME RF: 0 sertraline 50 mg tablet 50 mg PO QPM RF: 0 ipratropium bromide 0.02 % solution 2.5 ml inhalation BID RF: 0 meclizine 25 mg tablet 25 mg PO QPM RF: 0 glipizide 5 mg tablet 5 mg PO QAM RF: 0 Stiolto Respimat 2.5-2.5 mcg/actuation mist 2 puff inhalation DAILY Qty: 4 RF: 3 multivitamin Tablet 1 tab PO QAM RF: 0 budesonide 0.5 mg/2 mL Suspension For Nebulization 0.5 mg INHALATION BID RF: 0 arformoterol [Brovana] 15 mcg/2 mL Solution For Nebulization 2 ml INHALATION BID RF: 0 levalbuterol tartrate 45 mcg/actuation HFA aerosol inhaler 2 puff INHALATION Q6H PRN (Reason: Shortness Of Breath) RF: 0 Vitamin D3 25 mcg (1,000 unit) Capsule 25 mcg PO QPM RF: 0 Tylenol Ex Str Rapid Release 500 mg Tablet 1,000 mg PO Q6H PRN (Reason: Pain) RF: 0 Held clopidogrel [Plavix] 75 mg tablet 75 mg PO QAM RF: 0 Hold Instructions: Resume on 09/14/21. Discontinued aspirin 325 mg tablet 325 mg PO QAM RF: 0 lisinopril 40 mg tablet See Rx Instructions .ROUTE .COMPLEX Qty: 90 RF: 3 famotidine 40 mg tablet 40 mg PO QPM RF: 0 prednisone 20 mg tablet 20 mg PO DAILY RF: 0 tramadol 50 mg tablet 50 mg PO Q8H PRN (Reason: Pain) RF: 0 doxycycline hyclate 100 mg tablet 100 mg PO BID RF: 0 amlodipine 2.5 mg tablet 2.5 mg PO QAM RF: 0 metoprolol tartrate 25 mg tablet 12.5 mg PO BID RF: 0 Discharge Orders: Discharge Order (Routine); Ordered 09/09/21 Ordered By: Cruzito Odom Referrals: [facility] [Outside] Musa Myers [Primary Care Provider] - Justyn Middleton MD [Physician] - 1 month Swapna Acevedo FNP [Nurse Practitioner] - 1 week Discharge Diet: As Directed and Cardiac Discharge Activity: Increase activity as tolerated, As per PT/OT instructions and Oxygen as instructed Patient Instructions: Metoprolol (By mouth), Diltiazem (By mouth), Heart Failure (GEN), A-fib (Atrial Fibrillation) (GEN), How to Stop Smoking (GEN), Cigarette Smoking and Your Health (GEN), COPD (Chronic Obstructive Pulmonary Disease) (GEN), Anemia (GEN), Aspiration Precautions (GEN), Opioid Safety Activity Restrictions/Additional Instructions: Monitor heart rates and blood pressures 3 times daily, write down values to bring to your appointment. Target heart rates are below 110 beats per minute. Call your heart doctor's office or primary care doctor's office in case you are feeling dizzy, or if your heart rates are getting faster and staying above 110 beats per minute. Your blood pressure medications lisinopril and amlodipine are discontinued due to starting diltiazem and increase in dose of metoprolol. Follow-up with the cardiology office regarding ischemic cardiomyopathy and congestive heart failure, coronary artery disease and atrial fibrillation. Due to risk of aspiration/choking, please as discussed make sure to only eat mechanical soft diet and thicken all liquids to nectar thick consistency. In case of concerning symptoms like chest pain, fainting, bleeding or other, call 911. Please have your primary doctor follow your kidney function to confirm that there is no recurrence of kidney injury. And have them follow-up your electrolytes to make sure sodium level remains in the good range. Hold aspirin Plavix for now due to acute anemia. Resume Plavix on 09/14. Have your primary doctor follow your blood count level at next appointment. Discussed with your doctor referral for evaluation by endoscopy to evaluate the cause of possible bleeding in your GI tract and exclude malignancy. Subsequently if safe your aspirin may be restarted as well. Aspirin and Plavix will be needed to reduce chance of heart attack, stroke with coronary artery disease and atrial fibrillation which you have. If unable to resume, discussed with your primary doctor other options, also possibly referral for left atrial appendage closure. Please stop smoking. Further smoking will lead to continued deterioration of your lung condition, worsening COPD, as well as continued risk of heart attack and stroke, in addition to various cancers. Discharge Attestations Time Spent in Discharge Care*: greater than 30 min Quality Metrics Clinical Quality Measures During this hospital stay, did patient experience: AMI Clinical Trial Participant: No Contraindication to aspirin (AMI): Drug intolerance Contraindication to statin: Statin prescribed Coding Level of Care Code Acute Chg FW DC note Diagnoses Atrial fibrillation with RVR I48.91 Acute anemia D64.9 Acute decompensated heart failure I50.9 Atherosclerosis of coronary artery of [place] heart with stable angina pectoris I25.118 Coronary Disease-Associated Artery/Lesion type: [place] artery Atrial fibrillation I48.0 Atrial fibrillation type: paroxysmal Exertional dyspnea R06.00 NATALIE (acute kidney injury) N17.9 Hyponatremia E87.1 Elevated troponin R77.8 Hyperkalemia E87.5 Acute exacerbation of chronic obstructive pulmonary disease J44.1
--- NOTE | 2021-09-09 17:27 | PC.NURSE ---
prescriptions [facility]. phoned and instructed in medication changes and additions.home health has been arranged.discharged via w/c to exit[place] cab to drive pt home.home o2 on pt.
== END 2021-09-09 17:31 | disposition home health service (06) | DRG 811 ==
LOC: ER 14:54 → CSU 16:07
PROVIDERS: Admitting Provider Internal Medicine; Emergency Provider Emergency Medicine; PCP Family Medicine; Visit Provider Internal Medicine
DX: D64.9 Anemia, unspecified (principal); I50.21 Acute systolic (congestive) heart failure; N17.9 Acute kidney failure, unspecified; E87.1 Hypo-osmolality and hyponatremia; J44.1 Chronic obstructive pulmonary disease with (acute) exacerbation; I24.8 Other forms of acute ischemic heart disease; I25.110 Atherosclerotic heart disease of native coronary artery with unstable angina pectoris; I11.0 Hypertensive heart disease with heart failure; I65.23 Occlusion and stenosis of bilateral carotid arteries; I25.5 Ischemic cardiomyopathy; I48.0 Paroxysmal atrial fibrillation; R77.8 Other specified abnormalities of plasma proteins; E87.5 Hyperkalemia; R41.0 Disorientation, unspecified; F17.210 Nicotine dependence, cigarettes, uncomplicated; Z79.02 Long term (current) use of antithrombotics/antiplatelets; Z79.01 Long term (current) use of anticoagulants; I35.0 Nonrheumatic aortic (valve) stenosis; I34.0 Nonrheumatic mitral (valve) insufficiency; I95.9 Hypotension, unspecified
CPT/HCPCS: 12345; 36415; 36430; 36600; 71045; 74230; 80048; 80053; 80162; 81003; 82803; 83880; 84132; 84484; 85007; 85014; 85018; 85025; 85027; 85610; 85730; 86850; 86900; 86920; 92610; 92611; 93005; 93306; 94640; 96374; 96376; 97161; 99285; C9113; J1940; J2920; J3490; J7512; J7626; J7644; P9016; P9040

== ENCOUNTER → 2021-10-12 11:55 | Outpatient (BNVA) | payer MEDICARE, MEDICAID, SELFPAY | PROVIDERS: PCP Family Medicine; Visit Provider Internal Medicine Cardiovascular Disease | DX: R06.02 Shortness of breath (principal); I48.0 Paroxysmal atrial fibrillation; I50.33 Acute on chronic diastolic (congestive) heart failure; I31.9 Disease of pericardium, unspecified; I10 Essential (primary) hypertension | CPT/HCPCS: 80048; 83880; 84484 ==

== ENCOUNTER 2021-11-25 08:27 | Day surgery (SDC) | payer MEDICARE, MEDICAID, SELFPAY ==
[2021-11-23 09:49] VITALS: BMI 32.8
--- NOTE | 2021-11-25 09:21 | ANES.PREANE2 ---
Pre-Anesthetic Assessment Height/Weight: Height 1.8 m Weight 106.594 kg Preop Diagnosis: Iron deficiency anemia and dysphagia Operation Date: 11/25/21 10:30 Proposed Procedures p EGD 12108/28035/d50.9(Not Applicable) - Matt Prnice MD s Colonoscopy(Not Applicable) - Matt Prince MD Was Beta King taken within 24 hours: Yes Last intake: 11/24/21 Social Tobacco Exam alert, oriented x 3, clear to auscultation bilaterally and regular rate & rhythm Airway Submandibular: within normal limits Cervical ROM: within normal limits Mallampati: Class I Dentition: false Pulmonary Chronic Obstructive Pulmonary Disease (On O2 2 LPM NC by day, 3 LPM w/ CPAP at night ), Exertional Dyspnea, Sleep Apnea and Shortness of Breath CV/HEM Atrial Fibrillation, Anemia, Coronary Artery Disease (Cardiomypathy ), Congestive Heart Failure, Hypertension, Murmur () and Peripheral Vascular Disease (B/L carotid stenosis ) TTE 08/2021 EKG 09/03/21 ?? Interpretive Statements ATRIAL FIBRILLATION WITH RAPID VENTRICULAR RESPONSE INTRAVENTRICULAR CONDUCTION DELAY? [130+ ms QRS DURATION] Compared to ECG 09/02/2021 21:45:32 Sinus rhythm no longer present Myocardial infarct finding no longer present Electronically Signed On 09-03-2021 18:19:12 [employer] by RONY ROMERO [email or web address] CONCLUSIONS ?Normal LV size with diminished ejection fraction of 45 to 50%.? ?Mild diffuse hypokinesia of the left ventricle. ?Moderate aortic valve calcification. Moderate aortic valve ?stenosis, mean gradient 92 mmHg, NUNU 1.4 cm squared.? Peak gradient of ?37 mmHg.? Peak velocity of 3.03 m/s. ?Ghit-po-trtyryuw tricuspid valve regurgitation.? Estimated ?pulmonary artery peak systolic pressure of 49 mmHg. ?Thickened mitral valve. Moderate mitral valve regurgitation. ?There is no pericardial effusion. ?There are no intracardiac masses. ?No previous study is available for comparison. ?Dr. Murray was informed about these findings Nuc Med 01/2021 IMPRESSIONS ?1. Large size predominantly fixed perfusion abnormality of basal to apical ?inferior, basal to mid inferolateral, apical lateral, apical septal and apical ?dwyer. ?2. This may be suggestive of old myocardial infarction in right coronary ?artery/circumflex artery territory or attenuation artifact. ?3. The left ventricular ejection fraction is mildly reduced with a value of ?50%. ?4. There is possible mild hypokinesis of basal to mid inferolateral and ?inferior dwyer. ?5. No coronary ischemia based on the study. ?6. No significant EKG changes with Lexiscan infusion.? Please refer to separate ?report for details. Hepatic Elevated AST/ALT GI Gastroesophageal Reflux Disease Dysphagia FL/FL barium swallow modifd 11484 IMPRESSION: 1. The patient experienced penetration into the laryngeal inlet when ingesting thin liquid and nectar consistency barium foodstuffs. ? A separate report of recommendations and findings will follow from the speech therapy service. Metabolic Diabetes Mellitus Musc/skel Osteoarthritis/DJD Neuropsych None reported Anesthetic Plan ASA status: 4 Anesthesia: Anesthesia Evaluation, General and MAC Other: I discussed with the patient risks, goals, and benefits of MAC and general anesthesia. We discussed spectrum of MAC anesthesia including conversion to general as well as possibility of recall of intraoperative stimuli including discomfort/pain. Patient agrees to proceed with MAC. Risk of > 500 ml blood loss (7ml/kg in children): No Medications/Allergies Home Medications Medication Instructions Recorded Confirmed Last Taken Type atorvastatin 40 mg tablet 40 mg PO QPM 01/06/20 11/23/21 09/01/21 History nitroglycerin 0.4 mg sublingual 0.4 mg SUBLINGUAL Q5M PRN 01/06/20 11/23/21 Unknown History tablet (Nitrostat) sertraline 50 mg tablet 50 mg PO QPM 01/06/20 11/23/21 09/01/21 History tizanidine 2 mg tablet 2 mg PO BEDTIME 01/06/20 11/23/21 09/01/21 History budesonide 0.5 mg/2 mL suspension 0.5 mg INHALATION BID 04/03/20 11/23/21 09/02/21 07:30 History for nebulization multivitamin 1 tab PO QAM 04/03/20 11/23/21 09/02/21 History clopidogrel 75 mg tablet (Plavix) 75 mg PO QAM 04/29/20 11/23/21 11/20/21 History ipratropium bromide 0.02 % 2.5 ml INHALATION BID ml 02/16/21 11/23/21 09/02/21 History solution for inhalation meclizine 25 mg tablet 25 mg PO QPM 02/16/21 11/23/21 Unknown History tiotropium 2.5 mcg-olodaterol 2.5 2 puff INHALATION DAILY #4 g 06/14/21 11/23/21 Unknown Rx mcg/actuation mist for inhalation (Stiolto Respimat) glipizide 5 mg tablet 5 mg PO QAM tab 08/19/21 11/23/21 09/02/21 History acetaminophen 500 mg tablet 1,000 mg PO Q6H PRN 09/02/21 11/23/21 Unknown History cholecalciferol (vitamin D3) 25 25 mcg PO QPM 09/02/21 11/23/21 09/01/21 History mcg (1,000 unit) capsule (Vitamin D3) levalbuterol tartrate 45 2 puff INHALATION Q6H PRN 09/02/21 11/23/21 Unknown History mcg/actuation aerosol inhaler metoprolol tartrate 75 mg tablet 75 mg PO BID #60 tab 09/08/21 11/23/21 Unknown Rx diltiazem HCl 240 mg 240 mg PO DAILY #90 cap 09/09/21 11/23/21 Unknown Rx capsule,extended release 24 hr furosemide 40 mg tablet 40 mg PO DAILY@0800 #90 tab 09/09/21 11/23/21 Unknown Rx diabetic shoes with inserts #1 ea 10/12/21 10/29/21 Unknown Rx docusate sodium 50 mg capsule 50 mg PO DAILY 10/27/21 11/23/21 Unknown History pantoprazole 40 mg tablet,delayed 40 mg PO DAILY 10/27/21 11/23/21 Unknown History release aspirin 325 mg tablet 325 mg PO DAILY 11/23/21 11/23/21 11/20/21 History Allergies Allergy/AdvReac Type Severity Reaction Status Date / Time erythromycin base Allergy Mild ALGY-Rash Verified 10/29/21 11:07 [facility] Anesthesia Medical History Aortic valve stenosis Atherosclerosis of coronary artery of [place] heart with stable angina pectoris Atrial fibrillation Atrial fibrillation with RVR Bilateral carotid artery stenosis Cardiomegaly Elevated troponin Exertional dyspnea Hyperlipidemia Hypertension Ischemic cardiomyopathy Surgical History History of total left hip arthroplasty History of total right hip arthroplasty S/P hip replacement Right Family History Father CAD (coronary artery disease) Lung disease Denies family history of Diabetes Clotting disorder Dementia Chronic kidney disease (CKD) Suicide Anesthesia complication Bleeding disorder Cancer Stroke Social History Smoking and tobacco status: current every day smoker cigarettes Packs smoked per day: 0.5 Years cigarettes smoked: 58 [ Other cigarette details: 1-2ppd] Quit status (tobacco): considering quitting Second hand smoke exposure: No Smoking risk assessment/counseling performed?: Yes Alcohol intake: never Lives independently: Yes Household members: spouse Marital status: service: No Current occupational status: retired Pets and animals: Yes History of recent travel: No Current gender identity: Male Data Anesthesia Cardiac Studies: Echocardiogram 09/03/21 Sestamibi Stress Test (Cardiology) 02/02/21
[2021-11-25 09:53] VITALS: BP 101/82; PULSE 122; RESP 18; TEMP 36.4; O2SAT 98
[2021-11-25] MEDS: sodium chloride 0.9% 1,000 ML 30 ML IV (09:55)
--- NOTE | 2021-11-25 10:38 | W.PM.OPSUD ---
Surgery/Procedure H&P Update DATE OF PROCEDURE: November 25, 2021 DATE H&P PERFORMED: 10/27/21 H&P UPDATE INFORMATION: I have reviewed H&P completed within last 30 days, I have examined patient prior to procedure and No changes to prior documentation PREOP DIAGNOSIS: Iron deficiency anemia and dysphagia PRIMARY INDICATION FOR PROCEDURE: The same PLANNED PROCEDURE: Operation Date: 11/25/21 10:30 Proposed Procedures p EGD 24482/60359/d50.9(Not Applicable) - Matt Prince MD s Colonoscopy(Not Applicable) - Matt Prince MD
[2021-11-25 11:59] VITALS: BP 120/79; PULSE 107; RESP 18; TEMP 36.6; O2SAT 92
[2021-11-25 12:09] VITALS: BP 122/82; PULSE 111; RESP 18; TEMP 36.3; O2SAT 95
--- NOTE | 2021-11-25 16:46 | ANE.PACU2 ---
Inpatient post-anesthesia follow up: Airway intact: Yes Vital signs: Temperature 97.4 F Pulse Rate 111 Respiratory Rate 18 Blood Pressure 122/82 Pulse Oximetry 95 Oxygen Delivery Me thod Room Air Oxygen Flow Rate 2 Fraction of Inspir ed Oxygen Hydration adequate: Yes Nausea and vomiting: No Pain level: 1 Mental status: Baseline
== END 2021-11-25 12:26 | disposition home or self-care (01) ==
PROVIDERS: PCP Family Medicine; Visit Provider Surgery
PROC: 0DJ08ZZ Inspection of Upper Intestinal Tract, Via Natural or Artificial Opening Endoscopic (ICD-10-PCS; CPT 43235; principal; 2021-11-25 10:30)
PROC: 0DJD8ZZ Inspection of Lower Intestinal Tract, Via Natural or Artificial Opening Endoscopic (ICD-10-PCS; CPT 45378; 2021-11-25 10:30)
DX: D50.9 Iron deficiency anemia, unspecified (principal); R13.10 Dysphagia, unspecified; D12.3 Benign neoplasm of transverse colon; K21.00 Gastro-esophageal reflux disease with esophagitis, without bleeding; K29.70 Gastritis, unspecified, without bleeding; J44.9 Chronic obstructive pulmonary disease, unspecified; Z99.81 Dependence on supplemental oxygen; I48.91 Unspecified atrial fibrillation; G47.30 Sleep apnea, unspecified
CPT/HCPCS: 43235; 45380; 88305; J7030

== ENCOUNTER → 2021-12-02 13:04 | Outpatient (BNVA) | payer MEDICARE, MEDICAID, SELFPAY | PROVIDERS: PCP Family Medicine; Visit Provider Surgery | DX: Z09 Encounter for follow-up examination after completed treatment for conditions other than malignant neoplasm (principal); K21.9 Gastro-esophageal reflux disease without esophagitis; K63.5 Polyp of colon; F17.210 Nicotine dependence, cigarettes, uncomplicated | CPT/HCPCS: 99213 ==

== ENCOUNTER → 2022-01-10 09:28 | Outpatient (BNVA) | payer MEDICARE, MEDICAID, SELFPAY | PROVIDERS: PCP Family Medicine; Visit Provider Internal Medicine Pulmonary Disease | DX: J44.9 Chronic obstructive pulmonary disease, unspecified (principal); I48.0 Paroxysmal atrial fibrillation; I25.5 Ischemic cardiomyopathy; E78.2 Mixed hyperlipidemia; I10 Essential (primary) hypertension; I65.23 Occlusion and stenosis of bilateral carotid arteries; G47.33 Obstructive sleep apnea (adult) (pediatric); Z99.89 Dependence on other enabling machines and devices; J22 Unspecified acute lower respiratory infection; F17.210 Nicotine dependence, cigarettes, uncomplicated | CPT/HCPCS: 71046; 80053; 85025; 99214 ==

== ENCOUNTER → 2022-01-13 13:36 | Outpatient (BNVA) | payer MEDICARE, MEDICAID, SELFPAY | PROVIDERS: PCP Family Medicine; Visit Provider Internal Medicine Cardiovascular Disease | DX: I11.0 Hypertensive heart disease with heart failure (principal); I50.22 Chronic systolic (congestive) heart failure; I73.9 Peripheral vascular disease, unspecified; I48.0 Paroxysmal atrial fibrillation; I42.9 Cardiomyopathy, unspecified; I25.118 Atherosclerotic heart disease of native coronary artery with other forms of angina pectoris; E78.2 Mixed hyperlipidemia; F17.210 Nicotine dependence, cigarettes, uncomplicated | CPT/HCPCS: 99214 ==

== ENCOUNTER 2022-04-19 15:07 | Outpatient (CLI) | payer MEDICARE, MEDICAID, SELFPAY ==
--- NOTE | 2022-04-19 15:45 | CT_ITS ---
WS: [id number] LDCT LUNG CANCER SCREENING TECHNIQUE: Noncontrast CT of the chest with coronal and sagittal reformatted images. CLINICAL INFORMATION: lung screening COMPARISON: CT 2020 DLP: 75.19 mGy.cm DIvol: Mean CTDIvol: 1.60 (mGy) All CT scans at [facility] use at least one of these dose optimization techniques: automat ed exposure control; mA and/or kV adjustment per patient size (includes targeted exams where dose is matched to clinical indication); or iterative reconstruction. FINDINGS:12 mm cavitary lesion LEFT upper lobe peripherally is better seen and slightly more prominen t compared to April 08, 2021 with more peripheral soft tissue thickening. Recommend 6 month follow-u p. No other suspicious pulmonary parenchymal abnormalities. Mild thoracic curve. Mild thoracic kyphosis. Ankylosis thoracic spine. Normal caliber thoracic aorta. Aortic calcification. Coronary calcification. No axillary lymphadenopathy. Normal GE junction. Small bilateral adrenal adenomas. Largest in the LEFT measuring [address]/CT lung screening [id number] IMPRESSION: LUNG-RADS: 3-Probably Benign FOLLOW UP: 6 Month LDCT
== END 2022-04-19 15:08 | disposition home or self-care (01) ==
LOC: RAD 15:08
PROVIDERS: PCP Family Medicine; Visit Provider Internal Medicine Pulmonary Disease
DX: F17.210 Nicotine dependence, cigarettes, uncomplicated (principal); J44.9 Chronic obstructive pulmonary disease, unspecified; I48.0 Paroxysmal atrial fibrillation; Z12.2 Encounter for screening for malignant neoplasm of respiratory organs; I25.5 Ischemic cardiomyopathy; G47.33 Obstructive sleep apnea (adult) (pediatric); Z99.89 Dependence on other enabling machines and devices; Z71.6 Tobacco abuse counseling
CPT/HCPCS: 71271; 99214

== ENCOUNTER → 2022-06-23 10:18 | Outpatient (BNVA) | payer MEDICARE, MEDICAID, SELFPAY | PROVIDERS: PCP Family Medicine; Visit Provider Podiatrist Foot & Ankle Surgery | DX: E11.8 Type 2 diabetes mellitus with unspecified complications (principal); E11.42 Type 2 diabetes mellitus with diabetic polyneuropathy; L60.3 Nail dystrophy; I73.9 Peripheral vascular disease, unspecified; M21.41 Flat foot [pes planus] (acquired), right foot; M21.42 Flat foot [pes planus] (acquired), left foot | CPT/HCPCS: 11721 ==

== ENCOUNTER → 2022-07-21 13:21 | Outpatient (BNVA) | payer MEDICARE, MEDICAID, SELFPAY | PROVIDERS: PCP Family Medicine; Visit Provider Nurse Practitioner Family | DX: I48.0 Paroxysmal atrial fibrillation (principal); F17.210 Nicotine dependence, cigarettes, uncomplicated; I11.0 Hypertensive heart disease with heart failure; I50.22 Chronic systolic (congestive) heart failure | CPT/HCPCS: 93005; 99214 ==

== ENCOUNTER → 2022-09-01 09:46 | Outpatient (BNVA) | payer MEDICARE, MEDICAID, SELFPAY | PROVIDERS: PCP Family Medicine; Visit Provider Podiatrist Foot & Ankle Surgery | DX: I73.9 Peripheral vascular disease, unspecified (principal); E11.8 Type 2 diabetes mellitus with unspecified complications; E11.42 Type 2 diabetes mellitus with diabetic polyneuropathy; L60.3 Nail dystrophy; M21.41 Flat foot [pes planus] (acquired), right foot; M21.42 Flat foot [pes planus] (acquired), left foot | CPT/HCPCS: 11721 ==

== ENCOUNTER 2022-09-27 11:53 | Outpatient (CLI) | payer MEDICARE, MEDICAID, SELFPAY ==
--- NOTE | 2022-09-27 12:30 | CT_ITS ---
WS: [id number] CT CHEST WITHOUT INTRAVENOUS CONTRAST HISTORY: 6 month f/u cavitary lesion left upper lobe TECHNIQUE: Contiguous 5 mm axial imaging performed on the thorax. Coronal and sagittal reformats are submitted. All CT scans at [facility] use at least one of these dose optimization techniques: automated exposure control; mA and/or kV adjustment per patient size (includes targeted exams where dose is matched to clinical indication); or iterative reconstruction. CONTRAST: None DLP: 733.78 mGy.cm COMPARISON: 04/19/2022, 04/08/2021 Lungs and central airway: Mild pulmonary hyperexpansion. The cavitary lesion with asymmetric wall thi ckening in the periphery of the LEFT upper lobe is reidentified. Maximum diameter is 11 mm of the cav itary lesion. This lesion does abut the pleura. The asymmetric wall thickening measures up to 5 mm. T his is best seen on the sagittal reformat. The dwyer appear slightly more spiculated and solid althou gh this is compared to a lung screening examination. Mild thickening along the RIGHT major fissure. Pleura: Normal. No pleural effusion. Heart and pericardium: Mild enlargement of the heart. No effusion. Scattered coronary artery calcific ations within the LEFT main coronary and also the LEFT anterior descending and circumflex arteries. Mediastinum and stephen: No mediastinum or hilar adenopathy. Vessels: Normal size aortic and pulmonary artery. No coronary artery calcifications. Chest wall and lower neck: No soft tissue masses. Upper abdomen: LEFT adrenal mass stable measuring 20 x 23 mm. Hounsfield units are low suggesting ayana noma. Additional mild thickening of the RIGHT adrenal gland also suspicious for an adenoma. Bilateral low-attenuation masses in the upper pole of each kidney. Hounsfield units are low. Favor these are p robably cysts but incompletely imaged. If further imaging is necessary ultrasound may provided additi onal characterization. Low-attenuation 5 mm nodule in the liver. Osseous structures: Mild increase in thoracic kyphosis. Ankylosis of the thoracic spine. CT/CT chest wo con [id number] IMPRESSION: 1. No significant increase in size of cavitary nodule LEFT upper lobe. Maximum diameter of 11 mm. There is mild asymmetric thickening of the cavitary lesion wall measuring 5 mm. Close continued surveillance and follow-up is recommended. 2. Bilateral adrenal adenomas.
== END 2022-09-27 11:54 | disposition home or self-care (01) ==
LOC: RAD 11:54
PROVIDERS: PCP Family Medicine; Visit Provider Internal Medicine Pulmonary Disease
DX: R91.8 Other nonspecific abnormal finding of lung field (principal)
CPT/HCPCS: 71250

== ENCOUNTER → 2022-10-25 16:52 | Outpatient (BNVA) | payer MEDICARE, MEDICAID, SELFPAY | PROVIDERS: PCP Family Medicine; Visit Provider Internal Medicine Pulmonary Disease | DX: I50.9 Heart failure, unspecified (principal); J18.9 Pneumonia, unspecified organism; Z95.5 Presence of coronary angioplasty implant and graft; J44.9 Chronic obstructive pulmonary disease, unspecified; I48.0 Paroxysmal atrial fibrillation; I25.5 Ischemic cardiomyopathy; G47.33 Obstructive sleep apnea (adult) (pediatric); Z71.6 Tobacco abuse counseling; F17.210 Nicotine dependence, cigarettes, uncomplicated; I25.10 Atherosclerotic heart disease of native coronary artery without angina pectoris; I35.0 Nonrheumatic aortic (valve) stenosis; Z99.81 Dependence on supplemental oxygen; J22 Unspecified acute lower respiratory infection | CPT/HCPCS: 36415; 71046; 83880; 99214 ==